=== PATIENT | female | born 1950 | race Caucasian/White ===

== ENCOUNTER 2020-11-12 10:33 | Outpatient (REF) | payer MEDICARE, OTHER, SELFPAY ==
[2020-11-12 10:48] LABS: MANUAL DIFF FLAG NO
[2020-11-12 10:55] LABS: Basophils Absolute Auto 0.1 X10*3/uL (0.0-0.2); Eosinophils Absolute Auto 0.3 X10*3/uL (0.0-0.4); Eosinophils Percent Auto 3.4 % (0-4); Hematocrit 45.8 % (37-47); Hemoglobin 14.7 g/dl (12.0-16.0); Imm Gran Abs Auto 0.03 X10*3/uL (0.00-0.03); Imm Gran Pct Auto 0.4 % (0.0-0.4); Lymphocytes Absolute Auto 2.3 X10*3/uL (1.2-4.9); Lymphocytes Percent Auto 27.4 % (20-40); Mean Corpuscular HGB Conc 32.1 g/dl (31.0-35.0); Mean Corpuscular Hemoglobin 30.6 pg (27.0-33.0); Mean Corpuscular Volume 95.2 fL (80-98); Mean Platelet Volume 9.9 fL (9.4-12.3); Monocytes Absolute Auto 0.7 X10*3/uL (0.1-1.2); Neutrophils Absolute Auto 4.9 X10*3/uL (2.0-8.3); Neutrophils Percent Auto 59.8 % (45-73); Platelet Count 336 X10*3/uL (160-400); Red Blood Count 4.81 X10*6/uL (4.20-5.50); Red Cell Distribution Width 11.9 % (11.0-16.0); White Blood Count 8.2 X10*3/uL (4.8-10.8)
[2020-11-12 11:04] LABS: Estimated Average Glucose 114 mg/dL; Hemoglobin A1c % 5.6 %
[2020-11-12 11:10] LABS: Glucose Urine UA NEG (NEG); Leukocyte Esterase Urine 1+ (NEG); Nitrite Urine NEG (NEG); Urine Blood 1+ (NEG); Urine Ketones NEG (NEG); Urine Protein NEG (NEG-TRACE)
[2020-11-12 11:15] LABS: Appearance Urine HAZY; Color Urine YELLOW
[2020-11-12 11:27] LABS: Alanine Aminotransferase 13 U/L (0-31); Alkaline Phosphatase 90 U/L (39-117); Anion Gap 12 (12-20); Aspartate Amino Transferase 18 U/L (5-31); Bilirubin Total 0.7 mg/dL (0.0-1.0); Blood Urea Nitrogen 14 mg/dL (9-16); Calcium 8.6 mg/dL (8.4-10.2); Carbon Dioxide 29 mmol/L (22-29); Chloride 104 mmol/L (96-108); Cholesterol 158 mg/dL; Estimated Glomerular Filt Rate > 60; Glucose Fasting 105 mg/dL (60-99); HDL Cholesterol 67 mg/dL; LDL Cholesterol Calculated 76 mg/dl; Potassium 4.4 mmol/L (3.3-5.1); Sodium 141 mmol/L (135-145); Total Protein 6.8 g/dL (6.5-8.0); Triglycerides 75 mg/dL
[2020-11-12 11:54] LABS: TSH reflex Free T4 6.31 uIU/mL (0.32-4.0); Vitamin D 25-OH Total 46.9 ng/mL (>30)
[2020-11-12 12:02] LABS: Squamous Epithelial Cell Urine 1+ /LPF
[2020-11-12 12:03] LABS: Bacteria Urine TRACE /LPF; Hyaline Casts Urine 0-2 /LPF; Mucus Urine 1+ /LPF; Renal Epithelial Cells Urine 1+ /LPF
[2020-11-12 12:36] LABS: Free T4 (Free Thyroxine) 1.35 ng/dL (0.71-1.85)
[2020-11-12 16:00] LABS: Reflex LDLD? No
== END 2020-11-12 10:34 | disposition home or self-care (01) ==
LOC: HO.LNP 10:33
PROVIDERS: PCP Internal Medicine; Visit Provider Internal Medicine
DX: E03.9 Hypothyroidism, unspecified (principal); R73.03 Prediabetes; E78.00 Pure hypercholesterolemia, unspecified; E55.9 Vitamin D deficiency, unspecified; I10 Essential (primary) hypertension; R31.29 Other microscopic hematuria
CPT/HCPCS: 80053; 80061; 81001; 81003; 82306; 83036; 84439; 84443; 85025

== ENCOUNTER 2020-12-17 09:40 | Outpatient (REF) | payer MEDICARE, OTHER, SELFPAY ==
--- NOTE | ~2020-12-17 | MM_ITS ---
EXAMINATION: BONE DENSITOMETRY CLINICAL INDICATION: Screening for osteoporosis. COMPARISON: Baseline BD dated 11/16/2017. TECHNIQUE: Using a [employer] DXA System (software version: 13.1) manufactured by [employer], dual-energy x-ray absorptiometry was performed of the lumbar spine and left hip. The images are of good technical quality. Summary results are attached. FINDINGS: AP SPINE L2-L4 (L3) (excluding L1 and L3): The data of L1-L4 has been changed to exclude the L1 and L3 vertebral bodies, because degenerative changes at these levels may cause overestimation of lumbar spine density. Current: BMD 0.943 g/cm2, Z-score -1.2, T-score -2.1, osteopenia, 1.6% decrease from baseline (<5% change is not significant). Baseline: BMD 0.958 g/cm2. LEFT FEMUR, NECK: Current: BMD 0.765 g/cm2, Z-score -0.8, T-score -2.0, osteopenia. Baseline: BMD 0.826 g/cm2. LEFT FEMUR, TOTAL: Current: BMD 0.850 g/cm2, Z-score -0.4, T-score -1.3, osteopenia, 4.4% decrease from baseline (<5% change is not significant). Baseline: BMD 0.889 g/cm2. IDENTIFIED RISK FACTORS: Height loss, history of fracture (adult). Early menopause, secondary osteoporosis. HISTORY OF FRACTURE: Ankle. MEDICATIONS: Vitamin D. MM/XR DEXA axial skeleton IMPRESSION: 1. DIAGNOSIS: Osteopenia based on the lowest T-score value of -2.1 in the lumbar spine applying World Health Organization criteria. 2. 10-YEAR FRACTURE RISK PREDICTION, FRAX: Major osteoporotic fracture (clinical spine, forearm, hip or shoulder) 10.4%. Hip fracture 1.8%. 3. Treatment Recommendations: NOF guidelines recommend consideration for treatment in postmenopausal women and men age 50 and older presenting with the following: -A hip or vertebral (clinical or morphometric) fracture. -T-score less than or equal to -2.5 at the femoral neck or spine after appropriate evaluation to exclude secondary causes. -Low bone mass at the hip or spine and a 10-year fracture probability by FRAX of greater than or equal to 3% for hip fracture or greater than or equal to 20% for major osteoporotic fracture based on the [place] adapted WHO algorithm. 4. Other Recommendations: All treatment decisions require clinical judgment and consideration of individual patient factors, including patient preferences, comorbidities, previous drug use, risk factors not captured in the FRAX model (e.g. frailty, falls, vitamin D deficiency, increased bone turnover, interval significant decline in bone density) and possible under or overestimation of fracture risk by FRAX. Additional medical evaluation for secondary cause of low bone mineral density may be appropriate. FUTURE SCAN RECOMMENDATION: People with diagnosed cases of osteoporosis or at high risk for fracture should have regular bone mineral density tests. For patients eligible for Medicare, routine testing is allowed once every 2 years. The testing frequency can be increased to one year for patients who have rapidly progressing disease, those who are receiving or discontinuing medical therapy to restore bone mass, or have additional risk factors.
== END 2020-12-17 09:41 | disposition home or self-care (01) ==
LOC: HO.MAMMO 09:40
PROVIDERS: Visit Provider Internal Medicine
DX: Z13.820 Encounter for screening for osteoporosis (principal); Z78.0 Asymptomatic menopausal state; R29.890 Loss of height; Z79.899 Other long term (current) drug therapy
CPT/HCPCS: 77080

== ENCOUNTER 2021-05-05 09:02 | Outpatient (REF) | payer MEDICARE, OTHER, SELFPAY ==
--- NOTE | ~2021-05-05 | MM_ITS ---
EXAMINATION: MM SCREENING DIGITAL BREAST TOMOSYNTHESIS, BILATERAL CLINICAL INFORMATION: Screening. Asymptomatic. The lifetime risk of breast cancer based on the Tyrer-Cuzick Model is 4%. COMPARISON: Mammography: 04/29/2020, 04/24/2019, 04/21/2018 TECHNIQUE: Digital breast tomosynthesis is performed in both the craniocaudal and mediolateral oblique views along with computer-aided detection (CAD). Synthesized 2D images are generated from the tomosynthesis. FINDINGS: The breasts are heterogeneously dense, which may obscure small masses (ACR BI-RADS breast composition Category c). Parenchymal pattern is similar to prior studies. There are chronic bilateral parenchymal asymmetries similar to prior exams. No developing density. No interval mass or architectural abnormality or abnormal calcifications. The axilla and skin contours are unremarkable. MM/MM tomosynthesis screening BI IMPRESSION: There are no significant changes from prior exams. ASSESSMENT: BI-RADS 2: Benign RECOMMENDATION: Routine annual mammography screening. This patient's information was entered into a reminder system with a target due date for their next mammogram.
== END 2021-05-05 09:03 | disposition home or self-care (01) ==
LOC: HO.MAMMO 09:02
PROVIDERS: PCP Internal Medicine; Visit Provider Internal Medicine
DX: Z12.31 Encounter for screening mammogram for malignant neoplasm of breast (principal)
CPT/HCPCS: 77063; 77067

== ENCOUNTER 2021-05-23 10:35 | Outpatient (REF) | payer MEDICARE, OTHER, SELFPAY ==
[2021-05-23 11:19] LABS: Alanine Aminotransferase 13 U/L (0-31); Albumin Level 3.8 g/dL (3.5-5.0); Alkaline Phosphatase 85 U/L (39-117); Aspartate Amino Transferase 18 U/L (5-31); Bilirubin Direct 0.2 mg/dL (0.0-0.5); Bilirubin Total 0.5 mg/dL (0.0-1.0); Cholesterol 151 mg/dL; HDL Cholesterol 63 mg/dL; LDL Cholesterol Calculated 74 mg/dl; Total Protein 6.2 g/dL (6.5-8.0); Triglycerides 74 mg/dL
[2021-05-23 11:41] LABS: TSH reflex Free T4 5.89 uIU/mL (0.32-4.0)
[2021-05-23 11:44] LABS: Reflex LDLD? No
[2021-05-23 12:16] LABS: Free T4 (Free Thyroxine) 1.31 ng/dL (0.71-1.85)
== END 2021-05-23 10:36 | disposition home or self-care (01) ==
LOC: HO.LNP 10:35
PROVIDERS: Visit Provider Internal Medicine
DX: E78.00 Pure hypercholesterolemia, unspecified (principal); E03.9 Hypothyroidism, unspecified
CPT/HCPCS: 80061; 80076; 84439; 84443

== ENCOUNTER 2021-07-03 20:03 | Emergency (ER) | payer MEDICARE, OTHER, SELFPAY ==
--- NOTE | ~2021-07-03 | XR_ITS ---
EXAMINATION: XR CHEST CLINICAL INFORMATION: Cough and palpitations. COMPARISON: Chest radiograph dated from 06/12/2017. TECHNIQUE: AP view of the chest was obtained. FINDINGS: No significant abnormality is noted involving the heart, lungs, mediastinum, bony thorax or soft tissues. XR/XR chest 1V IMPRESSION: No acute cardiopulmonary findings.
[2021-07-03 20:08] VITALS: BP 181/98; PULSE 114; RESP 19; TEMP 36.9; O2SAT 96; BMI 35.9
--- NOTE | 2021-07-03 20:13 | ECG_ITS ---
Test Reason : CHEST PAIN Blood Pressure : / mmHG Vent. Rate : 111 BPM Atrial Rate : 111 BPM P-R Int : 160 ms QRS Dur : 076 ms QT Int : 344 ms P-R-T Axes : 072 -17 050 degrees QTc Int : 467 ms Sinus tachycardia RSR' or QR pattern in V1 suggests right ventricular conduction delay Borderline ECG No Previous EKG's. Referred By: Generic ED Physician Electronically Signed By:PAUL KING MD
--- NOTE | 2021-07-03 20:25 | ED.ARRPALP ---
HPI - Arrhythmia/Palpitations General Chief Complaint: Arrhythmia/Palpitations Stated Complaint: palpitations Time Seen by Provider: 07/03/21 20:25 Source: patient Mode of arrival: ambulatory Limitations: no limitations History of Present Illness HPI narrative: Patient with no history of cardiac arrhythmias in the past had slight palpitation last night which lasted only for few minutes today while at rest noticed sudden onset of palpitation which lasted longer with dizziness got diaphoretic nauseated had some chest tightness lasted longer than last night when patient arrived heart rate was 114 supraventricular tachycardia. Patient was feeling much better at this time. Patient history of hypothyroidism recently increased the dose of levothyroxine from 88 mcg 200 mcg for TSH of 5.89 on 05/23 Related Data Allergies Allergy/AdvReac Type Severity Reaction Status Date / Time Penicillins [PENICILLINS] Allergy Intermediate RASH Verified 07/03/21 20:08 Review of Systems Review of Systems: Yes all other systems are reviewed and are negative PMFSH Past Medical History Medical History High cholesterol Hypothyroid Social History Social History Alcohol intake: never Patient Tobacco Use Status: Never used Tobacco Use of substances other than those prescribed or required for medical reasons: No Advance Directives: No Advance Directives Information Provided: No Physical Exam Vital Signs: Vital Signs: Last Vital Signs Temp 98.4 F 07/03/21 20:08 Pulse 101 H 07/03/21 20:44 Resp 19 07/03/21 20:08 BP 188/89 H 07/03/21 20:44 Pulse Ox 96 07/03/21 20:08 Body Mass Index 35.9 Appearance: Alert. Oriented X3. No acute distress. Eyes: No pallor/ icterus ENT: Pharynx normal. Oral Mucosa moist Neck: Normal inspection. Neck supple. CVS: Tachycardia no murmur or gallop Pulses normal. Respiratory: No respiratory distress. Equal air entry bilateral, no wheezing/rales/rhonchi Abdomen: Soft and nontender. Bowel sounds are present, no mass palpable, no CVA tenderness Skin: Skin warm and dry. Normal skin color. Normal skin turgor. Extremities: No lower extremity edema. No calf tenderness Neuro: Oriented X 3. No motor deficit. MDM - Arrhythmia/Palpitations MDM Narrative Medical decision making narrative: Patient with SVT responded to IV Lopressor heart rate in 70s now clinically euthyroid. Patient advised to follow-up with insulation nozzleman for further evaluation ask her to come back to the ER if recurrence of episodes of lasting longer Lab Data Attestation: I reviewed the patient's lab results. Result diagrams: 07/03/21 20:07/03/21 20: Labs: Lab Results 07/03/21 07/03/21 07/03/21 Range/Units 20: 20: 20: WBC 10.5 (4.8-10.8) X10*3/uL RBC 4.59 (4.20-5.50) X10*6/uL Hgb 14.5 (12.0-16.0) g/dl Hct 43.9 (37-47) % MCV 95.6 (80-98) fL MCH 31.6 (27.0-33.0) pg MCHC 33.0 (31.0-35.0) g/dl RDW 12.4 (11.0-16.0) % Plt Count 325 (160-400) X10*3/uL MPV 9.4 (9.4-12.3) fL Immature Gran % (Auto) 0.3 (0.0-0.4) % Neut % (Auto) 58.8 (45-73) % Lymph % (Auto) 28.5 (20-40) % Mclean % (Auto) 8.6 (2-11) % Eos % (Auto) 3.0 (0-4) % Baso % (Auto) 0.8 (0-2) % Lymph # (Auto) 3.0 (1.2-4.9) X10*3/uL Mclean # (Auto) 0.9 (0.1-1.2) X10*3/uL Eos # (Auto) 0.3 (0.0-0.4) X10*3/uL Baso # (Auto) 0.1 (0.0-0.2) X10*3/uL Abs Immat Gran (auto) 0.03 (0.00-0.03) X10*3/uL Absolute Neuts (auto) 6.2 (2.0-8.3) X10*3/uL Absolute Nucleated RBC 0.000 (0.0-0.012) X10*3/uL Nucleated RBC % (auto) 0.0 (0.0-0.2) /100WBC Sodium 138 (135-145) mmol/L Potassium 3.9 (3.3-5.1) mmol/L Chloride 102 (96-108) mmol/L Carbon Dioxide 25 (22-29) mmol/L Anion Gap 15 (12-20) BUN 12 (9-16) mg/dL Creatinine 0.92 (0.5-1.4) mg/dL Estim Creat Clear Calc 56.7 Estimated GFR > 60 Random Glucose 111 (60-115) mg/dL Calcium 8.8 (8.4-10.2) mg/dL Magnesium 2.0 (1.6-2.6) mg/dL Troponin I High Sens 6.2 (<3.5-17.0) ng/L ECG Data Attestation: I personally reviewed and interpreted this ECG as follows: Interpretation: Sinus tachycardia heart rate 111 beats per minute no acute ST T wave changes no acute ischemia Discharge Plan Discharge Clinical Impression: Supraventricular tachycardia Patient Disposition: Home, Self-Care Instructions: Supraventricular Tachycardia (ED) Additional Instructions: Rest at home Decrease caffeine intake Report to the ER/PCP if frequent/longer episode of palpitation Follow-up with insulation nozzleman for further management Referrals: Mark Mejia MD [Physician] - 2 weeks Interventions: ED Discharge Assessment Last Done: 07/03/21 22:02 Discharge Date/Time: 07/03/21 22:03
[2021-07-03 20:33] LABS: MANUAL DIFF FLAG NO
[2021-07-03 20:36] LABS: Basophils Absolute Auto 0.1 X10*3/uL (0.0-0.2); Basophils Percent Auto 0.8 % (0-2); Eosinophils Absolute Auto 0.3 X10*3/uL (0.0-0.4); Hematocrit 43.9 % (37-47); Hemoglobin 14.5 g/dl (12.0-16.0); Imm Gran Abs Auto 0.03 X10*3/uL (0.00-0.03); Imm Gran Pct Auto 0.3 % (0.0-0.4); Lymphocytes Percent Auto 28.5 % (20-40); Mean Corpuscular Hemoglobin 31.6 pg (27.0-33.0); Mean Corpuscular Volume 95.6 fL (80-98); Mean Platelet Volume 9.4 fL (9.4-12.3); Monocytes Absolute Auto 0.9 X10*3/uL (0.1-1.2); Monocytes Percent Auto 8.6 % (2-11); Neutrophils Absolute Auto 6.2 X10*3/uL (2.0-8.3); Neutrophils Percent Auto 58.8 % (45-73); Platelet Count 325 X10*3/uL (160-400); Red Blood Count 4.59 X10*6/uL (4.20-5.50); Red Cell Distribution Width 12.4 % (11.0-16.0); White Blood Count 10.5 X10*3/uL (4.8-10.8)
[2021-07-03 20:44] VITALS: BP 188/89; PULSE 101
[2021-07-03] MEDS: Metoprolol Tartrate 5 MG/5 ML VIAL IVPUSH (20:44)
[2021-07-03 20:49] LABS: Anion Gap 15 (12-20); Blood Urea Nitrogen 12 mg/dL (9-16); Calcium 8.8 mg/dL (8.4-10.2); Carbon Dioxide 25 mmol/L (22-29); Chloride 102 mmol/L (96-108); Creatinine Clr Calc Pharmacy 56.7; Estimated Glomerular Filt Rate > 60; Glucose Random 111 mg/dL (60-115); Potassium 3.9 mmol/L (3.3-5.1); Sodium 138 mmol/L (135-145)
[2021-07-03 20:55] LABS: Troponin-I High Sensitivity 6.2 ng/L (<3.5-17.0)
== END 2021-07-03 22:03 | disposition home or self-care (01) ==
PROVIDERS: Emergency Provider Internal Medicine; PCP Internal Medicine
DX: I47.1 Supraventricular tachycardia (principal); E78.5 Hyperlipidemia, unspecified; Z87.891 Personal history of nicotine dependence
CPT/HCPCS: 36415; 71045; 80048; 83735; 84484; 85025; 93005; 96374; 99285

== ENCOUNTER 2021-07-06 12:10 | Emergency (ER) | payer MEDICARE, OTHER, SELFPAY ==
--- NOTE | 2021-07-06 | ECG_ITS ---
Test Reason : DIZZINESS Blood Pressure : / mmHG Vent. Rate : 068 BPM Atrial Rate : 068 BPM P-R Int : 176 ms QRS Dur : 070 ms QT Int : 412 ms P-R-T Axes : 061 063 060 degrees QTc Int : 438 ms Normal sinus rhythm Nonspecific ST abnormality Inferior leads Abnormal ECG When compared with ECG of 03-JUL-2021 20:27, Vent. rate has decreased BY 43 BPM Referred By: Familia Billingsley Electronically Signed By:PAUL KIGN MD
[2021-07-06 12:25] VITALS: BP 150/90; PULSE 70; O2SAT 96
[2021-07-06 12:30] VITALS: BP 169/82; PULSE 69; PULSE 75; RESP 14; RESP 17; TEMP 36.9; O2SAT 94; O2SAT 95; BMI 23.3
[2021-07-06 12:31] VITALS: BP 143/76
--- NOTE | 2021-07-06 12:43 | ED_ITS ---
HPI - Dizziness General Chief Complaint: Dizziness Stated Complaint: n/v Time Seen by Provider: 07/06/21 12:20 Source: patient Mode of arrival: ambulatory Limitations: no limitations History of Present Illness HPI Narrative: patient with recent dental infection followed by SVT. Was seen for SVT in this ED and started and metoprolol and discharged home. patient has had recent increase of her thyroxine. Today had an episode of dizziness and nausea. Maday felt off balance with nausea. Currently has some nausea MD elicited complaint: dizziness Onset (ago): hour(s) Timing: sudden onset Severity: mild Description: off-balance Exacerbating factors: change in body position Associated symptoms: nausea and vomiting Related Data Allergies Allergy/AdvReac Type Severity Reaction Status Date / Time Penicillins [PENICILLINS] Allergy Intermediate RASH Verified 07/03/21 20:08 Review of Systems Constitutional: Constitutional: Reports no additional constitutional complaints Eyes: Eyes: Reports no additional eye complaints ENT: Denies dizziness Cardiovascular: Cardiovascular: Reports no additional cardiovascular complaints Respiratory: Respiratory: Reports as per HPI Gastrointestinal: Gastrointestinal: Reports no additional gastrointestinal complaints Genitourinary: Genitourinary: Reports no additional female genitourinary complaints Musculoskeletal: Musculoskeletal: Reports no additional musculoskeletal complaints Integumentary/Breasts: Skin/Breast: Denies rash Neurologic: Reports system reviewed and no additional complaints, except as documented, Denies dizziness and Denies Sensory deficit (Neuro) Psychiatric: Psychiatric: Denies anxiety PMFSH Past Medical History Medical History High cholesterol Hypothyroid Social History Social History Alcohol intake: never Patient Tobacco Use Status: Former Tobacco user Use of substances other than those prescribed or required for medical reasons: No Advance Directives: No Advance Directives Information Provided: Yes Physical Exam Vital Signs: Vital Signs: Last Vital Signs Temp 98.6 F 07/06/21 14:19 Pulse 71 07/06/21 14:19 Resp 17 07/06/21 14:19 BP 142/85 H 07/06/21 14:19 Pulse Ox 94 07/06/21 14:19 Body Mass Index 23.3 Const: General: healthy appearing Nutritional Appearance: obese Orientation/consciousness: oriented to person and patient oriented x3 Limitations: no limitations HENMT: Head: Yes normal to inspection Ears: external ears normal General nose exam: Normal external nose present Mouth: Normal oral and palatal mucosa present and oropharynx normal Throat: Yes posterior oropharynx normal Eyes: General: appearance normal, both eyes and all related structures Neck: Other: supple Neck: Yes normal visual inspection Chest: Chest palpation & inspection: normal inspection of the chest Resp: Auscultation: clear to auscultation bilaterally Cardio: Jugular venous distension: no JVD Rate: regular rate Rhythm: regular rhythm Heart sounds: S1 normal heart sound present and S2 normal heart sound present GI: Inspection: Yes normal to inspection Palpation (GI): Soft to palpation, nontender and No hepatosplenomegaly present Auscultation: normal bowel sounds : General: Yes no CVA tenderness Back/Spine/Pelvis: Back: no CVA tenderness Skin: General skin exam: no rashes or lesions noted Neuro: General: oriented to person and patient oriented x3 Cranial nerves: Yes CN's II-XII intact bilaterally Motor exam (neuro): 5/5 motor strength present throughout Sensory Exam: No Sensory deficit (Neuro) Extrem: General: Yes normal to inspection Psych: Appearance: grossly normal Course Reevaluation(s) Reevaluation #1: patient looks well, EKG and labs are normal, patient likely feeling changes in BP with standing since being on the betablocker. Discussed this with the patient Time: 14:30 [facility] - Dizziness Lab Data Result diagrams: 07/06/21 13:27 07/06/21 13:27 Labs: Lab Results 07/06/21 07/06/21 07/06/21 Range/Units 13:26 13:27 13:27 WBC 9.2 (4.8-10.8) X10*3/uL RBC 4.51 (4.20-5.50) X10*6/uL Hgb 14.1 (12.0-16.0) g/dl Hct 43.0 (37.0-47.0) % MCV 95.3 (80.0-98.0) fL MCH 31.3 (27.0-33.0) pg MCHC 32.8 (31.0-35.0) g/dl RDW 12.5 (11.0-16.0) % Plt Count 297 (160-400) X10*3/uL MPV 9.6 (9.4-12.3) fL Immature Gran % (Auto) 0.3 (0.0-0.4) % Neut % (Auto) 73.8 H (45-73) % Lymph % (Auto) 15.5 L (20-40) % Davidson % (Auto) 7.6 (2-11) % Eos % (Auto) 1.9 (0-4) % Baso % (Auto) 0.9 (0-2) % Lymph # (Auto) 1.4 (1.2-4.9) X10*3/uL Davidson # (Auto) 0.7 (0.1-1.2) X10*3/uL Eos # (Auto) 0.2 (0.0-0.4) X10*3/uL Baso # (Auto) 0.1 (0.0-0.2) X10*3/uL Abs Immat Gran (auto) 0.03 (0.00-0.03) X10*3/uL Absolute Neuts (auto) 6.82 (2.0-8.3) x10*3/uL Absolute Nucleated RBC 0.000 (0.0-0.012) X10*3/uL Nucleated RBC % (auto) 0.0 (0.0-0.2) /100WBC Sodium 139 (135-145) mmol/L Potassium 4.4 (3.3-5.1) mmol/L Chloride 104 (96-108) mmol/L Carbon Dioxide 27 (22-29) mmol/L Anion Gap 12 (12-20) BUN 12 (9-16) mg/dL Creatinine 0.92 (0.5-1.4) mg/dL Estim Creat Clear Calc 51.2 Estimated GFR > 60 Random Glucose 120 H (60-115) mg/dL Calcium 8.7 (8.4-10.2) mg/dL Troponin I High Sens (<3.5-17.0) ng/L COVID-19 ([facility]) Negative (Negative) COVID-19 Clin Com See Note 07/06/21 Range/Units 13:27 WBC (4.8-10.8) X10*3/uL RBC (4.20-5.50) X10*6/uL Hgb (12.0-16.0) g/dl Hct (37.0-47.0) % MCV (80.0-98.0) fL MCH (27.0-33.0) pg MCHC (31.0-35.0) g/dl RDW (11.0-16.0) % Plt Count (160-400) X10*3/uL MPV (9.4-12.3) fL Immature Gran % (Auto) (0.0-0.4) % Neut % (Auto) (45-73) % Lymph % (Auto) (20-40) % Davidson % (Auto) (2-11) % Eos % (Auto) (0-4) % Baso % (Auto) (0-2) % Lymph # (Auto) (1.2-4.9) X10*3/uL Davidson # (Auto) (0.1-1.2) X10*3/uL Eos # (Auto) (0.0-0.4) X10*3/uL Baso # (Auto) (0.0-0.2) X10*3/uL Abs Immat Gran (auto) (0.00-0.03) X10*3/uL Absolute Neuts (auto) (2.0-8.3) x10*3/uL Absolute Nucleated RBC (0.0-0.012) X10*3/uL Nucleated RBC % (auto) (0.0-0.2) /100WBC Sodium (135-145) mmol/L Potassium (3.3-5.1) mmol/L Chloride (96-108) mmol/L Carbon Dioxide (22-29) mmol/L Anion Gap (12-20) BUN (9-16) mg/dL Creatinine (0.5-1.4) mg/dL Estim Creat Clear Calc Estimated GFR Random Glucose (60-115) mg/dL Calcium (8.4-10.2) mg/dL Troponin I High Sens 3.6 (<3.5-17.0) ng/L COVID-19 ([facility]) (Negative) COVID-19 Clin Com Discharge Plan Discharge Clinical Impression: Dizziness Adverse reaction to drug Qualifiers: Encounter type: initial encounter Qualified Code(s): T50.905A - Adverse effect of unspecified drugs, medicaments and biological substances, initial encounter Patient Disposition: Home, Self-Care Instructions: Lightheadedness (ED) Referrals: Andrew Waldrop MD [Primary Care Provider] - 1 week
[2021-07-06 13:32] LABS: Basophils Absolute Auto 0.1 X10*3/uL (0.0-0.2); Basophils Percent Auto 0.9 % (0-2); Eosinophils Absolute Auto 0.2 X10*3/uL (0.0-0.4); Eosinophils Percent Auto 1.9 % (0-4); Hemoglobin 14.1 g/dl (12.0-16.0); Imm Gran Abs Auto 0.03 X10*3/uL (0.00-0.03); Imm Gran Pct Auto 0.3 % (0.0-0.4); Lymphocytes Absolute Auto 1.4 X10*3/uL (1.2-4.9); Lymphocytes Percent Auto 15.5 % (20-40); MANUAL DIFF FLAG NO; Mean Corpuscular HGB Conc 32.8 g/dl (31.0-35.0); Mean Corpuscular Hemoglobin 31.3 pg (27.0-33.0); Mean Corpuscular Volume 95.3 fL (80.0-98.0); Mean Platelet Volume 9.6 fL (9.4-12.3); Monocytes Absolute Auto 0.7 X10*3/uL (0.1-1.2); Monocytes Percent Auto 7.6 % (2-11); Neutrophils Absolute Auto 6.82 x10*3/uL (2.0-8.3); Neutrophils Percent Auto 73.8 % (45-73); Platelet Count 297 X10*3/uL (160-400); Red Blood Count 4.51 X10*6/uL (4.20-5.50); Red Cell Distribution Width 12.5 % (11.0-16.0); White Blood Count 9.2 X10*3/uL (4.8-10.8)
[2021-07-06 13:49] LABS: COVID-19 Test Negative (Negative)
[2021-07-06 13:54] LABS: Anion Gap 12 (12-20); Blood Urea Nitrogen 12 mg/dL (9-16); Calcium 8.7 mg/dL (8.4-10.2); Carbon Dioxide 27 mmol/L (22-29); Chloride 104 mmol/L (96-108); Creatinine Clr Calc Pharmacy 51.2; Estimated Glomerular Filt Rate > 60; Glucose Random 120 mg/dL (60-115); Potassium 4.4 mmol/L (3.3-5.1); Sodium 139 mmol/L (135-145)
[2021-07-06 14:01] LABS: Troponin-I High Sensitivity 3.6 ng/L (<3.5-17.0)
[2021-07-06 14:19] VITALS: BP 142/85; PULSE 71; RESP 17; TEMP 37; O2SAT 94
[2021-07-06 14:56] VITALS: BP 140/89; PULSE 77; RESP 15; TEMP 37; O2SAT 93
== END 2021-07-06 15:15 | disposition home or self-care (01) ==
PROVIDERS: Emergency Provider Emergency Medicine; PCP Internal Medicine
DX: R42 Dizziness and giddiness (principal); R11.0 Nausea; T44.7X5A Adverse effect of beta-adrenoreceptor antagonists, initial encounter; Y92.019 Unspecified place in single-family (private) house as the place of occurrence of the external cause; E78.00 Pure hypercholesterolemia, unspecified; Z20.822 Contact with and (suspected) exposure to COVID-19
CPT/HCPCS: 36415; 80048; 84484; 85025; 87635; 93005; 99283; 99285

== ENCOUNTER → 2021-07-14 11:25 | Outpatient (BNVA) | payer MEDICARE, OTHER, SELFPAY | PROVIDERS: PCP Internal Medicine; Referring Provider Internal Medicine; Visit Provider Internal Medicine Cardiovascular Disease | DX: R00.2 Palpitations (principal) | CPT/HCPCS: 93005; 99202 ==

== ENCOUNTER → 2021-07-22 13:42 | Outpatient (REF) | payer MEDICARE, OTHER, SELFPAY ==
--- NOTE | 2021-07-22 13:44 | HM_ITS ---
Patient is a 71-year-old female. REQUESTING PROVIDER: Mark Mejia M.D. INDICATION FOR TEST: Palpitations. INTERPRETATION: The patient is hooked up to cardiac event monitor from 07/22/2021, to 08/21/2021. I was asked to interpret this report today. FINDINGS: Baseline rhythm was normal sinus rhythm with average heart rate varying from 62 beats per minute to 97 beats per minute. There were rare isolated PVCs noted. The patient reported 9 events; however, only had symptoms reported on 1 of the events, which correlated to sinus rhythm. Remainder of the 7 events, no symptoms were selected and 2 of those correlated with isolated PVCs. CONCLUSION: 1. Event monitor is remarkable. Baseline normal sinus rhythm with very rare PVCs. 2. 2 of the 8 events reported by the patient with no symptoms selected to correlate rare isolated PVCs. MD FABIOLA Khan/MODL / [id number]
== END ==
LOC: HO.CARD 13:42
PROVIDERS: Visit Provider Internal Medicine Cardiovascular Disease
DX: R00.2 Palpitations (principal)
CPT/HCPCS: 93270

== ENCOUNTER → 2021-09-01 13:46 | Outpatient (REF) | payer MEDICARE, OTHER, SELFPAY ==
--- NOTE | 2021-09-01 13:50 | CA_ITS ---
Transthoracic Echocardiogram Patient (Last, First, Middle): Lily Feliz, Gender: Female Date of : 1950 Age: 71 Procedure Date: 09/01/2021 Procedure Type: Transthoracic Echocardiogram Location: OP Height: 157.48 cm Weight: 88.45 kg BSA: 1.89 m2 Heart Rate: bpm BP: 124 / 70 mmHg Cable Maintainer: Referring MD: Mark Mejia MD Senior Technical Project Manager: Mark Mejia MD Symptoms: R00.2 - Palpitations Study Quality: Fair ECG Rhythm: Sinus Conclusions: - Normal left ventricular size and systolic function. - Diastolic function is normal for age. - Normal right ventricular cavity size and systolic function. - No significant valvular or pericardial pathology. Findings Left Ventricle Normal left ventricular size and systolic function. There is mildly increased left ventricular wall thickness. The visually estimated ejection fraction is between 55-60%. There is no evidence of regional wall motion abnormalities. Diastolic function is normal for age. Right Ventricle Normal right ventricular cavity size and systolic function. Atria Both atria are normal in size. Aortic Valve The aortic valve structure and function is likely normal. There is no aortic valve stenosis. There is no aortic valve regurgitation. Mitral Valve Normal mitral valve structure and function. There is trace mitral valve regurgitation. There is no mitral valve stenosis. Pulmonic Valve The pulmonic valve is likely normal. Tricuspid Valve Normal tricuspid valve structure and function. There is no tricuspid valve regurgitation. Normal right atrial pressure. There is no evidence of pulmonary hypertension. Great Vessels All visible segments of the aorta are normal in size. The pulmonary artery was not well visualized. Venous The inferior vena cava is normal in size and collapses greater than 50% with inspiration. Pericardium/Pleural There is no evidence of pericardial effusion. Prior Study Comparison No prior study available for comparison. Measurements 2D Linear Measurements IVSd: 1.14 0.6-0.9/0.6-1.0 cm LVIDd: 3.37 3.9-5.3/4.2-5.9 cm LVIDd Index: 1.78 2.4-3.2/2.2-3.1 cm/m2 LVIDs: 2.30 2.0-3.6 cm LVPWd: 1.13 0.7-1.1 cm Ao Root: 2.90 2.1-3.5 cm LA Diam: 2.30 2.7-3.8/3.0-4.0 cm LAIDs Index: 1.22 1.5-2.3 cm/m2 LV Mass: 146.78 67-162/88-224 g LV Mass Index: 77.66 43-95/49-115 g/m2 LVOT Diam: 1.80 3.0+(-)1.3 cm 2D Systolic Function EF 4C: 54.90 >55% EF 2C: 57.80 >55% EF BiP: 57.40 >55% Mitral Valve MV Pk E: 0.55 MV PK A: 0.85 MV Decel Time: 266.00 E/A: 0.60 E'Lateral: 9.14 E'Medial: 6.74 E/E' Med: 8.10 E/E' Lat: 6.00 PHT: 78.00 MVA PHT: 2.82 Decel [place]: 2.07 Aortic Valve AoV Pk Tadeo: 1.15 AoV Mn Tadeo: 0.75 AoV VTI: 0.28 AoV Pk Grad: 5.00 Aov Mn Grad: 3.00 KOFI Cont.VTI: 2.28 LVOT LVOT Pk Tadeo: 1.06 LVOT Mn Tadeo: 0.63 LVOT VTI: 0.25 LVOT Pk Grad: 4.00 LVOT Mn Grad: 2.00 LVOT Diam: 1.80 LVOT Area: 2.54 Diastolic Function MV Pk E: 0.55 MV Pk A: 0.85 E/A: 0.60 E'Medial: 6.74 E/E' Med: 8.10 E' Laterial: 9.14 E/E' Lat: 6.00 Right Ventricle TAPSE (mm): 17.00 TVS' Tadeo: 11.00 Tricuspid Valve TR Pk Tadeo: 2.31 TR Pk Grad: 21.00 RA Press: 3.00 RVSP: 24.00 Great Vessels Aorta Ao Root-2D: 2.90 2.0-3.7 cm Ao Asc: 3.30 2.1-3.4 cm Pulmonary Valve PV Pk Tadeo: 0.87 Peak PV Grad: 3.00 Updated in Other Vendor System with Status of Final Mark Mejia MD electronically signed on 09/02/2021 12:34:57 PM with status of Final
== END ==
LOC: HO.CARD 13:46
PROVIDERS: Visit Provider Internal Medicine Cardiovascular Disease
DX: R00.2 Palpitations (principal)
CPT/HCPCS: 93306

== ENCOUNTER → 2021-09-22 14:58 | Outpatient (BNVA) | payer MEDICARE, OTHER, SELFPAY | PROVIDERS: PCP Internal Medicine; Referring Provider Internal Medicine; Visit Provider Internal Medicine Cardiovascular Disease | DX: R00.2 Palpitations (principal) | CPT/HCPCS: 99212 ==

== ENCOUNTER 2021-09-25 10:33 | Outpatient (REF) | payer MEDICARE, OTHER, SELFPAY ==
[2021-09-25 12:33] LABS: Free T4 (Free Thyroxine) 1.23 ng/dL (0.71-1.85)
== END 2021-09-25 10:34 | disposition home or self-care (01) ==
LOC: HO.LNP 10:33
PROVIDERS: Visit Provider Internal Medicine
DX: E03.9 Hypothyroidism, unspecified (principal)
CPT/HCPCS: 84439; 84443

== ENCOUNTER 2021-11-24 10:26 | Outpatient (REF) | payer MEDICARE, OTHER, SELFPAY ==
[2021-11-24 10:39] LABS: MANUAL DIFF FLAG NO
[2021-11-24 11:53] LABS: Basophils Absolute Auto 0.1 X10*3/uL (0.0-0.2); Basophils Percent Auto 1.2 % (0-2); Eosinophils Absolute Auto 0.3 X10*3/uL (0.0-0.4); Hematocrit 45.1 % (37.0-47.0); Hemoglobin 14.3 g/dl (12.0-16.0); Imm Gran Abs Auto 0.03 X10*3/uL (0.00-0.03); Imm Gran Pct Auto 0.3 % (0.0-0.4); Lymphocytes Percent Auto 30.9 % (20-40); Mean Corpuscular HGB Conc 31.7 g/dl (31.0-35.0); Mean Corpuscular Hemoglobin 30.8 pg (27.0-33.0); Mean Corpuscular Volume 97.2 fL (80.0-98.0); Mean Platelet Volume 10.6 fL (9.4-12.3); Monocytes Absolute Auto 0.9 X10*3/uL (0.1-1.2); Monocytes Percent Auto 9.4 % (2-11); Neutrophils Absolute Auto 5.4 x10*3/uL (2.0-8.3); Neutrophils Percent Auto 55.2 % (45-73); Platelet Count 310 X10*3/uL (160-400); Red Blood Count 4.64 X10*6/uL (4.20-5.50); Red Cell Distribution Width 12.4 % (11.0-16.0); White Blood Count 9.8 X10*3/uL (4.8-10.8)
[2021-11-24 12:13] LABS: Alanine Aminotransferase 14 U/L (0-31); Albumin Level 3.8 g/dL (3.5-5.0); Alkaline Phosphatase 86 U/L (39-117); Anion Gap 11 (12-20); Aspartate Amino Transferase 18 U/L (5-31); Bilirubin Total 0.6 mg/dL (0.0-1.0); Blood Urea Nitrogen 15 mg/dL (9-16); Calcium 8.9 mg/dL (8.4-10.2); Carbon Dioxide 29 mmol/L (22-29); Chloride 103 mmol/L (96-108); Cholesterol 155 mg/dL; Estimated Glomerular Filt Rate > 60; Glucose Fasting 105 mg/dL (60-99); HDL Cholesterol 60 mg/dL; LDL Cholesterol Calculated 82 mg/dl; Potassium 4.1 mmol/L (3.3-5.1); Sodium 139 mmol/L (135-145); Total Protein 6.4 g/dL (6.5-8.0); Triglycerides 69 mg/dL
[2021-11-24 12:21] LABS: Vitamin D 25-OH Total 48.5 ng/mL (>30)
[2021-11-24 13:11] LABS: Free T4 (Free Thyroxine) 1.34 ng/dL (0.71-1.85)
== END 2021-11-24 10:27 | disposition home or self-care (01) ==
LOC: HO.LNP 10:26
PROVIDERS: PCP Internal Medicine; Visit Provider Internal Medicine
DX: I10 Essential (primary) hypertension (principal); E78.00 Pure hypercholesterolemia, unspecified; E55.9 Vitamin D deficiency, unspecified; E03.9 Hypothyroidism, unspecified
CPT/HCPCS: 80053; 80061; 82306; 84439; 84443; 85025

== ENCOUNTER 2021-12-01 12:12 | Outpatient (REF) | payer MEDICARE, OTHER, SELFPAY ==
[2021-12-01 12:44] LABS: Appearance Urine CLEAR; Color Urine STRAW; Glucose Urine UA NEG (NEG); Leukocyte Esterase Urine NEG (NEG); Nitrite Urine NEG (NEG); Urine Blood NEG (NEG); Urine Ketones NEG (NEG); Urine Protein NEG (NEG-TRACE)
[2021-12-01 13:07] LABS: RBC Urine 0-2 /HPF (0); Squamous Epithelial Cell Urine TRACE /LPF; WBC Urine 0-2 /HPF (0-4)
== END 2021-12-01 12:13 | disposition home or self-care (01) ==
LOC: HO.LNP 12:12
PROVIDERS: PCP Internal Medicine; Visit Provider Internal Medicine
DX: E78.00 Pure hypercholesterolemia, unspecified (principal); I10 Essential (primary) hypertension
CPT/HCPCS: 81001

== ENCOUNTER → 2021-12-29 11:02 | Outpatient (BNVA) | payer MEDICARE, OTHER, SELFPAY | PROVIDERS: PCP Internal Medicine; Referring Provider Internal Medicine; Visit Provider Internal Medicine Cardiovascular Disease | DX: R00.2 Palpitations (principal); Z79.899 Other long term (current) drug therapy | CPT/HCPCS: 99212 ==

== ENCOUNTER 2022-03-11 08:58 | Emergency (ER) | payer MEDICARE, OTHER, SELFPAY ==
--- NOTE | ~2022-03-11 | XR_ITS ---
EXAMINATION: XR CHEST CLINICAL INFORMATION: COVID positive. COMPARISON: 06/25/2021 chest radiograph. TECHNIQUE: Frontal view of the chest was obtained. FINDINGS: No significant abnormality is noted involving the heart, lungs, mediastinum, bony thorax or soft tissues. XR/XR chest 1V IMPRESSION: No acute cardiopulmonary process.
[2022-03-11 09:20] VITALS: BP 182/81; PULSE 96; RESP 17; TEMP 36.8; O2SAT 95; BMI 37.0
--- NOTE | 2022-03-11 09:24 | ED_ITS ---
HPI - SOB/Dyspnea General Chief Complaint: Upper Respiratory Symptoms Stated Complaint: covid + diff breathing cough Time Seen by Provider: 03/11/22 09:24 Source: patient Mode of arrival: ambulatory Limitations: no limitations History of Present Illness HPI Narrative: Patient history of COPD hypothyroidism, hypertension came here for increased cough since yesterday patient already been vaccinated against COVID including booster. Patient went to gathering her is positive with COVID multiple other family members positive for COVID comes here as increased cough and wheezing since yesterday fever Related Data Home Medications Medication Instructions Recorded Confirmed aspirin 81 mg tablet,delayed 81 mg PO DAILY 07/14/21 12/29/21 release (Adult Low Dose Aspirin) atorvastatin 40 mg tablet 40 mg PO DAILY 07/14/21 12/29/21 cholecalciferol (vitamin D3) 25 25 mcg PO DAILY 07/14/21 12/29/21 mcg (1,000 unit) capsule levothyroxine 88 mcg capsule 88 mcg PO DAILY 07/14/21 12/29/21 metoprolol succinate 50 mg 50 mg PO DAILY 07/14/21 12/29/21 tablet,extended release 24 hr Previous Rx's Medication Instructions Recorded codeine 10 mg-guaifenesin 100 mg/5 10 ml PO Q6H PRN cough #237 mL 03/11/22 mL oral liquid dexamethasone 6 mg tablet 6 mg PO DAILY #6 tabs 03/11/22 (Decadron) nirmatrelvir 300 mg (150 mg x See Rx Instructions PO .COMPLEX 03/11/22 2)-ritonavir 100 mg tablet (EUA) #30 tabs (Paxlovid 300 mg () Allergies Allergy/AdvReac Type Severity Reaction Status Date / Time Penicillins [PENICILLINS] Allergy Intermediate RASH Verified 12/29/21 11:25 [facility] Past Medical History Medical History (Updated 03/11/22 @ 11:20 by Terrence Salas MD) High cholesterol Hypothyroid Surgical History History of colonoscopy History of throat surgery History of tonsillectomy Family History Family History Mother Pacemaker Lung cancer Father Hypercholesteremia Paternal Aunt Liver cancer Brother Parkinsons disease Social History Social History Alcohol intake: current Alcohol intake frequency: holidays/special occasions only Patient Tobacco Use Status: Former Tobacco user Quit Date: 2015 Years Smoked: 40 +/- Advance Directives: No Advance Directives Information Provided: Yes Physical Exam Vital Signs: Vital Signs: Last Vital Signs Temp 98.3 F 03/11/22 11:32 Pulse 113 H 03/11/22 11:32 Resp 16 03/11/22 11:32 BP 131/92 H 03/11/22 11:32 Pulse Ox 95 03/11/22 11:32 O2 Del Method 03/11/22 11:32 BMI result Body Mass Index 37.0 MDM - SOB/Dyspnea MDM Narrative Medical decision making narrative: 11:15 Patient with COVID 19 chest x-ray negative for infiltrate saturating 94% at room air already been vaccinated including a booster dose will discharge her home on Decadron and Paxlovid Lab Data Attestation: I reviewed the patient's lab results. Result diagrams: 03/11/22 10:11 03/11/22 10:11 Labs: Lab Results 03/11/22 03/11/22 03/11/22 Range/Units 10:11 10:11 10:11 WBC 10.2 (4.8-10.8) X10*3/uL RBC 4.66 (4.20-5.50) X10*6/uL Hgb 14.5 (12.0-16.0) g/dl Hct 43.3 (37.0-47.0) % MCV 92.9 (80.0-98.0) fL MCH 31.1 (27.0-33.0) pg MCHC 33.5 (31.0-35.0) g/dl RDW 12.0 (11.0-16.0) % Plt Count 301 (160-400) X10*3/uL MPV 9.7 (9.4-12.3) fL Immature Gran % (Auto) 0.4 (0.0-0.4) % Neut % (Auto) 83.3 H (45-73) % Lymph % (Auto) 7.5 L (20-40) % Sterling % (Auto) 7.5 (2-11) % Eos % (Auto) 0.7 (0-4) % Baso % (Auto) 0.6 (0-2) % Lymph # (Auto) 0.8 L (1.2-4.9) X10*3/uL Sterling # (Auto) 0.8 (0.1-1.2) X10*3/uL Eos # (Auto) 0.1 (0.0-0.4) X10*3/uL Baso # (Auto) 0.1 (0.0-0.2) X10*3/uL Abs Immat Gran (auto) 0.04 H (0.00-0.03) X10*3/uL Absolute Neuts (auto) 8.5 H (2.0-8.3) x10*3/uL Absolute Nucleated RBC 0.000 (0.0-0.012) X10*3/uL Nucleated RBC % (auto) 0.0 (0.0-0.2) /100WBC D-Dimer High Sensitivty NG/ML Sodium 136 (135-145) mmol/L Potassium 4.6 (3.3-5.1) mmol/L Chloride 101 (96-108) mmol/L Carbon Dioxide 28 (22-29) mmol/L Anion Gap 12 (12-20) BUN 13 (9-16) mg/dL Creatinine 0.97 (0.5-1.4) mg/dL Estim Creat Clear Calc 54.7 Estimated GFR 57 Random Glucose 126 H (60-115) mg/dL Calcium 9.0 (8.4-10.2) mg/dL Total Bilirubin 0.8 (0.0-1.0) mg/dL AST 22 (5-31) U/L ALT 15 (0-31) U/L Alkaline Phosphatase 95 (39-117) U/L Total Protein 6.9 (6.5-8.0) g/dL Albumin 4.1 (3.5-5.0) g/dL COVID-19 ([facility]) Positive A (Negative) COVID-19 Clin Com See Note 03/11/22 Range/Units 10:11 WBC (4.8-10.8) X10*3/uL RBC (4.20-5.50) X10*6/uL Hgb (12.0-16.0) g/dl Hct (37.0-47.0) % MCV (80.0-98.0) fL MCH (27.0-33.0) pg MCHC (31.0-35.0) g/dl RDW (11.0-16.0) % Plt Count (160-400) X10*3/uL MPV (9.4-12.3) fL Immature Gran % (Auto) (0.0-0.4) % Neut % (Auto) (45-73) % Lymph % (Auto) (20-40) % Sterling % (Auto) (2-11) % Eos % (Auto) (0-4) % Baso % (Auto) (0-2) % Lymph # (Auto) (1.2-4.9) X10*3/uL Sterling # (Auto) (0.1-1.2) X10*3/uL Eos # (Auto) (0.0-0.4) X10*3/uL Baso # (Auto) (0.0-0.2) X10*3/uL Abs Immat Gran (auto) (0.00-0.03) X10*3/uL Absolute Neuts (auto) (2.0-8.3) x10*3/uL Absolute Nucleated RBC (0.0-0.012) X10*3/uL Nucleated RBC % (auto) (0.0-0.2) /100WBC D-Dimer High Sensitivty < 150 NG/ML Sodium (135-145) mmol/L Potassium (3.3-5.1) mmol/L Chloride (96-108) mmol/L Carbon Dioxide (22-29) mmol/L Anion Gap (12-20) BUN (9-16) mg/dL Creatinine (0.5-1.4) mg/dL Estim Creat Clear Calc Estimated GFR Random Glucose (60-115) mg/dL Calcium (8.4-10.2) mg/dL Total Bilirubin (0.0-1.0) mg/dL AST (5-31) U/L ALT (0-31) U/L Alkaline Phosphatase (39-117) U/L Total Protein (6.5-8.0) g/dL Albumin (3.5-5.0) g/dL COVID-19 ([facility]) (Negative) COVID-19 Clin Com Discharge Plan Discharge Clinical Impression: COVID-19 Patient Disposition: Home, Self-Care Instructions: COVID-19 (Coronavirus Disease 2019) (ED) Additional Instructions: Keep social distancing Take medication as prescribed Continue nebulizing treatment at home Report to the ER if increased shortness of breath Prescriptions: New dexamethasone [Decadron] 6 mg tablet 6 mg PO DAILY Qty: 6 0RF codeine-guaifenesin 10-100 mg/5 mL liquid 10 ml PO Q6H PRN (Reason: cough) Qty: 237 0RF Paxlovid (EUA) 150 mg x 2- 100 mg tablet See Rx Instructions .ROUTE .COMPLEX Qty: 30 0RF Rx Instructions: take TWO 150 mg tablets of nirmatrelvir with ONE 100 mg tablet of ritonavir twice daily for 5 days No Action atorvastatin 40 mg tablet 40 mg PO DAILY metoprolol succinate 50 mg tablet extended release 24 hr 50 mg PO DAILY levothyroxine 88 mcg capsule 88 mcg PO DAILY aspirin [Adult Low Dose Aspirin] 81 mg tablet,delayed release (DR/EC) 81 mg PO DAILY cholecalciferol (vitamin D3) 25 mcg (1,000 unit) capsule 25 mcg PO DAILY Interventions: ED Discharge Assessment Last Done: 03/11/22 11:36 Discharge Date/Time: 03/11/22 11:37
[2022-03-11] MEDS: Albuterol Sulfate 90 MCG 8 GM INHALER 4 PUFF INHALE (10:04)
[2022-03-11 10:05] VITALS: PULSE 94; RESP 18; O2SAT 95
[2022-03-11 10:18] LABS: MANUAL DIFF FLAG NO
[2022-03-11 10:20] LABS: Basophils Absolute Auto 0.1 X10*3/uL (0.0-0.2); Basophils Percent Auto 0.6 % (0-2); Eosinophils Absolute Auto 0.1 X10*3/uL (0.0-0.4); Eosinophils Percent Auto 0.7 % (0-4); Hematocrit 43.3 % (37.0-47.0); Hemoglobin 14.5 g/dl (12.0-16.0); Imm Gran Abs Auto 0.04 X10*3/uL (0.00-0.03); Imm Gran Pct Auto 0.4 % (0.0-0.4); Lymphocytes Absolute Auto 0.8 X10*3/uL (1.2-4.9); Lymphocytes Percent Auto 7.5 % (20-40); Mean Corpuscular HGB Conc 33.5 g/dl (31.0-35.0); Mean Corpuscular Hemoglobin 31.1 pg (27.0-33.0); Mean Corpuscular Volume 92.9 fL (80.0-98.0); Mean Platelet Volume 9.7 fL (9.4-12.3); Monocytes Absolute Auto 0.8 X10*3/uL (0.1-1.2); Monocytes Percent Auto 7.5 % (2-11); Neutrophils Absolute Auto 8.5 x10*3/uL (2.0-8.3); Neutrophils Percent Auto 83.3 % (45-73); Platelet Count 301 X10*3/uL (160-400); Red Blood Count 4.66 X10*6/uL (4.20-5.50); White Blood Count 10.2 X10*3/uL (4.8-10.8)
[2022-03-11 10:34] LABS: COVID-19 Test Positive (Negative); IDNOW Serial# 9DB6401D
[2022-03-11 10:41] LABS: D Dimer High Sensitivity < 150 NG/ML
[2022-03-11 10:44] LABS: Alanine Aminotransferase 15 U/L (0-31); Albumin Level 4.1 g/dL (3.5-5.0); Alkaline Phosphatase 95 U/L (39-117); Anion Gap 12 (12-20); Aspartate Amino Transferase 22 U/L (5-31); Bilirubin Total 0.8 mg/dL (0.0-1.0); Blood Urea Nitrogen 13 mg/dL (9-16); Carbon Dioxide 28 mmol/L (22-29); Chloride 101 mmol/L (96-108); Creatinine Clr Calc Pharmacy 54.7; Estimated Glomerular Filt Rate 57; Glucose Random 126 mg/dL (60-115); Potassium 4.6 mmol/L (3.3-5.1); Sodium 136 mmol/L (135-145); Total Protein 6.9 g/dL (6.5-8.0)
[2022-03-11] MEDS: guaiFEN/Codeine SF 200/20/10ML 10 ML LIQUID PO (10:49)
[2022-03-11] MEDS: dexAMETHasone 6 MG TABLET PO (10:49)
--- NOTE | 2022-03-11 10:52 | PC.NURSE ---
PATIENT A/OX4. IGOR . HEART BEAT REGULAR AT 99 BEATS LUNGS MILD DIMINISHED , EXPIRATORY WHEEZES NOTED . DRY NON PRODUCTIVE COUGH . ALBUTERAL TREATMENT PROVIDED BY RT. SKIN PINK WARM AND DRY . ABDOMEN SOFT AND NON DISTENDED . POSITIVE BOWEL SOUNDS IN ALL FOUR QUADRANTS . PATIENT AWARE OF PLAN OF CARE .
[2022-03-11 11:32] VITALS: BP 131/92; PULSE 113; RESP 16; TEMP 36.8; O2SAT 95
== END 2022-03-11 11:37 | disposition home or self-care (01) ==
PROVIDERS: Emergency Provider Internal Medicine; PCP Internal Medicine
DX: U07.1 COVID-19 (principal); R06.2 Wheezing; Z87.891 Personal history of nicotine dependence
CPT/HCPCS: 36415; 71045; 80053; 85025; 85379; 87635; 94640; 99284; J8540

== ENCOUNTER 2022-05-07 08:48 | Outpatient (REF) | payer MEDICARE, OTHER, SELFPAY ==
--- NOTE | ~2022-05-07 | MM_ITS ---
EXAMINATION: MM SCREENING DIGITAL BREAST TOMOSYNTHESIS, BILATERAL CLINICAL INFORMATION: Screening. Asymptomatic. The lifetime risk of breast cancer based on the Tyrer-Cuzick Model is 3%. COMPARISON: Mammography: 05/05/2021, 04/29/2020, 04/24/2019 TECHNIQUE: Digital breast tomosynthesis is performed in both the craniocaudal and mediolateral oblique views along with computer-aided detection (CAD). Synthesized 2D images are generated from the tomosynthesis. FINDINGS: The breasts are heterogeneously dense, which may obscure small masses (ACR BI-RADS breast composition Category c). There are no significant masses, abnormal calcifications, or other abnormalities. Parenchymal pattern is similar to prior studies. The axilla and skin contours are unremarkable. MM/MM tomosynthesis screening BI IMPRESSION: No mammographic evidence of malignancy. ASSESSMENT: BI-RADS 1: Negative RECOMMENDATION: Routine annual mammography screening. This patient's information was entered into a reminder system with a target due date for their next mammogram.
== END 2022-05-07 08:49 | disposition home or self-care (01) ==
LOC: HO.MAMMO 08:48
PROVIDERS: PCP Internal Medicine; Visit Provider Internal Medicine
DX: Z12.31 Encounter for screening mammogram for malignant neoplasm of breast (principal)
CPT/HCPCS: 77063; 77067

== ENCOUNTER 2022-05-26 07:52 | Outpatient (REF) | payer MEDICARE, OTHER, SELFPAY ==
[2022-05-26 09:06] LABS: Alanine Aminotransferase 13 U/L (0-31); Albumin Level 3.8 g/dL (3.5-5.0); Alkaline Phosphatase 83 U/L (39-117); Aspartate Amino Transferase 18 U/L (5-31); Bilirubin Direct 0.2 mg/dL (0.0-0.5); Bilirubin Total 0.6 mg/dL (0.0-1.0); Cholesterol 156 mg/dL; HDL Cholesterol 59 mg/dL; LDL Cholesterol Calculated 81 mg/dl; Total Protein 6.4 g/dL (6.5-8.0); Triglycerides 82 mg/dL
[2022-05-26 09:29] LABS: TSH reflex Free T4 2.68 uIU/mL (0.32-4.0)
[2022-05-26 11:44] LABS: Reflex LDLD? No
== END 2022-05-26 07:53 | disposition home or self-care (01) ==
LOC: HO.LAB 07:52
PROVIDERS: PCP Internal Medicine; Visit Provider Internal Medicine
DX: E78.00 Pure hypercholesterolemia, unspecified (principal); E03.9 Hypothyroidism, unspecified
CPT/HCPCS: 36415; 80061; 80076; 84443

== ENCOUNTER 2023-01-04 10:54 | Outpatient (REF) | payer MEDICARE, OTHER, SELFPAY ==
[2023-01-04 11:29] LABS: MANUAL DIFF FLAG NO
[2023-01-04 12:43] LABS: Basophils Absolute Auto 0.1 X10*3/uL (0.0-0.2); Eosinophils Absolute Auto 0.3 X10*3/uL (0.0-0.4); Eosinophils Percent Auto 3.6 % (0-4); Hematocrit 45.7 % (37.0-47.0); Imm Gran Abs Auto 0.03 X10*3/uL (0.00-0.03); Imm Gran Pct Auto 0.3 % (0.0-0.4); Lymphocytes Percent Auto 33.7 % (20-40); Mean Corpuscular HGB Conc 32.8 g/dl (31.0-35.0); Mean Corpuscular Hemoglobin 31.1 pg (27.0-33.0); Mean Corpuscular Volume 94.6 fL (80.0-98.0); Mean Platelet Volume 10.1 fL (9.4-12.3); Monocytes Absolute Auto 0.8 X10*3/uL (0.1-1.2); Monocytes Percent Auto 8.8 % (2-11); Neutrophils Absolute Auto 4.7 x10*3/uL (2.0-8.3); Neutrophils Percent Auto 52.6 % (45-73); Platelet Count 296 X10*3/uL (160-400); Red Blood Count 4.83 X10*6/uL (4.20-5.50); Red Cell Distribution Width 12.3 % (11.0-16.0); White Blood Count 8.9 X10*3/uL (4.8-10.8)
[2023-01-04 12:49] LABS: Appearance Urine Clear; Color Urine Yellow; Glucose Urine UA Negative (Negative); Leukocyte Esterase Urine Negative (Negative); Nitrite Urine Negative (Negative); PH 6.5 (5.0-9.0); Urine Blood Negative (Negative); Urine Ketones Negative (Negative); Urine Protein Negative (Neg-Trace)
[2023-01-04 12:57] LABS: Bacteria Urine None Seen (None Seen); Hyaline Casts Urine 0-2 /LPF (0-2); RBC Urine 0-2 /HPF (0-2); Squamous Epithelial Cell Urine 0-2 /HPF (0-2); WBC Urine 0-5 /HPF (0-5)
[2023-01-04 13:36] LABS: Alanine Aminotransferase 12 U/L (0-31); Albumin Level 3.7 g/dL (3.5-5.0); Alkaline Phosphatase 86 U/L (39-117); Anion Gap 13 (12-20); Aspartate Amino Transferase 17 U/L (5-31); Bilirubin Total 0.7 mg/dL (0.0-1.0); Blood Urea Nitrogen 15 mg/dL (9-16); Calcium 8.9 mg/dL (8.4-10.2); Carbon Dioxide 29 mmol/L (22-29); Chloride 104 mmol/L (96-108); Cholesterol 153 mg/dL; Estimated Glomerular Filt Rate > 60; Glucose Fasting 99 mg/dL (60-99); HDL Cholesterol 58 mg/dL; LDL Cholesterol Calculated 77 mg/dl; Potassium 4.4 mmol/L (3.3-5.1); Sodium 142 mmol/L (135-145); Total Protein 6.2 g/dL (6.5-8.0); Triglycerides 91 mg/dL
[2023-01-04 13:40] LABS: TSH reflex Free T4 3.44 uIU/mL (0.32-4.0); Vitamin D 25-OH Total 58.4 ng/mL (>30)
== END 2023-01-04 10:55 | disposition home or self-care (01) ==
LOC: HO.LNP 10:54
PROVIDERS: Visit Provider Internal Medicine
DX: Z13.89 Encounter for screening for other disorder (principal)
CPT/HCPCS: 80053; 80061; 81001; 82306; 84443; 85025

== ENCOUNTER 2023-04-19 12:41 | Outpatient (AMB) | payer MEDICARE, OTHER, SELFPAY ==
--- NOTE | 2023-04-19 12:46 | A.OFFVIS_ITS ---
Intake Vital Signs 04/19/23 12:47 Height 5 ft 1 in Weight 200 lb 9.93 oz BMI 37.9 BP 120/64 Blood Pressure Location Lt brachial Position Sitting Pulse 72 Intake Visit Reasons: 1 year fu (switch from ) Intake Note: 1 year follow-up with ekg feeling good Nurse Anesthesia Program Director Required: No Travel Information Center Supervisor: Travel Information Center Supervisor Present Accompanied by: Spouse Allergies Penicillins [PENICILLINS] Allergy (Intermediate, Verified 12/29/21 11:25) RASH Medication List - Last Reconciled 04/19/23 by Nathan Ingram MD aspirin (Adult Low Dose Aspirin) 81 mg PO DAILY atorvastatin 40 mg PO DAILY cholecalciferol (vitamin D3) 25 mcg PO DAILY levothyroxine 88 mcg PO DAILY metoprolol succinate ER 50 mg PO DAILY HPI HPI Comments History of Present Illness Details Lily comes for follow-up of her palpitations. She still intermittently gets symptoms of palpitation does have sporadic and random. There is no clear triggering events. Denies any lightheadedness, syncope. No exertional chest pain or shortness of breath. Currently not exercising on a re gular basis as she is taking care of her . [facility] Medical History High cholesterol Hypothyroid Surgical History History of colonoscopy History of throat surgery History of tonsillectomy Family History Mother Pacemaker Lung cancer Father Hypercholesteremia Paternal Aunt Liver cancer Brother Parkinsons disease Social History Alcohol intake: current Alcohol intake frequency: holidays/special occasions only Patient Tobacco Use Status: Former Tobacco user Quit Date: 2015 Years Smoked: 40 +/- Review of Systems Const Denies chills, Denies fatigue, Denies fever(s), Denies frequent falls, Denies weakness, Denies weight gain and Denies weight loss ENT Denies dizziness Card Denies chest pain, Denies leg edema, Denies lightheadedness, Denies palpitations, Denies dyspnea, Denies dyspnea on exertion, Denies orthopnea and Denies other (loss of consciousness) Resp Denies cough, Denies dyspnea and Denies dyspnea on exertion GI Denies hematochezia and Denies change in stool character Musc Denies abnormal gait, Denies muscle weakness, Denies numbness, Denies radiating pain into limb and Denies tingling Neuro Denies abnormal gait, Denies dizziness, Denies frequent falls, Denies numbness, Denies tingling and Denies weakness Endo Denies fatigue and Denies palpitations Physical Exam Vital Signs: Last Vital Signs Pulse 72 04/19/23 12:47 BP 120/64 04/19/23 12:47 BMI result Body Mass Index 37.9 GENERAL APPEARANCE: in no acute distress, pleasant. NECK: no carotid bruit, no jugular venous distention. SKIN: no suspicious lesions, warm and dry. HEART: no murmurs, regular rate and rhythm. LUNGS: clear to auscultation bilaterally. ABDOMEN: soft, nontender. EXTREMITIES: no edema. PERIPHERAL PULSES: equal. NEUROLOGIC: No gross deficits, AAO X 3 Office Procedures EKG Details: EKG shows normal sinus rhythm with right bundle-branch block 37099-[id number], Complete Assessment & Plan Assessment & Plan (1) PVCs (premature ventricular contractions): Code(s): I49.3 - Ventricular premature depolarization Plan: Patient with strong symptoms of palpitation the past much improved with metoprolol therapy. These are most likely related to isolated PVCs which she continues to get milder symptoms which are sporadic and random. This does not affect the quality of life. Continue metoprolol therapy as this has improved her quality of life significantly. Continue heart healthy lifestyle. Blood pressure is well optimized. Advise increase activity level. Target goal LDL less than 70 mg/dL. Will follow up in the clinic in couple years. Thank you for allowing me to partake in the care Coding Level of Care Code Est Pt Level 3 (90326) Diagnoses PVCs (premature ventricular contractions) I49.3 CPT Codes EKG - CPT: 67168-[id number], Complete ([id number])
[2023-04-19 12:47] VITALS: BP 120/64; PULSE 72; BMI 37.9
== END 2023-04-19 14:23 | disposition home or self-care (01) ==
PROVIDERS: PCP Internal Medicine; Referring Provider Internal Medicine; Visit Provider Internal Medicine Cardiovascular Disease
DX: I49.3 Ventricular premature depolarization (principal)
CPT/HCPCS: 93010; 99213

== ENCOUNTER → 2023-04-19 12:41 | Outpatient (BNVA) | payer MEDICARE, OTHER, SELFPAY | PROVIDERS: PCP Internal Medicine; Referring Provider Internal Medicine; Visit Provider Internal Medicine Cardiovascular Disease | DX: I45.10 Unspecified right bundle-branch block (principal); I49.3 Ventricular premature depolarization | CPT/HCPCS: 93005; 99212 ==

== ENCOUNTER 2023-05-19 09:45 | Outpatient (REF) | payer MEDICARE, OTHER, SELFPAY | END 2023-05-19 09:46 | disposition home or self-care (01) | LOC: HO.MAMMO 09:45 | PROVIDERS: PCP Internal Medicine; Visit Provider Internal Medicine | DX: Z12.31 Encounter for screening mammogram for malignant neoplasm of breast (principal) | CPT/HCPCS: 77063; 77067 ==

== ENCOUNTER → 2023-05-19 10:00 | Outpatient (BNV) | payer MEDICARE, OTHER, SELFPAY | PROVIDERS: PCP Internal Medicine; Visit Provider Radiology Diagnostic Radiology | DX: Z12.31 Encounter for screening mammogram for malignant neoplasm of breast (principal) | CPT/HCPCS: 77063; 77067 ==

== ENCOUNTER 2023-07-23 10:39 | Outpatient (REF) | payer MEDICARE, OTHER, SELFPAY ==
[2023-07-23 11:47] LABS: Cholesterol 168 mg/dL (<200); HDL Cholesterol 64 mg/dL (>40); LDL Cholesterol Calculated 91 mg/dL (<100); Triglycerides 67 mg/dL (<150)
[2023-07-23 11:57] LABS: Alanine Aminotransferase 14 U/L (0-31); Albumin Level 3.5 g/dL (3.5-5.0); Alkaline Phosphatase 77 U/L (39-117); Aspartate Amino Transferase 18 U/L (5-31); Bilirubin Direct 0.3 mg/dL (0.0-0.5); Bilirubin Total 0.7 mg/dL (0.0-1.0); Total Protein 6.5 g/dL (6.5-8.0)
[2023-07-23 13:53] LABS: Reflex LDLD? No
== END 2023-07-23 10:40 | disposition home or self-care (01) ==
LOC: HO.LNP 10:39
PROVIDERS: Visit Provider Internal Medicine
DX: E78.00 Pure hypercholesterolemia, unspecified (principal)
CPT/HCPCS: 80061; 80076

== ENCOUNTER 2024-01-10 10:33 | Outpatient (REF) | payer MEDICARE, OTHER, SELFPAY ==
[2024-01-10 10:42] LABS: MANUAL DIFF FLAG NO
[2024-01-10 11:23] LABS: Basophils Absolute Auto 0.1 X10*3/uL (0.0-0.2); Eosinophils Absolute Auto 0.4 X10*3/uL (0.0-0.4); Eosinophils Percent Auto 5.1 % (0-4); Hematocrit 46.2 % (37.0-47.0); Hemoglobin 14.8 g/dl (12.0-16.0); Imm Gran Abs Auto 0.03 X10*3/uL (0.00-0.03); Imm Gran Pct Auto 0.4 % (0.0-0.4); Lymphocytes Absolute Auto 2.7 X10*3/uL (1.2-4.9); Lymphocytes Percent Auto 33.1 % (20-40); Mean Corpuscular Hemoglobin 30.8 pg (27.0-33.0); Mean Corpuscular Volume 96.3 fL (80.0-98.0); Mean Platelet Volume 10.5 fL (9.4-12.3); Monocytes Absolute Auto 0.8 X10*3/uL (0.1-1.2); Monocytes Percent Auto 9.6 % (2-11); Neutrophils Absolute Auto 4.2 x10*3/uL (2.0-8.3); Neutrophils Percent Auto 50.8 % (45-73); Platelet Count 310 X10*3/uL (160-400); Red Cell Distribution Width 12.1 % (11.0-16.0); White Blood Count 8.2 X10*3/uL (4.8-10.8)
[2024-01-10 11:28] LABS: Appearance Urine Clear; Color Urine Yellow; Glucose Urine UA Negative (Negative); Leukocyte Esterase Urine Trace (Negative); Nitrite Urine Negative (Negative); PH 6.5 (5.0-9.0); Specific Gravity - Urine 1.015 (1.005-1.025); UMIC TRIGGER UACC YES; Urine Blood Negative (Negative); Urine Ketones Negative (Negative); Urine Protein Negative (Neg-Trace)
[2024-01-10 11:35] LABS: Alanine Aminotransferase 15 U/L (0-31); Albumin Level 3.8 g/dL (3.5-5.0); Alkaline Phosphatase 89 U/L (39-117); Anion Gap 13 (12-20); Aspartate Amino Transferase 18 U/L (5-31); Bilirubin Total 0.4 mg/dL (0.0-1.0); Blood Urea Nitrogen 21 mg/dL (9-16); Calcium 9.4 mg/dL (8.4-10.2); Carbon Dioxide 29 mmol/L (22-29); Chloride 104 mmol/L (96-108); Cholesterol 153 mg/dL (<200); Estimated Glomerular Filt Rate > 60; Glucose Random 105 mg/dL (60-115); HDL Cholesterol 63 mg/dL (>40); LDL Cholesterol Calculated 77 mg/dL (<100); Potassium 4.6 mmol/L (3.3-5.1); Sodium 141 mmol/L (135-145); Total Protein 6.8 g/dL (6.5-8.0); Triglycerides 69 mg/dL (<150)
[2024-01-10 11:54] LABS: TSH reflex Free T4 2.75 uIU/mL (0.32-4.0); Vitamin D 25-OH Total 40.8 ng/mL (>30)
[2024-01-10 12:03] LABS: Bacteria Urine None Seen (None Seen); Hyaline Casts Urine 0-2 /LPF (0-2); RBC Urine 0-2 /HPF (0-2); Squamous Epithelial Cell Urine 0-2 /HPF (0-2); WBC Urine 0-5 /HPF (0-5)
== END 2024-01-10 10:34 | disposition home or self-care (01) ==
LOC: HO.LNP 10:33
PROVIDERS: Visit Provider Internal Medicine
DX: I10 Essential (primary) hypertension (principal); E78.00 Pure hypercholesterolemia, unspecified; E55.9 Vitamin D deficiency, unspecified; E03.9 Hypothyroidism, unspecified
CPT/HCPCS: 80053; 80061; 81001; 82306; 84443; 85025

== ENCOUNTER 2024-02-24 08:30 | Outpatient (REF) | payer MEDICARE, OTHER, SELFPAY ==
--- NOTE | ~2024-02-24 | MM_ITS ---
EXAMINATION: BONE DENSITOMETRY CLINICAL INDICATION: Other specified disorders of bone density and structure, right thigh. COMPARISON: Previous BD dated 12/17/2020 and baseline BD dated 11/16/2017. TECHNIQUE: Using a [employer] DXA System (software version: 13.1) manufactured by [employer], dual-energy x-ray absorptiometry was performed of the lumbar spine and left hip. The images are of good technical quality. Summary results are attached. FINDINGS: AP SPINE L2-L4 (L3) (excluding L1 and L3): The data of L1-L4 has been changed to exclude the L1 and L3 vertebral bodies, because degenerative sclerosis at these levels may cause overestimation of lumbar spine density. Current: BMD 0.998 g/cm2, Z-score -0.7, T-score -1.7, osteopenia, 5.8% increase from previous, 4.2% increase from baseline (<5% change is not significant). Prior: BMD 0.943 g/cm2. Baseline: BMD 0.958 g/cm2. LEFT FEMUR, NECK: Current: BMD 0.764 g/cm2, Z-score -0.7, T-score -2.0, osteopenia. Prior: BMD 0.765 g/cm2. Baseline: BMD 0.826 g/cm2. LEFT FEMUR, TOTAL: Current: BMD 0.826 g/cm2, Z-score -0.4, T-score -1.4, osteopenia, 2.8% decrease from previous, 7.1% decrease from baseline (<5% change is not significant). Prior: BMD 0.850 g/cm2. Baseline: BMD 0.889 g/cm2. IDENTIFIED RISK FACTORS: Height loss. Secondary osteoporosis (early menopause). HISTORY OF FRACTURE: None listed. MEDICATIONS: Vitamin D. MM/XR DEXA axial skeleton IMPRESSION: 1. DIAGNOSIS: Osteopenia based on the lowest T-score value of -2.0 in the femoral neck applying World Health Organization criteria. 2. 10-YEAR FRACTURE RISK PREDICTION, FRAX: Major osteoporotic fracture (clinical spine, forearm, hip or shoulder) 11.6%. Hip fracture 2.5%. 3. Treatment Recommendations: NOF guidelines recommend consideration for treatment in postmenopausal women and men age 50 and older presenting with the following: -A hip or vertebral (clinical or morphometric) fracture. -T-score less than or equal to -2.5 at the femoral neck or spine after appropriate evaluation to exclude secondary causes. -Low bone mass at the hip or spine and a 10-year fracture probability by FRAX of greater than or equal to 3% for hip fracture or greater than or equal to 20% for major osteoporotic fracture based on the [place] adapted WHO algorithm. 4. Other Recommendations: All treatment decisions require clinical judgment and consideration of individual patient factors, including patient preferences, comorbidities, previous drug use, risk factors not captured in the FRAX model (e.g. frailty, falls, vitamin D deficiency, increased bone turnover, interval significant decline in bone density) and possible under or overestimation of fracture risk by FRAX. Additional medical evaluation for secondary cause of low bone mineral density may be appropriate. FUTURE SCAN RECOMMENDATION: People with diagnosed cases of osteoporosis or at high risk for fracture should have regular bone mineral density tests. For patients eligible for Medicare, routine testing is allowed once every 2 years. The testing frequency can be increased to one year for patients who have rapidly progressing disease, those who are receiving or discontinuing medical therapy to restore bone mass, or have additional risk factors.
== END 2024-02-24 08:31 | disposition home or self-care (01) ==
LOC: HO.MAMMO 08:30
PROVIDERS: PCP Internal Medicine; Visit Provider Internal Medicine
DX: Z13.820 Encounter for screening for osteoporosis (principal); Z78.0 Asymptomatic menopausal state; M85.851 Other specified disorders of bone density and structure, right thigh
CPT/HCPCS: 77080

== ENCOUNTER 2024-05-22 09:49 | Outpatient (REF) | payer MEDICARE, OTHER, SELFPAY ==
--- NOTE | ~2024-05-22 | MM_ITS ---
EXAMINATION: MM SCREENING DIGITAL BREAST TOMOSYNTHESIS, BILATERAL CLINICAL INFORMATION: Screening. Asymptomatic. COMPARISON: Mammography: Comparison is made with available priors TECHNIQUE: Digital breast mammography with tomosynthesis is performed in both the craniocaudal and mediolateral oblique views along with computer-aided detection (CAD). FINDINGS: The breasts are heterogeneously dense, which may obscure small masses (ACR BI-RADS breast composition Category c). There are no significant masses, abnormal calcifications, or other abnormalities. MM/MM tomosynthesis screening BI IMPRESSION: No mammographic evidence of malignancy. ASSESSMENT: BI-RADS BI-RADS 1 - Negative RECOMMENDATION: Routine annual mammography screening. 1 year F/U This examination should not preclude the clinical evaluation of a suspicious palpable abnormality. This patient's information was entered into a reminder system with a target due date for their next mammogram. Electronically signed by: Danielle Tanner DO 06/02/2024 10:02 AM [facility]
== END 2024-05-22 09:50 | disposition home or self-care (01) ==
LOC: HO.MAMMO 09:49
PROVIDERS: PCP Internal Medicine; Visit Provider Internal Medicine
DX: Z12.31 Encounter for screening mammogram for malignant neoplasm of breast (principal)
CPT/HCPCS: 77063; 77067

== ENCOUNTER → 2024-05-22 10:00 | Outpatient (BNV) | payer MEDICARE, OTHER, SELFPAY | PROVIDERS: PCP Internal Medicine; Visit Provider Internal Medicine | DX: Z12.31 Encounter for screening mammogram for malignant neoplasm of breast (principal) | CPT/HCPCS: 77063; 77067 ==

== ENCOUNTER 2024-07-20 13:25 | Outpatient (REF) | payer MEDICARE, OTHER, SELFPAY ==
[2024-07-20 15:55] LABS: Alanine Aminotransferase 16 U/L (0-31); Albumin Level 3.9 g/dL (3.5-5.0); Alkaline Phosphatase 82 U/L (39-117); Aspartate Amino Transferase 26 U/L (5-31); Bilirubin Direct 0.2 mg/dL (0.0-0.5); Bilirubin Total 0.6 mg/dL (0.0-1.0); Cholesterol 159 mg/dL (<200); HDL Cholesterol 67 mg/dL (>40); LDL Cholesterol Calculated 80 mg/dL (<100); Total Protein 6.8 g/dL (6.5-8.0); Triglycerides 61 mg/dL (<150)
[2024-07-20 16:16] LABS: TSH reflex Free T4 0.73 uIU/mL (0.32-4.0)
== END 2024-07-20 13:26 | disposition home or self-care (01) ==
LOC: HO.LNP 13:25
PROVIDERS: Visit Provider Internal Medicine
DX: J43.1 Panlobular emphysema (principal); E03.9 Hypothyroidism, unspecified; E78.00 Pure hypercholesterolemia, unspecified
CPT/HCPCS: 80061; 80076; 84443

== ENCOUNTER 2024-12-14 10:59 | Outpatient (AMB) | payer MEDICARE, OTHER, SELFPAY ==
[2024-12-14 11:03] VITALS: BP 120/80; PULSE 84; BMI 38.7
--- NOTE | 2024-12-14 11:03 | MHC.OFFVIS ---
Vital Signs 12/14/24 11:03 Height 5 ft 1 in Weight 205 lb 0.478 oz BMI 38.7 BP 120/80 Blood Pressure Location Lt brachial Position Sitting Pulse 84 Intake Visit Reasons: 1 Year Follow up - Over due Intake Note: 1 year follow-up with ekg feeling good Insect Control Inspector Required: No Allergies Penicillins [PENICILLINS] Allergy (Intermediate, Verified 12/29/21 11:25) RASH Medication List - Last Reconciled 12/14/24 by Nathan Ingram MD aspirin (Adult Low Dose Aspirin) 81 mg PO DAILY atorvastatin 40 mg PO DAILY cholecalciferol (vitamin D3) 25 mcg PO DAILY levothyroxine 88 mcg PO DAILY metoprolol succinate ER 50 mg PO DAILY HPI Comments Details: Lily comes for follow-up. Overall she has been doing very well from cardiac perspective. She has started exercising recently and been doing bike for 45 minutes and also some core exercises. With that she has been feeling better. She was no exertional chest pain or shortness of breath. Denies any prolonged palpitation irregular heartbeat. Her PVC symptoms also have significantly improved. No lightheadedness, syncope. Takes all her medications. Her LDL is optimized for her risk. [facility] Medical History (Updated 12/14/24 @ 11:24 by Nathan Ingram MD) Hypothyroid High cholesterol Surgical History History of colonoscopy History of tonsillectomy History of throat surgery Family History Mother Pacemaker Lung cancer Father Hypercholesteremia Paternal Aunt Liver cancer Brother Parkinsons disease Social History Alcohol intake: current Alcohol intake frequency: holidays/special occasions only Patient Tobacco Use Status: Former Tobacco user Years Smoked: 40 +/- Review of Systems Const Denies chills, Denies fatigue, Denies fever(s), Denies frequent falls, Denies weakness, Denies weight gain and Denies weight loss ENT Denies dizziness Card Denies chest pain, Denies leg edema, Denies lightheadedness, Denies palpitations, Denies dyspnea, Denies dyspnea on exertion, Denies orthopnea and Denies other (loss of consciousness) Resp Denies cough, Denies dyspnea and Denies dyspnea on exertion GI Denies hematochezia and Denies change in stool character Musc Denies abnormal gait, Denies muscle weakness, Denies numbness, Denies radiating pain into limb and Denies tingling Neuro Denies abnormal gait, Denies dizziness, Denies frequent falls, Denies numbness, Denies tingling and Denies weakness Endo Denies fatigue and Denies palpitations Physical Exam Vital Signs: Last Vital Signs Pulse 84 12/14/24 11:03 BP 120/80 12/14/24 11:03 BMI result Body Mass Index 38.7 Const General: cooperative, comfortable, no acute distress, alert, awake and well groomed Nutritional Appearance: obese Orientation/consciousness: patient oriented x3 Neck Neck: Yes trachea midline, Yes supple and Yes no JVD Cardio Jugular venous distension: no JVD Rate: regular rate Rhythm: regular rhythm Heart sounds: S1 normal heart sound present, S2 normal heart sound present, no click, no gallops and no murmurs GI Auscultation: normal bowel sounds Neuro General: patient oriented x3 and no focal motor deficits Extrem General: Yes no clubbing, cyanosis or edema Office Procedures EKG Details: EKG shows normal sinus rhythm with right bundle-branch block at 84 beats per minute [id number], Complete Assessment & Plan Assessment & Plan (1) PVCs (premature ventricular contractions): Code(s): I49.3 - Ventricular premature depolarization Category: Medical Plan: In the past frequent PVCs but symptoms have significantly improved on metoprolol therapy. She has had no recurrent significant symptoms at this point time metoprolol therapy. Continue the same. Goals of therapy were discussed. Avoidance of stimulants was discussed. Stress mitigation strategies were discussed. Encouraged to continue to participate in physical activity as tolerated. (2) High cholesterol: Code(s): E78.00 - Pure hypercholesterolemia, unspecified Category: Medical Plan: Hyperlipidemia currently on high-intensity statin therapy. LDL is well optimized for her risk factors. Continue the same. Advised to call me with any exertional symptoms. Encouraged to continue to participate in aggressive lifestyle modification with aggressive weight loss program. Will follow up in the clinic in 2 years time, sooner p.r.n.. Thank you for allowing me to partake in her care Coding Level of Care Code Est Pt Level 4 (94847) Complex EM visit Add On G2211 Diagnoses PVCs (premature ventricular contractions) I49.3 High cholesterol E78.00 CPT Codes EKG - CPT: 25514-Yxjhqikbfdgtsoksr, Complete ([id number])
--- OUTSIDE RECORDS SUMMARY | 2024-12-14 13:13 | XMS_ITS ---
Author Organization Andrew Waldrop MD Address [address] [facility] [address] [place] [phone] Care Team Providers Care Inspector Automatic Typewriter Name Role Phone Anderw Waldrop Primary Care Provider [phone] REASON FOR VISIT Lab results Encounters Encounter Location Date Provider Diagnosis Andrew Waldrop MD [address] [facility] [address] [place] [phone] 07/21/2024 Andrew Waldrop Plan Of Treatment Next Appt Details Provider Name:Andrew dia, 01/12/2025 08:00:00 AM, [address] [place] [address], [address], [phone], Provider Name:Andrew dia, 01/19/2025 10:00:00 AM, [address] [place] [address], [address], [phone], Progress Notes * Mora TOWNSENDOB:1950 ([age] yo F)Acc No.[id number]:07/21/2024 Patient:?Lily Townsend :1950???Age:74 Y???Sex:Female Address:[place] [address] * true * Date:? Generated for Printi basil/Fagatitog/eTransmitting on:?12/14/2024 01:13 PM EDT
--- OUTSIDE RECORDS SUMMARY | 2024-12-14 13:14 | XMS_ITS ---
Author Organization Andrew Waldrop MD Address [address] [place], [place] [phone] Care Team Providers Care Java Integration Developer Name Role Phone Andrew Waldrop Primary Care Provider [phone] Allergies Allergen (clinical drug ingredient) Drug/Non Drug Allergy documented on EMR Reaction Allergy Type Onset Date Status penicillin G Penicillin G Potassium rash Drug Allergy Active Results Component Value Reference Range Notes Liver Panel Reviewed date:07/20/2024 05:36:54 PM Interpretation: Performing Lab:[facility], [address] [place] [phone] Notes/Report: Bilirubin Total 0.6 0.0-1.0 mg/dL Bilirubin Direct 0.2 0.0-0.5 mg/dL Aspartate Amino Transferase 26 5-31 U/L Alanine Aminotransferase 16 0-31 U/L Total Protein 6.8 6.5-8.0 g/dL Albumin Level 3.9 3.5-5.0 g/dL Alkaline Phosphatase 82 39-117 U/L Lipid Panel Reviewed date:07/20/2024 05:36:26 PM Interpretation: Performing Lab:[facility], [address] [place] [phone] Notes/Report: Triglycerides 61 <150 mg/dL Desirable Triglyceride: [...] T4 Reviewed date:07/20/2024 05:36:18 PM Interpretation: Performing Lab:[facility], [address] [place] [phone] Notes/Report: TSH reflex Free T4 0.73 0.32-4.0 [...] Date Provider Diagnosis Andrew Waldrop MD [address] [place], [place] [phone] 07/20/2024 Andrew Waldrop Panlobular emphysema J43.1 ; [...] 6 Months, Reason: comp Provider Name:Andrew dia, 01/12/2025 08:00:00 AM, [address] [place] [address], [address], [phone], Provider Name:Andrew dia, 01/19/2025 10:00:00 AM, [address] [place] [address], [place] [address], [place], [place], [phone], Progress Notes * Mroa TOWNSENDOB:1950 ([age] yo F)Acc No.[id number]:07/20/2024 Progress Notes Patient:?Lily Townsend Provider:?Andrew Waldrop MD :1950???Age:74 Y???Sex:Female D ate:07/20/2024 Address:[id number] Subjective: * Chief Complaints: * ???6 MO F/U * HPI: ???Symptom(s):? patient is a 74 yo female here for 6 month follow up visit, still going to gym 4 times per week. * ROS:?General/Constitutional:?Denies?Chills.?Denies?Fatigue.?Denies?Fever.?Denies?Headache.?ENT:?Patient denies?decreased sense of smell , any loss of taste , sore throat.?Denies?Sore throat.?Respiratory:?Denies?Cough.?Denies?Shortness of breath at rest.?Denies?Shortness of breath with exertion.?Gastrointestinal:?Denies?Diarrhea.?Denies?Nausea.?Musculoskeletal:?Patient denies?muscle aches.?Peripheral Vascular:?Patient denies?red and blue toes.? * Medical History:? * Surgical History:? * Hospitalization/Major Diagno stic Procedure:? * Medications:?TakingAspirin 8 1 MG Tablet Delayed Release 1 tablet Orally [...] reviewed and reconciled with the patient * Allergies:?Penicillin G Pota ssium: mariana[Allergies Verified] Objective: * Vitals:?Ht: 60, Wt:203, BMI: 39.64, BP:132/94. * Examination: ???General Examination: ?GENERAL APPEARANCE:?alert, well hydrated, in no distress.?HEAD:?normocephalic.?HEART:?no murmurs, rubs, gallops , regular rate and rhythm.?LUNGS:?no wheezes, rales, rhonchi , good air movement , clear to auscultation bilaterally.? Assessment: * Assessment: 1.?Panlobular emphysema - J4 3.1 (Primary)?2.?Osteopenia of right hip - M85.851?3.?Acquired hypothyroidism - E03.9?4.?Encounter for immunization - Z23?5.?Pure hypercholesterolemia - E78.00?6.?Labile hypertension - I10? Plan: * Treatment: 2.?Osteopenia of right hip? Notes: no need for treatment?? 3.?Acquired hypothyroidism? Continue Levothyroxine Sodium Tablet, 88 MCG, TAKE 1 TABLET BY MOUTH EVERY DAY IN THE MORNING ON AN EMPTY STOMACH.?LAB: Liver Panel ?LAB: Lipid Panel ?LAB: TSH reflex Free T4 Notes: will recheck , pending lab, will contiue current regiment?? 4.?Encounter for immunizatio n? Notes: flu vaccine administered?? 5.?Pure hypercholesterolemia ? Continue Atorvastatin Calcium Tablet, 40 MG, TAKE 1 TABLET BY MOUTH EVERY DAY.?LAB: Liver Panel ?LAB: Lipid Panel Notes: will recheck, pending labs, will cntiue current regiment?? 6.?Labile hypertension? Notes: stable, will continue current regiment?? * Immunizations:? Influenza High Dose : 0.5 (Dose No:1) (Route: Intramuscular) given by Karen Beltran on Right Deltoid * Procedure Codes:?39392 FLU V ACC PRSV FREE INC [id number] VENIPUNCT, ROUTINE*G0008 ADMN FLU VAC NO FEE SCHED SAME DAY * Preventive Medicine:? ??Immunizations:?Influenza?Have you had a flu shot since the most recent May 07??Yes.? * Follow Up:?6 Months (Reason: comp) * * Sign off status: Completed true * Provider:?Andrew Waldrop MD Date:?1 09/19/2023 Generated for Vinita gracia/Jeet/eTransmitting on:?12/14/2024 01:14 PM EDT History and Physical Notes * HPI [...]
--- OUTSIDE RECORDS SUMMARY | 2024-12-14 13:14 | XMS_ITS | Patient Health Record ---
Author Organization Andrew Waldrop MD Address [address] [place] [address], [place] [id number] Care Team Providers Care Generation Technician Name Role Phone Andrew Waldrop Primary Care Provider Allergies Allergen (clinical drug ingredient) Drug/Non Drug Allergy documented on EMR Reaction Allergy Type Onset Date Status penicillin G Penicillin G Potassium rash Drug Allergy Active Results Component Value Reference Range Notes Complete Blood Count Auto Di ff Reviewed date:01/10/2024 12:46:00 PM Interpretation: Performing Lab:[facility], [address] [place] [phone] Notes/Report: White Blood Count 8.2 4.8-10.8 X10*3/uL Red Blood Count 4.80 4.20-5.50 X10*6/uL Hemoglobin 14.8 12.0-16.0 g/dl Hematocrit 46.2 37.0-47.0 % Mean Corpuscular Volume 96.3 80.0-98.0 fL Mean Corpuscular Hemoglobin 30.8 27.0-33.0 pg Mean Corpuscular HGB Conc 32.0 31.0-35.0 g/dl Red Cell Distribution Width 12.1 11.0-16.0 % Platelet Count 310 160-400 X10*3/uL Mean Platelet Volume 10.5 9.4-12.3 fL Neutrophils Percent Auto 50.8 45-73 % Imm Gran Pct Auto 0.4 0.0-0.4 % Lymphocytes Percent Auto 33.1 20-40 % Monocytes Percent Auto 9.6 2-11 % Eosinophils Percent Auto 5.1 0-4 % Basophils Percent Auto 1.0 0-2 % NRBC Pct Auto 0.0 0.0-0.2 /100WBC Neutrophils Absolute Auto 4.2 2.0-8.3 x10*3/uL Imm Gran Abs Auto 0.03 0.00-0.03 X10*3/uL Lymphocytes Absolute Auto 2.7 1.2-4.9 X10*3/uL Monocytes Absolute Auto 0.8 0.1-1.2 X10*3/uL Eosinophils Absolute Auto 0.4 0.0-0.4 X10*3/uL Basophils Absolute Auto 0.1 0.0-0.2 X10*3/uL NRBC Abs Auto 0.000 0.0-0.012 X10*3/uL Lipid Panel Reviewed date:01/10/2024 12:45:17 PM Interpretation: Performing Lab:[address] [phone] Notes/Report: Triglycerides 69 <150 mg/dL Desirable Triglyceride: less than 150 mg/dL Borderline High Triglyceride 150-199 mg/dL High Triglyceride: 200-499 mg/dL Very High Triglyceride: greater than or equal to 5OO mg/dL Cholesterol 153 <200 mg/dL Desirable Cholesterol: less than 200 mg/dL Borderline High Cholesterol: 200-239 mg/dL High Cholesterol: greater than 239 mg/dL LDL Cholesterol Calculated 77 <100 mg/dL Desirable LDL: less than 100 mg/dL Near Optimal/Above Optimal LDL: 110-129 mg/dL Borderline High LDL: 130-159 mg/dL High LDL: 160-189 mg/dL Very High LDL: greater than or equal to 190 mg/dL HDL Cholesterol 63 >40 mg/dL Desirable HDL: greater than 40 mg/dL Note: This HDL assay may give artificially low results in patients with liver disease. Vitamin D 25-OH Total Reviewed date:01/10/2024 12:37:40 PM Interpretation: Performing Lab:[address] [phone] Notes/Report: Vitamin D 25-OH Total 40.8 >30 ng/mL Health Based Reference Values* < 20 ng/mL Deficient 20-30 ng/mL Insufficient > 30 ng/mL Sufficient *Thierry SKY. N Engl J Med. 2007;357:266-280 Care must be taken in interpreting Vitamin D results from different laboratories and methodologies. Published data demonstrated that results from patients undergoing hemodialysis may show a negative bias when tested with various automated 25-OH vitamin D assays when compared to LC-MS/MS. When testing samples from patients whose predominant form of Vitamin D is Vitamin D2, such as patients receiving Vitamin D2 supplementation, results that are subtherapeutic should be confirmed with another method such as LC-MS/MS. TSH reflex Free T4 Reviewed date:01/10/2024 12:44:05 PM Interpretation: Performing Lab:[address] [phone] Notes/Report: TSH reflex Free T4 2.75 0.32-4.0 uIU/mL UA ClnCatch+Micro w/rflx Cul t Reviewed date:01/10/2024 06:44:56 PM Interpretation: Performing Lab:[facility], [address] [place] [phone] Notes/Report: Urine, Clean Catch Color Urine Yellow Appearance Urine Clear PH 6.5 5.0-9.0 Glucose Urine UA Negative Negative mg/dL Urine Blood Negative Negative Specific [place] - Urine 1.015 1.005-1.025 Urine Protein Negative Neg-Trace mg/dL Urine Ketones Negative Negative mg/dL Nitrite Urine Negative Negative Leukocyte Esterase Urine Trace Negative RBC Urine 0-2 0-2 /HPF WBC Urine 0-5 0-5 /HPF Squamous Epithelial Cell Urine 0-2 0-2 /HPF Bacteria Urine None Seen None Seen Hyaline Casts Urine 0-2 0-2 /LPF Liver Panel Reviewed date:07/20/2024 05:36:54 PM Interpretation: Performing Lab:[address] [phone] Notes/Report: Bilirubin Total 0.6 0.0-1.0 mg/dL Bilirubin Direct 0.2 0.0-0.5 mg/dL Aspartate Amino Transferase 26 5-31 U/L Alanine Aminotransferase 16 0-31 U/L Total Protein 6.8 6.5-8.0 g/dL Albumin Level 3.9 3.5-5.0 g/dL Alkaline Phosphatase 82 39-117 U/L Lipid Panel Reviewed date:07/20/2024 05:36:26 PM Interpretation: Performing Lab:[facility], [address] [place] [phone] Notes/Report: Triglycerides 61 <150 mg/dL Desirable Triglyceride: [...] T4 Reviewed date:07/20/2024 05:36:18 PM Interpretation: Performing Lab:[facility], [address] [place] [phone] Notes/Report: TSH reflex Free T4 0.73 0.32-4.0 uIU/mL Hold Lav - Possible Hematolo gy Reviewed date:01/10/2024 12:38:50 PM Interpretation: Performing Lab:[facility], [address] [place] [phone] Notes/Report: Hold Lav - Possible Hematology SEE NOTE Specimen will be held untested for 8 hours. Call Hematology if testing is desired. Comprehensive Met. Panel Reviewed date:01/10/2024 06:41:42 PM Interpretation: Performing Lab:[facility], [address] [place] [phone] Notes/Report: Sodium 141 135-145 mmol/L Potassium 4.6 3.3-5.1 mmol/L Chloride 104 96-108 mmol/L Carbon Dioxide 29 22-29 mmol/L Anion Gap 13 12-20 Blood Urea Nitrogen 21 9-16 mg/dL Creatinine 0.90 0.5-1.4 mg/dL Estimated Glomerular Filt Rate > 60 NOTE: For -[place] individuals, multiply the result by 1.210. Chronic Kidney Disease: Estimated GFR < 60 mL/min/1.73m2 Severe Kidney Disease: Estimated GFR < 15 mL/min/1.73m2 Glucose Random 105 60-115 mg/dL Calcium 9.4 8.4-10.2 mg/dL Bilirubin Total 0.4 0.0-1.0 mg/dL Aspartate Amino Transferase 18 5-31 U/L Alanine Aminotransferase 15 0-31 U/L Total Protein 6.8 6.5-8.0 g/dL Albumin Level 3.8 3.5-5.0 g/dL Alkaline Phosphatase 89 39-117 U/L Hold Gold Reviewed date:01/10/2024 12:37:48 PM Interpretation: Performing Lab:[facility], [address] [place] [phone] Notes/Report: Hold Gold See Note Specimen held untested for 24 hours; Call to request Chemistry testing. XR DEXA axial skeleton Reviewed date:02/25/2024 08:03:03 AM Interpretation: Performing Lab: Notes/Report: [facility]'s [address] [place] [address] Mammography Report Signed Patient: Lily Feliz MR#: [id number] : 1950 Acct:[id number] Age/Sex: 73 / F ADM Date: 02/24/24 Loc: HO.MAMMO Attending Dr: Andrew Waldrop MD Ordering Physician: Andrew Waldrop MD Results: Date of Service: 02/24/24 Follow Up: Procedure(s): XR DEXA axial skeleton Accession Number(s): [id number] cc: Andrew Waldrop MD EXAMINATION: BONE DENSITOMETRY CLINICAL INDICATION: Other specified disorders of bone density and structure, right thigh. COMPARISON: Previous BD dated 12/17/2020 and baseline BD dated 11/16/2017. TECHNIQUE: Using a [employer] DXA System (software version: 13.1) manufactured by [employer], dual-energy x-ray absorptiometry was performed of the lumbar spine and left hip. The images are of good technical quality. Summary results are attached. FINDINGS: AP SPINE L2-L4 (L3) (excluding L1 and L3): The data of L1-L4 has been changed to exclude the L1 and L3 vertebral bodies, because degenerative sclerosis at these levels may cause overestimation of lumbar spine density. Current: BMD 0.998 g/cm2, Z-score -0.7, T-score -1.7, osteopenia, 5.8% increase from previous, 4.2% increase from baseline (<5% change is not significant). Prior: BMD 0.943 g/cm2. Baseline: BMD 0.958 g/cm2. LEFT FEMUR, NECK: Current: BMD 0.764 g/cm2, Z-score -0.7, T-score -2.0, osteopenia. Prior: BMD 0.765 g/cm2. Baseline: BMD 0.826 g/cm2. LEFT FEMUR, TOTAL: Current: BMD 0.826 g/cm2, Z-score -0.4, T-score -1.4, osteopenia, 2.8% decrease from previous, 7.1% decrease from baseline (<5% change is not significant). Prior: BMD 0.850 g/cm2. Baseline: BMD 0.889 g/cm2. IDENTIFIED RISK FACTORS: Height loss. Secondary osteoporosis (early menopause). HISTORY OF FRACTURE: None listed. MEDICATIONS: Vitamin D. MM/XR DEXA axial skeleton IMPRESSION: 1. DIAGNOSIS: Osteopenia based on the lowest T-score value of -2.0 in the femoral neck applying World Health Organization criteria. 2. 10-YEAR FRACTURE RISK PREDICTION, FRAX: Major osteoporotic fracture (clinical spine, forearm, hip or shoulder) 11.6%. Hip fracture 2.5%. 3. Treatment Recommendations: NOF guidelines recommend consideration for treatment in postmenopausal women and men age 50 and older presenting with the following: -A hip or vertebral (clinical or morphometric) fracture. -T-score less than or equal to -2.5 at the femoral neck or spine after appropriate evaluation to exclude secondary causes. -Low bone mass at the hip or spine and a 10-year fracture probability by FRAX of greater than or equal to 3% for hip fracture or greater than or equal to 20% for major osteoporotic fracture based on the [place] adapted WHO algorithm. 4. Other Recommendations: All treatment decisions require clinical judgment and consideration of individual patient factors, including patient preferences, comorbidities, previous drug use, risk factors not captured in the FRAX model (e.g. frailty, falls, vitamin D deficiency, increased bone turnover, interval significant decline in bone density) and possible under or overestimation of fracture risk by FRAX. Additional medical evaluation for secondary cause of low bone mineral density may be appropriate. FUTURE SCAN RECOMMENDATION: People with diagnosed cases of osteoporosis or at high risk for fracture should have regular bone mineral density tests. For patients eligible for Medicare, routine testing is allowed once every 2 years. The testing frequency can be increased to one year for patients who have rapidly progressing disease, those who are receiving or discontinuing medical therapy to restore bone mass, or have additional risk factors. Dictated By: Rory Winters MD Signed By: <Electronically signed by Rory Winters MD in OV> 02/24/24 1445 DD/ 0855 TD/TT: Mixologist: BATOOL [place] [facility]'s [address] [place], [place] [address] Mammography Report Signed Patient: Lily Feliz MR#: [id number] : 1950 Acct:[id number] Age/Sex: 73 / F ADM Date: 02/24/24 Loc: HO.MAMMO Attending Dr: Andrew Waldrop MD Ordering Physician: Andrew Waldrop MD Results: Date of Service: 02/24/24 Follow Up: Procedure(s): XR DEX A axial skeleton Accession Number(s): [id number] cc: Andrew Waldrop MD EXAMINATION: BONE DENSITOMETRY CLINICAL INDICATION: Other specified disorders of bone density and structure, right thigh. COMPARISON: Previous BD dated 12/17/2020 and baseline BD dated 11/16/2017. TECHNIQUE: Using a [employer] DXA System (software version: 13.1) manufactured by [employer], dual-energy x-ray absorptiometry was performed of the lum bar spine and left hip. The images are of good technical quality. Summary results are attached. FINDINGS: AP SPINE L2-L4 (L3) (excluding L1 and L3): The data of L1-L4 has been changed to exclude t he L1 and L3 vertebral bodies, because degenerative sclerosis at these levels may cause overestimation of lumbar spine density. Current: BMD 0.998 g/cm2, Z-score -0.7, T-score -1.7, osteopenia, 5.8% increase from previo us, 4.2% increase from baseline (<5% change is not significant). Prior: BMD 0.943 g/cm2. Baseline: BMD 0.958 g/cm2. LEFT FEMUR, NECK: Current: BMD 0.764 g/cm2, Z-score -0.7, T-score -2.0, osteopenia. Prior: BMD 0.765 g/cm2. Baseline: BMD 0.826 g/cm2. LEFT FEMUR, TOTAL: Current: BMD 0.826 g/cm2, Z-score -0.4, T-score -1.4, osteopenia, 2.8% decrease from previo us, 7.1% decrease from baseline (<5% change is not significant). Prior: BMD 0.850 g/cm2. Baseline: BMD 0.889 g/cm2. IDENTIFIED RISK FACTORS: Height loss. Seconda ry osteoporosis (early menopause). HISTORY OF FRACTURE: None listed. MEDICATIONS: Vitamin D. MM/XR DEXA axial skeleton IMPRESSION: 1. DIAGNOSIS: Osteopenia based on the lowest T-score value of -2.0 in the femoral neck applying World Health Organization criteria. 2. 10-YEAR FRACTURE RISK PREDICTION, FRAX: Major osteoporotic fracture (clinical spine, forearm, hip or shoulder) 11.6%. Hip fracture 2.5%. 3. Treatment Recommendations: NOF guidelines recommend consideration for treatment in postmenopausal women and men age 50 and older presenting with the following: -A hip or vertebral (clinical or morphometric) fracture. -T-score less than o r equal to -2.5 at the femoral neck or spine after appropriate evaluati on to exclude secondary causes. -Low bone mass at th e hip or spine and a 10-year fracture probability by FRAX of greater t singh or equal to 3% for hip fracture or greater than or equal to 20% for major osteoporotic fracture based on the [place] adapted WHO algorithm. 4. Other Recommendations: All treatment decisions require clinical judgment and consideration of individual patient factors, including patient preferences, comorbidities, previous drug use, risk factors not captured in the FRAX model (e.g. frailty, falls, vitamin D deficiency, increased bone turnover, interval significant decline in bone density) and possible under o r overestimation of fracture risk by FRAX. Additional medical evaluation for secondary cause of low bone mineral density may be appropriate. FUTURE SCAN RECOMMENDATION: People with diagnose d cases of osteoporosis or at high risk for fracture should have regular bone mineral density tests. For patients eligible for Medicar e, routine testing is allowed once every 2 years. The testing frequenc y can be increased to one year for patients who have rapidly progressing disease, those who are receiving or discontinuing medica l therapy to restore bone mass, or have additional risk factors. Dictated By: Rory Winters MD Signed By: <Electronically signed by Rory Winters MD in OV> 02/24/24 1445 DD/ 0855 TD/TT: Mixologist: BATOOL MM tomosynthesis screening B I Reviewed date:06/02/2024 01:45:51 PM Interpretation: Performing Lab: Notes/Report: [facility]'[address] [place], [place] [address] Mammography Report Signed Patient: Lily Feliz MR#: [id number] : 1950 Acct:[id number] Age/Sex: 74 / F ADM Date: 05/22/24 Loc: HO.MAMMO Attending Dr: Andrew Waldrop MD Ordering Physician: Andrew Waldrop MD Results: 1Ne gative Date of Service: 05/22/24 Follow Up: 1 Year From Orig ina Mammogram Procedure(s): MM tomosynthesis screening BI Accession Number(s): [id number] cc: Andrew Waldrop MD EXAMINATION: MM SCREENING DIGITAL BREAST TOMOSYNTHESIS, BILATERAL CLINICAL INFORMATION: Screening. Asymptomatic. COMPARISON: Mammography: Comparison is made with available priors TECHNIQUE: Digital breast mammography with tomosynthesis is performed in both the craniocaudal and mediolateral oblique views along with computer-aided detection (CAD). FINDINGS: The breasts are heterogeneously dense, which may obscure small masses (ACR BI-RADS breast composition Category c). There are no significant masses, abnormal calcifications, or other abnormalities. MM/MM tomosynthesis screening BI IMPRESSION: No mammographic evidence of malignancy. ASSESSMENT: BI-RADS BI-RADS 1 - Negative RECOMMENDATION: Routine annual mammography screening. 1 year F/U This examination should not preclude the clinical evaluation of a suspicious palpable abnormality. This patient's information was entered into a reminder system with a target due date for their next mammogram. Electronically signed by: Danielle Tanner DO 06/02/2024 10:02 AM EDT RP Dictated By: Danielle Tanner DO Signed By: <Electronically signed by Danielle Tanner DO in OV> 06/02/24 1002 DD/ 1000 TD/TT: 05/22/24 1013 Mixologist: [facility] [address] [place] [address] Mammography Report Signed Patient: Lily Feliz MR#: [id number] : 1950 Acct:[id number] Age/Sex: 74 / F ADM Date: 05/22/24 Loc: HO.MAMMO Attending Dr: Andrew Waldrop MD Ordering Physician: Andrew Waldrop MD Results: 1Ne gative Date of Service: 05/22/24 Follow Up: 1 Year From Orig ina Mammogram Procedure(s): MM tomosynthesis screening BI Accession Number(s): [id number] cc: Andrew Waldrop MD EXAMINATION: MM SCREENING DIGITAL BREAST TOMOSYNTHESIS, BILATERAL CLINICAL INFORMATION: Screening. Asymptomatic. COMPARISON: Mammography: Compari son is made with available priors TECHNIQUE: Digital breast mammography with tomosynthesis is performed in both the craniocaudal and mediolateral oblique views along with computer-aided detection (CAD). FINDINGS: The breasts are heterogeneously dense, which may obscure small masses (ACR BI-RADS breast composition Category c). There are no significant masses, abnormal calcifications, or other abnormalities. MM/MM tomosynthesis screening BI IMPRESSION: No mammographic evidence of malignancy. ASSESSMENT: BI-RADS BI-RADS 1 - Negative RECOMMENDATION: Routine annual mammography screening. 1 year F/U This examination conrado uld not preclude the clinical evaluation of a suspicious palpable abnormality. This patient's information was entered into a reminder system with a target due date for their next mammogram. Electronically sharon d by: Danielle Tanner DO 06/02/2024 10:02 AM EDT RP Dictated By: Danielle Tanner DO Signed By: <Electronically signed by Danielle Tanner DO in OV> 06/02/24 1002 DD/ 1000 TD/TT: 05/22/24 1013 Mixologist: Bryan Santana Reviewed date:07/20/2024 01:49:31 PM Interpretation: Performing Lab:[facility], [address] [place] [phone] Notes/Report: Bryan Santana See Note Specimen held untested for 24 hours; Call to request Chemistry testing. Reason For Referral No Information Medications Medication SIG (Take, Route, Frequency, Duration) Notes Start Date End Date Status Atorvastatin Calcium 40 MG TAKE 1 TABLET BY MOUTH EVERY DAY Active Levothyroxine Sodium 88 MCG TAKE 1 TABLET BY MOUTH EVERY DAY IN THE MORNING ON AN EMPTY STOMACH Active Ativan 0.5 MG 1 tablet as needed Orally every 6 hrs for 5 days 05/07/2017 Not-Taking Aspirin 81 MG 1 tablet Orally Once a day for 30 day(s) 02/10/2018 Active Vitamin D (Cholecalciferol) 1000 UNIT 1 tablet Orally Once a day 11/11/2016 Active Advil 200 MG 1 tablet as needed Orally every 6 hrs Not-Taking Metoprolol Succinate ER 50 MG TAKE 1 TABLET BY MOUTH EVERY DAY for 90 Active Immunizations Vaccine Route Administration Date Status Comme nts Flu Vaccine IM Intramuscular 06/30/2011 Administered Flu Vaccine IM Intramuscular 07/08/2012 Administered Flu Vaccine IM Intramuscular 06/22/2013 Administered Flu Vaccine IM Intramuscular 07/02/2014 Administered PPSV23 (Pnemovax) IM Intramuscular 10/25/2014 Administered Fluarix Quadrivalent IM Intramuscular 05/27/2015 Administe red Prevnar 13 IM Intramuscular 10/28/2015 Administered Fluarix Quadrivalent IM Intramuscular 07/16/2016 Administe red Fluarix Quadrivalent IM Intramuscular 05/07/2017 Administe red Fluarix Quadrivalent IM Intramuscular 05/16/2018 Administe red Fluarix Quadrivalent IM Intramuscular 05/22/2019 Administe red PPSV23 (Pnemovax) IM Intramuscular 11/13/2019 Administered Influenza High Dose IM Intramuscular 05/09/2020 Administer ed Covid Vaccine Unknown 11/02/2020 Administered [place] Covid Vaccine Unknown 12/02/2020 Administered Moderna Influenza High Dose IM Intramuscular 05/30/2021 Administer ed SARS-COV-2 Moderna Unknown 07/21/2021 Administered [facility] SARS-COV-2 Pfizer Unknown 12/18/2021 Administered Influenza High Dose IM Intramuscular 05/15/2022 Administer ed SARS-COV-2 Moderna Unknown 06/16/2022 Administered [facility] Influenza High Dose IM Intramuscular 08/02/2023 Administer ed Influenza High Dose IM Intramuscular 07/20/2024 Administer ed Fluarix Quadrivalent Unknown 05/07/2016 Refused Social History Tobacco Use: Social History Observation [...] ast year? 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 (premature ventricular contraction) (I49.3) Active confirmed Problem 15698544 Vitamin D defici ency (E55.9) Active confirmed Problem Anxiety (14241968) Anxiety (F41.9) Active confirmed Problem 8649370 Panlobular emphy sema (J43.1) Active confirmed Problem 753388364 Other specified menopausal and perimenopausal disorders (N95.8) Active confirmed Problem 151231518 Acquired hypothy roidism (E03.9) Active confirmed Problem 26735702 Labile hypertens ion (I10) Active confirmed Problem 346661556 Lung nodules (R91.8) Active confirmed Problem 504547692 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) Active confirmed Problem 7310084 Former smoker (Z87.891) Active confirme d Problem 644937264 Family history o f hypothyroidism (Z83.49) Active confirmed Problem 958395250 Pure hypercholesterolemia (E78.00) Active confirmed Problem 856571072 Microscopic camacho turia (R31.29) Active confirmed Problem 933454485 Osteopenia of ri ght hip (M85.851) Active confirmed Vital Signs Blood pressure diastolic 94 mm Hg 07/20/2024 Height 60 in 07/20/2024 Blood pressure systolic 132 mm Hg 07/20/2024 Weight 203 lbs 07/20/2024 BMI 39.64 kg/m2 07/20/2024 Encounters Encounter Location Date Provider Diagnosis Andrew Waldrop MD [address] [place] [id number] 01/10/2024 Andrew Waldrop Labile hypertension I10 ; Pure hypercholesterolemia E78.00 ; Vitamin D deficiency E55.9 and Acquired hypothyroidism E03.9 Andrew Waldrop MD [address] [place] [address] [id number] 01/17/2024 Andrew Waldrop Osteopenia of right hip M85.851 ; Panlobular emphysema J43.1 ; Acquired hypothyroidism E03.9 ; Vitamin D deficiency E55.9 ; Pure hypercholesterolemia E78.00 ; Labile hypertension I10 and Depression screening Z13.31 Andrew Waldrop MD [address] [place] [address] [id number] 07/20/2024 Andrew Waldrop Panlobular emphysema J43.1 ; Osteopenia of right hip M85.851 ; Acquired hypothyroidism E03.9 ; Encounter for immunization Z23 ; Pure hypercholesterolemia E78.00 and Labile hypertension I10 Andrew Waldrop MD [address] [place] [address] [id number] 02/25/2024 Andrew Waldrop Osteopenia of right hip M85.851 and Vitamin D deficiency E55.9 Andrew Waldrop MD [address] [place] [address] [id number] 07/21/2024 Andrew Waldrop Assessments Encounter Date Diagnosis (ICD Code) Assessment Notes Treatment Notes Treatment Clinical Notes Section Notes 01/10/2024 Labile hypertension (ICD-10 - I10) 01/10/2024 Pure hypercholesterolemia (ICD-10 - E78.00) 01/17/2024 Osteopenia of right hip (ICD-10 - M85.851) THE ORDER WAS FAXED TO [facility] , PATIENT IS AWARE 01/17/2024 Panlobular emphysema (ICD-10 - J43.1) stable, will continue to monitor 07/20/2024 Panlobular emphysema (ICD-10 - J43.1) instructed in use of inhaler 07/20/2024 Osteopenia of right hip (ICD-10 - M85.851) no need for treatment 02/25/2024 Osteopenia of right hip (ICD-10 - M85.851) order made and printed and put into the future folder for 01/10/2024 Vitamin D deficiency (ICD-10 - E55.9) 01/17/2024 Acquired hypothyroid ism (ICD-10 - E03.9) doing well, will continue current regiment 07/20/2024 Acquired hypothyroid ism (ICD-10 - E03.9) will recheck , pending lab, will contiue current regiment 02/25/2024 Vitamin D deficiency (ICD-10 - E55.9) 01/10/2024 Acquired hypothyroid ism (ICD-10 - E03.9) 01/17/2024 Vitamin D deficiency (ICD-10 - E55.9) stable, will continue current regiment 07/20/2024 Encounter for immunization (ICD-10 - Z23) flu vaccine administered 01/17/2024 Pure hypercholesterolemia (ICD-10 - E78.00) stable, will continue current regiment 07/20/2024 Pure hypercholesterolemia (ICD-10 - E78.00) will recheck, pending labs, will cntiue current regiment 01/17/2024 Labile hypertension (ICD-10 - I10) doing well, will continue current regiment 07/20/2024 Labile hypertension (ICD-10 - I10) stable, will continue current regiment 01/17/2024 Depression screening (ICD-10 - Z13.31) negative screen Plan Of Treatment Pending Test Test Name Order Date Electrocardiogram (EKG) 11/04/2017 Electrocardiogram (EKG) 11/10/2018 BONE DENSITY DEXA 01/17/2024 CT chest wo con 03/20/2021 XR DEXA axial skeleton 02/25/2024 XR DEXA axial skeleton 11/22/2020 Future Test Test Name Order Date CT CHEST NO CONTRAST 03/19/2021 CT chest wo con 03/23/2023 Next Appt Details Provider Name:Andrew dia, 01/12/2025 08:00:00 AM, [address] [place] [address], [address], [place], [place], [phone], Provider Name:Andrew marmolejor, 01/19/2025 10:00:00 AM, [address], [address], [place], [place], [phone], Insurance Providers Payer Name Payer Address Payer Phone Subscriber Number Group Number Insured Name Patient Relationship to Insured Coverage Start Date Coverage End Date [employer] [address] [place] [address] [id number] Lily Feliz Self - patient is the insured [address] [place] [phone] [id number] Lily Feliz Self - patient is the insured 6 Medical (General) History Medical History History ICD Code hematuria work up [address] Anay Camarena; pap smear 06/07 (Neg); 07/2013 Colonoscopy 2005; Colonoscopy 05/08/16 w/D leda Arnold (repeat 10 years) cad on ct of chest 2016 refuses bisphosphanate adult lung cancer screeing program at [facility]
--- OUTSIDE RECORDS SUMMARY | 2024-12-14 13:14 | XMS_ITS ---
Author Organization Andrew Waldrop MD Address [address] [place] [phone] Care Team Providers Care Machine Room Engineer Name Role Phone Andrew Waldrop Primary Care Provider REASON FOR VISIT Bone Density due Encounters Encounter Location Date Provider Diagnosis Andrew Waldrop MD [address] [facility] [address] [place] [phone] 02/25/2024 Andrew Waldrop Osteopenia of right hip [...] 02/25/2024 Next Appt Details Provider Name:Andrew dia, 01/12/2025 08:00:00 AM, [address] [place] [address], [place] [address], [place], [place], [phone], Provider Name:Andrew dia, 01/19/2025 10:00:00 AM, [address], [address], [place], [phone], Progress Notes * Mora TOWNSENDOB:1950 ([age] yo F)Acc No.[id number]:02/25/2024 Patient:?Lily Townsend :1950???Age:73 Y???Sex:Female Address:[address] [place] [address] [place] [address] Subjective: * Chief Complaints: * ???Bone Density due * Medical History:? * Surgical History:? * Hospitalization/Major Diagno stic Procedure:? * Medications:? Objective: Assessment: * Assessment: 1.?Osteopenia of right hip - M85.851?2.?Vitamin D deficiency - E55.9? Plan: * Treatment: Notes: order made and printed and put into the future folder for .?? 2.?Vitamin D deficiency?Imaging: XR DEXA axial skeleton* Karen Beltran 02/25/20 24 07:17:43 AM EDT > To be done * Procedure Codes:? * true * Date:? Generated for Vinita gracia/Jeet/eTgavinosmitting on:?12/14/2024 01:13 PM EDT
== END 2024-12-14 11:25 | disposition home or self-care (01) ==
LOC: HO.HCS 11:00
PROVIDERS: PCP Internal Medicine; Visit Provider Internal Medicine Cardiovascular Disease
DX: I49.3 Ventricular premature depolarization (principal); E78.00 Pure hypercholesterolemia, unspecified
CPT/HCPCS: 93010; 99214; G2211

== ENCOUNTER → 2024-12-14 10:59 | Outpatient (BNVA) | payer MEDICARE, OTHER, SELFPAY | PROVIDERS: PCP Internal Medicine; Visit Provider Internal Medicine Cardiovascular Disease | DX: I49.3 Ventricular premature depolarization (principal); E78.00 Pure hypercholesterolemia, unspecified; Z87.891 Personal history of nicotine dependence | CPT/HCPCS: 93005; 99212 ==

== ENCOUNTER 2025-01-12 10:12 | Outpatient (REF) | payer MEDICARE, OTHER, SELFPAY ==
[2025-01-12 10:19] LABS: MANUAL DIFF FLAG NO
[2025-01-12 10:23] LABS: Basophils Absolute Auto 0.1 X10*3/uL (0.0-0.2); Basophils Percent Auto 1.1 % (0-2); Eosinophils Absolute Auto 0.4 X10*3/uL (0.0-0.4); Eosinophils Percent Auto 4.8 % (0-4); Hematocrit 44.9 % (37.0-47.0); Hemoglobin 14.6 g/dl (12.0-16.0); Imm Gran Abs Auto 0.03 X10*3/uL (0.00-0.03); Imm Gran Pct Auto 0.4 % (0.0-0.4); Lymphocytes Absolute Auto 2.6 X10*3/uL (1.2-4.9); Lymphocytes Percent Auto 31.6 % (20-40); Mean Corpuscular HGB Conc 32.5 g/dl (31.0-35.0); Mean Corpuscular Hemoglobin 31.3 pg (27.0-33.0); Mean Corpuscular Volume 96.4 fL (80.0-98.0); Mean Platelet Volume 10.2 fL (9.4-12.3); Monocytes Absolute Auto 0.8 X10*3/uL (0.1-1.2); Monocytes Percent Auto 9.2 % (2-11); Neutrophils Absolute Auto 4.4 x10*3/uL (2.0-8.3); Neutrophils Percent Auto 52.9 % (45-73); Platelet Count 293 X10*3/uL (160-400); Red Blood Count 4.66 X10*6/uL (4.20-5.50); Red Cell Distribution Width 12.3 % (11.0-16.0); White Blood Count 8.3 X10*3/uL (4.8-10.8)
[2025-01-12 10:24] LABS: Appearance Urine Clear; Color Urine Yellow; Glucose Urine UA Negative (Negative); Leukocyte Esterase Urine Negative (Negative); Nitrite Urine Negative (Negative); PH 6.5 (5.0-9.0); Specific Gravity - Urine <= 1.005 (1.005-1.025); Urine Blood Negative (Negative); Urine Ketones Negative (Negative); Urine Protein Negative (Neg-Trace)
[2025-01-12 10:28] LABS: Bacteria Urine None Seen (None Seen); Hyaline Casts Urine 0-2 /LPF (0-2); RBC Urine 0-2 /HPF (0-2); Squamous Epithelial Cell Urine 0-2 /HPF (0-2); WBC Urine 0-5 /HPF (0-5)
--- OUTSIDE RECORDS SUMMARY | 2025-01-12 10:42 | XMS_ITS ---
Author Organization Andrew Waldrop MD Address [address] [place] [phone] Care Team Providers Care Treasury Specialist Name Role Phone Andrew Waldrop Primary Care Provider REASON FOR VISIT Lab results Encounters Encounter Location Date Provider Diagnosis Andrew Waldrop MD [address] [facility] [address] [place] [phone] 07/21/2024 Andrew Waldrop Plan Of Treatment Next Appt Details Provider Name:Andrew Delacruz ier, 01/19/2025 10:00:00 AM, [address] [facility], Suite [facility], [place], [place], [phone], Progress Notes * Mora FELIZOB:1950 ([age] yo F)Acc No.[id number]:07/21/2024 Patient:?Lily Feliz :1950???Age:74 Y???Sex:Female Address:[place] [address] * true * Date:? Generated for Printi ng/Fagatitog/eTransmitting on:?01/12/2025 10:41 AM EDT
--- OUTSIDE RECORDS SUMMARY | 2025-01-12 10:42 | XMS_ITS ---
Author Organization Andrew Waldrop MD Address [address] [place], [place] [phone] Care Team Providers Care Social Media Director Name Role Phone Andrew Waldrop Primary Care Provider Results Component Value Reference Range Notes Complete Blood Count Auto Di ff (Not yet reviewed by provider) Interpretation: Performing Lab:[facility], [address] [place] [phone] Notes/Report: White Blood Count 8.3 4.8-10.8 X10*3/uL [...] X10*3/uL NRBC Abs Auto 0.000 0.0-0.012 X10*3/uL UA ClnCatch+Micro w/rflx Cul t (Not yet reviewed by provider) Interpretation: Performing Lab:[facility], [address] [place] [phone] Notes/Report: Urine, Clean Catch Color Urine Yellow Appearance Urine Clear PH 6.5 5.0-9.0 Glucose Urine UA Negative Negative mg/dL Urine Blood Negative Negative Specific [place] - Urine <= 1.005 1.005-1.025 Urine Protein [...] Location Date Provider Diagnosis Andrew Waldrop MD [address] [place] [address] [address] [place], [place] [phone] 01/12/2025 Andrew Waldrop Labile hypertension I10 ; Pure hypercholesterolemia E78.00 ; Vitamin D deficiency E55.9 and Acquired hypothyroidism E03.9 Assessments Encounter Date Diagnosis (ICD Code) Assessment Notes Treatment Notes Treatment Clinical Notes Section Notes 01/12/2025 Labile hypertension (ICD-10 - I10) 01/12/2025 Pure hypercholesterolemia (ICD-10 - E78.00) 01/12/2025 Vitamin D deficiency (ICD-10 - E55.9) 01/12/2025 Acquired hypothyroid ism (ICD-10 - E03.9) Plan Of Treatment Pending Test Test Name Order Date Complete Blood Count Auto Diff 5 Comprehensive [facility]. Panel Fast 5 Lipid Panel 01/12/2025 Vitamin D 25-OH Total 01/12/2025 TSH reflex Free T4 01/12/2025 UA ClnCatch+Micro w/rflx Cult 01/12/2025 Next Appt Details Provider Name:Andrew Delacruz ier, 01/19/2025 10:00:00 AM, [address] [facility], [address], [place], [phone], Progress Notes * CARY CarrieFredaOB:1950 ([age] yo F)Acc No.[id number]:01/12/2025 Progress Note Patient:?FELIZLily Provider:?Andrew Waldrop MD :1950???Age:74 Y???Sex:Female D ate:01/12/2025 Address:[address] [place], [place] [id number] Subjective: * Chief Complaints: * ???1. FASTING LABS. * Medical History:? Objective: * Vitals:? Assessment: * Assessment: 1.?Labile hypertension - I10 (Primary)???2.?Pure hypercholesterolemia - E78.00???3.?Vitamin D deficiency - E55.9???4.?Acquired hypothyroidism - E03.9??? Plan: * Treatment: 2.?Pure hypercholesterolemia ?LAB: Complete Blood Count Auto Diff (Collection Date & Time - 01/12/2025 08:00 AM) ?LAB: Comprehensive [facility]. Panel Fast ?LAB: Lipid Panel ?LAB: Vitamin D 25-OH Total ?LAB: TSH reflex Free T4 ?LAB: UA ClnCatch+Micro w/rflx Cult (Collection Date & Time - 01/12/2025 08:00 AM) 3.?Vitamin D deficiency?LAB: Complete Blood Count Auto Diff (Collection Date & Time - 01/12/2025 08:00 AM) ?LAB: Comprehensive [facility]. Panel Fast ?LAB: Lipid Panel ?LAB: Vitamin D 25-OH Total ?LAB: TSH reflex Free T4 ?LAB: UA ClnCatch+Micro w/rflx Cult (Collection Date & Time - 01/12/2025 08:00 AM) 4.?Acquired hypothyroidism?LAB: Complete Blood Count Auto Diff (Collection Date & Time - 01/12/2025 08:00 AM) ?LAB: Comprehensive [facility]. Panel Fast ?LAB: Lipid Panel ?LAB: Vitamin D 25-OH Total ?LAB: TSH reflex Free T4 ?LAB: UA ClnCatch+Micro w/rflx Cult (Collection Date & Time - 01/12/2025 08:00 AM) * Procedure Codes:?72331 VENIP UNCT, ROUTINE* * * The named appointment provid er may or may not be the originator of this progress note, and it is not deemed complete until electronically signed by the appointment provider. Sign off status: Pending * Provider:?Andrew Waldrop MD Date:?0 01/12/2025 Generated for Vinita gracia/Jeet/eTbhargaviitting on:?01/12/2025 10:42 AM EDT
--- OUTSIDE RECORDS SUMMARY | 2025-01-12 10:42 | XMS_ITS | Patient Health Record ---
Author Organization Andrew Waldrop MD Address [address] [place], [place] [id number] Care Team Providers Care Internet Sourcer Name Role Phone Andrew Waldrop Primary Care Provider Allergies Allergen (clinical drug ingredient) Drug/Non Drug Allergy documented on EMR Reaction Allergy Type Onset Date Status penicillin G Penicillin G Potassium rash Drug Allergy Active Results Component Value Reference Range Notes Complete Blood Count Auto Di ff (Not yet reviewed by provider) Interpretation: Performing Lab:[facility], [address] [place] [phone] Notes/Report: White Blood Count 8.3 4.8-10.8 X10*3/uL [...] (Not yet reviewed by provider) Interpretation: Performing Lab:[facility], [address] [place] [phone] Notes/Report: Urine, Clean Catch Color Urine Yellow Appearance Urine Clear PH 6.5 5.0-9.0 Glucose Urine UA Negative Negative mg/dL Urine Blood Negative Negative Specific Castaner - Urine <= 1.005 1.005-1.025 Urine Protein Negative Neg-Trace mg/dL Urine Ketones Negative Negative mg/dL Nitrite Urine Negative Negative Leukocyte Esterase Urine Negative Negative RBC Urine 0-2 0-2 /HPF WBC Urine 0-5 0-5 /HPF Squamous Epithelial Cell Urine 0-2 0-2 /HPF Bacteria Urine None Seen None Seen Hyaline Casts Urine 0-2 0-2 /LPF Liver Panel Reviewed date:07/20/2024 05:36:54 PM Interpretation: Performing Lab:[facility], [address] [place] [phone] Notes/Report: Bilirubin Total 0.6 0.0-1.0 mg/dL Bilirubin Direct 0.2 0.0-0.5 mg/dL Aspartate Amino Transferase 26 5-31 U/L Alanine Aminotransferase 16 0-31 U/L Total Protein 6.8 6.5-8.0 g/dL Albumin Level 3.9 3.5-5.0 g/dL Alkaline Phosphatase 82 39-117 U/L Lipid Panel Reviewed date:07/20/2024 05:36:26 PM Interpretation: Performing Lab:[facility], [address] [place] [phone] Notes/Report: Triglycerides 61 <150 mg/dL Desirable Triglyceride: [...] T4 Reviewed date:07/20/2024 05:36:18 PM Interpretation: Performing Lab:[facility], [address] [place] [phone] Notes/Report: TSH reflex Free T4 0.73 0.32-4.0 uIU/mL XR DEXA axial skeleton Reviewed date:02/25/2024 08:03:03 AM Interpretation: Performing Lab: Notes/Report: [address] [place] [address] Mammography Report Signed Patient: Lily Feliz MR#: [id number] : 1950 Acct:[id number] Age/Sex: 73 / F ADM Date: 02/24/24 Loc: HO.MAMMO Attending Dr: Andrew Waldrop MD Ordering Physician: Andrew Waldrop MD Results: Date of Service: 02/24/24 Follow Up: Procedure(s): XR DEXA axial skeleton Accession Number(s): [id number] cc: Andrew Waldrop MD EXAMINATION: BONE DENSITOMETRY CLINICAL INDICATION: Other specified disorders of bone density and structure, right thigh. COMPARISON: Previous BD dated 12/17/2020 and baseline BD dated 11/16/2017. TECHNIQUE: Using a [employer] DXA System (software version: 13.1) manufactured by [employer], dual-energy x-ray absorptiometry was performed of the [...] in OV> 02/24/24 1445 DD/ 0855 TD/TT: Geoscience Professor: BATOOL [place] [facility] [address] [place] [address] Mammography Report Signed Patient: Lily Feliz MR#: [id number] : 1950 Acct:[id number] Age/Sex: 73 / F ADM Date: 02/24/24 Loc: HO.MAMMO Attending Dr: Andrew Waldrop MD Ordering Physician: Andrew Waldrop MD Results: Date of Service: 02/24/24 Follow Up: Procedure(s): XR DEX A axial skeleton Accession Number(s): [id number] cc: Andrew Waldrop MD EXAMINATION: BONE DENSITOMETRY CLINICAL INDICATION: Other specified disorders of bone density and structure, right thigh. COMPARISON: Previous BD dated 12/17/2020 and baseline BD dated 11/16/2017. TECHNIQUE: Using a [employer] Advance DXA System (software version: 13.1) manufactured by [employer], dual-energy x-ray absorptiometry was performed of the [...] in OV> 02/24/24 1445 DD/ 0855 TD/TT: Geoscience Professor: BATOOL MM tomosynthesis screening B I Reviewed date:06/02/2024 01:45:51 PM Interpretation: Performing Lab: Notes/Report: [address] [place] [address] Mammography Report Signed Patient: Lily Feliz MR#: [id number] : 1950 Acct:[id number] Age/Sex: 74 / F ADM Date: 05/22/24 Loc: HO.MAMMO Attending Dr: Andrew Waldrop MD Ordering Physician: Andrew Waldrop MD Results: 1Ne gative Date of Service: 05/22/24 Follow Up: 1 Year From [facility] ina Mammogram Procedure(s): MM tomosynthesis screening BI Accession Number(s): [id number] cc: Andrew Waldrop MD EXAMINATION: MM SCREENING [...] 06/02/24 1002 DD/ 1000 TD/TT: 05/22/24 1013 Geoscience Professor: [place] [facility]'s [address] [place] [address] Mammography Report Signed Patient: Lily Feliz MR#: [id number] : 1950 Acct:[id number] Age/Sex: 74 / F ADM Date: 05/22/24 Loc: HO.MAMMO Attending Dr: Andrew Waldrop MD Ordering Physician: Andrew Waldrop MD Results: 1Ne gative Date of Service: 05/22/24 Follow Up: 1 Year From [facility] in[facility] Mammogram Procedure(s): MM tomosynthesis screening BI Accession Number(s): [id number] cc: Andrew Waldrop MD EXAMINATION: MM SCREENING [...] Danielle Tanner DO 06/02/2024 10:02 AM EDT Dictated By: Danielle Tanner DO Signed By: <Electronically signed by Danielle Tanner DO in OV> 06/02/24 1002 DD/ 1000 TD/TT: 05/22/24 1013 Geoscience Professor: Bryan Santana Reviewed date:07/20/2024 01:49:31 PM Interpretation: Performing Lab:[address] [phone] Notes/Report: Bryan Santana See Note Specimen held untested for 24 hours; Call to request Chemistry testing. Bryan Santana (Not yet reviewed by provider) Interpretation: Performing Lab:[address] [phone] Notes/Report: Bryan Santana See Note Specimen held [...] Administer ed Covid Vaccine Unknown 11/02/2020 Administered Cook Covid Vaccine Unknown 12/02/2020 Administered Moderna Influenza [...] Problem Status W/U Status Risk Notes Problem PVC (premature ventricular contraction) (I49.3) Active confirmed Problem 94109193 Vitamin D defici ency (E55.9) Active confirmed Problem Anxiety (17466518) Anxiety (F41.9) Active confirmed Problem 1679768 Panlobular emphy sema (J43.1) Active confirmed Problem 661235460 Other specified menopausal and perimenopausal disorders (N95.8) Active confirmed Problem 432401167 Acquired hypothy roidism (E03.9) Active confirmed Problem 14442593 Labile hypertens ion (I10) Active confirmed Problem 563173160 Lung nodules (R91.8) Active confirmed Problem 929701674 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) Active confirmed Problem 2805472 Former smoker (Z87.891) Active confirme d Problem 631296458 Family history o f hypothyroidism (Z83.49) Active confirmed Problem 292973537 Pure hypercholesterolemia (E78.00) Active confirmed Problem Microscopic camacho turia (R31.29) Active confirmed Problem 221230562 Osteopenia of ri ght hip (M85.851) Active confirmed Vital Signs Blood pressure diastolic 94 mm Hg 07/20/2024 Height 60 in 07/20/2024 Blood pressure systolic 132 mm Hg 07/20/2024 Weight 203 lbs 07/20/2024 BMI 39.64 kg/m2 07/20/2024 Encounters Encounter Location Date Provider Diagnosis Andrew Waldrop MD [address] [place] [id number] 01/12/2025 Andrew Waldrop Labile hypertension I10 ; Pure hypercholesterolemia E78.00 ; Vitamin D deficiency E55.9 and Acquired hypothyroidism E03.9 Andrew Waldrop MD [address] [place] [id number] 01/17/2024 Andrew Waldrop Osteopenia of right hip M85.851 ; Panlobular emphysema J43.1 ; Acquired hypothyroidism E03.9 ; Vitamin D deficiency E55.9 ; Pure hypercholesterolemia E78.00 ; Labile hypertension I10 and Depression screening Z13.31 Andrew Waldrop MD [address] [place] [id number] 07/20/2024 Andrew Waldrop Panlobular emphysema J43.1 ; Osteopenia of right hip M85.851 ; Acquired hypothyroidism E03.9 ; Encounter for immunization Z23 ; Pure hypercholesterolemia E78.00 and Labile hypertension I10 Andrew Waldrop MD [address] [place] [id number] 02/25/2024 Andrew Waldrop Osteopenia of right hip M85.851 and Vitamin D deficiency E55.9 Andrew Waldrop MD [address] [place] [id number] 07/21/2024 Andrew Waldrop Assessments Encounter Date Diagnosis (ICD Code) Assessment Notes Treatment Notes Treatment Clinical Notes Section Notes 01/12/2025 Labile hypertension (ICD-10 - I10) 01/17/2024 Osteopenia of right hip (ICD-10 - M85.851) THE ORDER WAS FAXED TO [facility] , PATIENT IS AWARE 01/17/2024 Panlobular emphysema (ICD-10 - J43.1) stable, will continue to monitor 07/20/2024 Panlobular emphysema (ICD-10 - J43.1) instructed in use of inhaler 07/20/2024 Osteopenia of right hip (ICD-10 - M85.851) no need for treatment 02/25/2024 Osteopenia of right hip (ICD-10 - M85.851) order made and printed and put into the future folder for 01/12/2025 Pure hypercholesterolemia (ICD-10 - E78.00) 01/17/2024 Acquired hypothyroid ism (ICD-10 - E03.9) doing well, will continue current regiment 07/20/2024 Acquired hypothyroid ism (ICD-10 - E03.9) will recheck , pending lab, will contiue current regiment 02/25/2024 Vitamin D deficiency (ICD-10 - E55.9) 01/12/2025 Vitamin D deficiency (ICD-10 - E55.9) 01/17/2024 Vitamin D deficiency (ICD-10 - E55.9) stable, will continue current regiment 07/20/2024 Encounter for immunization (ICD-10 - Z23) flu vaccine administered 01/12/2025 Acquired hypothyroid ism (ICD-10 - E03.9) 01/17/2024 Pure hypercholesterolemia (ICD-10 - E78.00) stable, [...] Electrocardiogram (EKG) 11/10/2018 BONE DENSITY DEXA 01/17/2024 Complete Blood Count Auto Diff 5 Comprehensive [place]. Panel Fast 5 Lipid Panel 01/12/2025 Vitamin D 25-OH Total 01/12/2025 TSH reflex Free T4 01/12/2025 Hold Gold 01/12/2025 CT chest wo con 03/20/2021 XR DEXA axial skeleton 11/22/2020 XR DEXA axial skeleton 02/25/2024 UA ClnCatch+Micro w/rflx Cult 01/12/2025 Future Test Test Name Order Date CT CHEST NO CONTRAST 03/19/2021 CT chest wo con 03/23/2023 Next Appt Details Provider Name:Andrew Delacruz ier, 01/19/2025 10:00:00 AM, [address] [place] [address], [address], [place], [place], [phone], Insurance Providers Payer Name Payer Address Payer Phone Subscriber Number Group Number Insured Name Patient Relationship to Insured Coverage Start Date Coverage End Date MEDICARE NHIC [place] [address] [place] [address] [id number] Lily Feliz Self - patient is the insured [address] [place] [address] [address] [place] [id number] Lily Feliz Self - patient is the insured 6 Medical (General) History Medical History History ICD Code hematuria work up [address] [address] Anay Camarena; pap smear 06/07 (Neg); 07/2013 Colonoscopy 2005; Colonoscopy 05/08/16 w/D leda Arnold (repeat 10 years) cad on ct of chest 2016 refuses bisphosphanate adult lung cancer screeing program at [facility]
--- OUTSIDE RECORDS SUMMARY | 2025-01-12 10:42 | XMS_ITS ---
Author Organization Andrew Waldrop MD Address [address] [place], [place] [id number] Care Team Providers Care Able Bodied Seaman Name Role Phone Andrew Waldrop Primary Care Provider Allergies Allergen (clinical drug ingredient) Drug/Non Drug Allergy documented on EMR Reaction Allergy Type Onset Date Status penicillin G Penicillin G Potassium rash Drug Allergy Active Results Component Value Reference Range Notes Liver Panel Reviewed date:07/20/2024 05:36:54 PM Interpretation: Performing Lab:[facility], [address] [place] [phone] Notes/Report: Bilirubin Total 0.6 0.0-1.0 mg/dL Bilirubin Direct 0.2 0.0-0.5 mg/dL Aspartate Amino Transferase 26 5-31 U/L Alanine Aminotransferase 16 0-31 U/L Total Protein 6.8 6.5-8.0 g/dL Albumin Level 3.9 3.5-5.0 g/dL Alkaline Phosphatase 82 39-117 U/L Lipid Panel Reviewed date:07/20/2024 05:36:26 PM Interpretation: Performing Lab:[facility], [address] [place] [phone] Notes/Report: Triglycerides 61 <150 mg/dL Desirable Triglyceride: [...] T4 Reviewed date:07/20/2024 05:36:18 PM Interpretation: Performing Lab:[facility], [address] [place] [phone] Notes/Report: TSH reflex Free T4 0.73 0.32-4.0 [...] [address] [place], [place] [phone] 07/20/2024 Andrew Waldrop Panlobular emphysema J43.1 ; [...] 6 Months, Reason: comp Provider Name:Andrew dia, 01/19/2025 10:00:00 AM, [address] [place] [address], [facility] [address], [place], [place], [phone], Progress Notes * Mora TOWNSENDOB:1950 ([age] yo F)Acc No.[id number]:07/20/2024 Progress Notes Patient:?Lily Townsend Provider:?Andrew Waldrop MD :1950???Age:74 Y???Sex:Female D ate:07/20/2024 Address:[address] [place], [place] [address], [phone] Subjective: * Chief Complaints: * ???6 MO [...] the patient * Allergies:?Penicillin G Pota ssium: rashyes[Allergies Verified] Objective: * Vitals:?Ht: 60, Wt:203, BMI: [...] Karen Beltran on Right Deltoid * Procedure Codes:?34000 FLU V ACC PRSV FREE INC [id number] VENIPUNCT, ROUTINE*G0008 ADMN FLU VAC NO FEE SCHED SAME DAY * Preventive Medicine:? ??Immunizations:?Influenza?Have you had a flu shot since the most recent May 07??Yes.? * Follow Up:?6 Months (Reason: comp) * * Sign off status: Completed true * Provider:?Andrew Waldrop MD Date:?09/19/2023 Generated for Vinita gracia/Jeet/Cyndismitting on:?01/12/2025 10:42 AM EDT History and Physical Notes * [...]
[2025-01-12 11:20] LABS: Alanine Aminotransferase 15 U/L (0-31); Albumin Level 3.7 g/dL (3.5-5.0); Alkaline Phosphatase 84 U/L (39-117); Anion Gap 11 (12-20); Aspartate Amino Transferase 23 U/L (5-31); Bilirubin Total 0.5 mg/dL (0.0-1.0); Blood Urea Nitrogen 16 mg/dL (9-16); Calcium 8.6 mg/dL (8.4-10.2); Carbon Dioxide 27 mmol/L (22-29); Chloride 103 mmol/L (96-108); Cholesterol 149 mg/dL (<200); Estimated Glomerular Filt Rate > 60; Glucose Fasting 83 mg/dL (60-99); HDL Cholesterol 63 mg/dL (>40); LDL Cholesterol Calculated 74 mg/dL (<100); Potassium 3.7 mmol/L (3.3-5.1); Sodium 137 mmol/L (135-145); Total Protein 6.4 g/dL (6.5-8.0); Triglycerides 62 mg/dL (<150)
[2025-01-12 11:30] LABS: TSH reflex Free T4 2.95 uIU/mL (0.32-4.0)
== END 2025-01-12 10:13 | disposition home or self-care (01) ==
LOC: HO.LNP 10:12
PROVIDERS: Visit Provider Internal Medicine
DX: E78.00 Pure hypercholesterolemia, unspecified (principal); E55.9 Vitamin D deficiency, unspecified; E03.9 Hypothyroidism, unspecified; I10 Essential (primary) hypertension
CPT/HCPCS: 80053; 80061; 81001; 82306; 84443; 85025

== ENCOUNTER 2025-05-28 09:44 | Outpatient (REF) | payer MEDICARE, OTHER, SELFPAY ==
--- OUTSIDE RECORDS SUMMARY | 2021-05-15 10:52 | XMS_ITS | Encounter Summary ---
Author Organization [facility] Address [address] [place] [phone] Phone Care Team Providers Care Engine Room Helper Name Role Phone Andrew Waldrop MD Primary Care Provider Encounter Details Date Type Department Care Team ([facility] st Contact Info) Description 05/15/2021 10:52 AM EDT Hospital Encounter [facility] [address] [place] [phone] Benton Faustin PA [address] [place] [phone] [email or web address] Social History Tobacco Use Types Packs/Day [...] documented as of this encounter Care Teams Engine Room Helper Relationship Specialty Start Date End Date Andrew Waldrop MD [address] [place] [address] [place] [address] PCP - General 09/09/17 documented as of this encounter Additional Source Comments The information contained in this document represents components of the legal health record. It is not the complete legal health record.[facility]
--- OUTSIDE RECORDS SUMMARY | 2024-07-20 06:00 | XMS_ITS ---
Author Organization Andrew Waldrop MD Address [address] [place], [place] [phone] Care Team Providers Care Audograph Operator Name Role Phone Andrew Waldrop Primary Care Provider Allergies Allergen (clinical drug ingredient) Drug/Non Drug Allergy documented on EMR Reaction Allergy Type Onset Date Status penicillin G Penicillin G Potassium rash Drug Allergy Active Results Component Value Reference Range Notes Liver Panel Reviewed date:07/20/2024 05:36:54 PM Interpretation: Performing Lab:[facility], [address] [place] [phone] Notes/Report: Bilirubin Total 0.6 0.0-1.0 mg/dL Bilirubin Direct 0.2 0.0-0.5 mg/dL Aspartate Amino Transferase 26 5-31 U/L Alanine Aminotransferase 16 0-31 U/L Total Protein 6.8 6.5-8.0 g/dL Albumin Level 3.9 3.5-5.0 g/dL Alkaline Phosphatase 82 39-117 U/L Lipid Panel Reviewed date:07/20/2024 05:36:26 PM Interpretation: Performing Lab:[facility], [address] [place] [phone] Notes/Report: Triglycerides 61 <150 mg/dL Desirable Triglyceride: [...] T4 Reviewed date:07/20/2024 05:36:18 PM Interpretation: Performing Lab:[facility], [address] [place] [phone] Notes/Report: TSH reflex Free T4 0.73 0.32-4.0 [...] Date Provider Diagnosis Andrew Waldrop MD [address] [place], [place] [phone] 07/20/2024 Andrew Waldrop Panlobular emphysema J43.1 ; [...] 6 Months, Reason: comp Provider Name:Andrew dia, 07/19/2025 07:30:00 AM, [address] [place] [address], [address], [phone], Provider Name:Andrew dia, 07/23/2025 10:00:00 AM, [address] [place] [address], [address], [phone], Provider Name:Andrew dia, 01/17/2026 07:15:00 AM, [address] [place] [address], [address], [phone], Provider Name:Andrew dia, 01/24/2026 09:30:00 AM, [address], [address], [place], [phone], Progress Notes * Mora TOWNSENDOB:1950 ([age] yo F)Acc No.[id number]:07/20/2024 Progress Notes Patient: Lily Lind Provider: Javier Waldrop MD :1950 A ge:74 Y S ex:Female Date:07/20/2024 Address:[address] [place], [id number] Subjective: * Chief Complaints: * 6 MO [...] 9 0662 FLU VACC PRSV FREE INC [id number] VENIPUNCT, ROUTINE*G0008 ADMN FLU VAC NO FEE SCHED SAME DAY * Preventive Medicine: Immunizations: I nfluenza H ave you had a flu shot since the most recent May 07? Y es. * Follow Up: 6 Months (Reason: comp) * * Sign off status: Completed true * Provider: Javier Waldrop MD Date: 09/19/2023 Generated for Vinita gracia/Jeet/Carrilloitting on: 0 05/28/2025 11:42 AM EDT History and Physical Notes * HPI (History [...]
--- OUTSIDE RECORDS SUMMARY | 2025-01-12 04:00 | XMS_ITS ---
Author Organization Andrew Waldrop MD Address [address] [place], [place] [id number] Care Team Providers Care Manufacturing Industrial Engineer Name Role Phone Andrew Waldrop Primary Care Provider Results Component Value Reference Range Notes Complete Blood Count Auto Di ff Reviewed date:01/12/2025 12:34:04 PM Interpretation: Performing Lab:[facility], [address] [place] [phone] Notes/Report: White Blood Count 8.3 4.8-10.8 X10*3/uL [...] st Reviewed date:01/12/2025 12:33:44 PM Interpretation: Performing Lab:[facility], [address] [place] [phone] Notes/Report: Sodium 137 135-145 mmol/L Potassium 3.7 [...] Panel Reviewed date:01/12/2025 12:11:30 PM Interpretation: Performing Lab:[facility], [address] [place] [phone] Notes/Report: Triglycerides 62 <150 mg/dL Desirable Triglyceride: [...] Total Reviewed date:01/12/2025 12:20:25 PM Interpretation: Performing Lab:[address] [phone] Notes/Report: Vitamin D 25-OH Total 35.0 >30 [...] T4 Reviewed date:01/12/2025 12:20:59 PM Interpretation: Performing Lab:[facility], [address] [place] [phone] Notes/Report: TSH reflex Free T4 2.95 0.32-4.0 uIU/mL UA ClnCatch+Micro w/rflx Cul t Reviewed date:01/12/2025 12:19:30 PM Interpretation: Performing Lab:[facility], [address] [place] [phone] Notes/Report: Urine, Clean Catch Color Urine Yellow Appearance Urine Clear PH 6.5 5.0-9.0 Glucose Urine UA Negative Negative mg/dL Urine Blood Negative Negative Specific [place] - Urine <= 1.005 1.005-1.025 Urine Protein [...] Location Date Provider Diagnosis Andrew Waldrop MD [address] [place] [phone] 01/12/2025 Andrew Waldrop Labile hypertension I10 ; [...] Treatment Next Appt Details Provider Name:Andrew dia, 07/19/2025 07:30:00 AM, [address] [place] [address], [address], [phone], Provider Name:Andrew dia, 07/23/2025 10:00:00 AM, [address] [place] [address], [address], [phone], Provider Name:Andrew dia, 01/17/2026 07:15:00 AM, [address] [place] [address], [address], [phone], Provider Name:Andrew marmolejor, 01/24/2026 09:30:00 AM, [address], [address], [place], [phone], Progress Notes * Mora FELIZOB:1950 ([age] yo F)Acc No.[id number]:01/12/2025 Progress Note Patient: Lily RANGEL Provider: Javier Waldrop MD :1950 A ge:74 Y S ex:Female Date:01/12/2025 Address:[address] [place], [place] [id number] Subjective: * Chief Complaints: * 1 . [...] 0 01/12/2025 Generated for Vinita gracia/Jeet/Carrilloitting on: 0 05/28/2025 11:41 AM EDT
--- OUTSIDE RECORDS SUMMARY | 2025-01-19 06:00 | XMS_ITS ---
Author Organization Andrew Waldrop MD Address [address] [place], [place] [phone] Care Team Providers Care Leasing Property Manager Name Role Phone Andrew Waldrop Primary Care [...] Location Date Provider Diagnosis Andrew Waldrop MD [address] [place] [address] [place] [phone] 01/19/2025 Andrew Waldrop Panlobular emphysema J43.1 ; [...] Up: 6 Months, Reason: Provider Name:Andrew dia, 07/19/2025 07:30:00 AM, [address] [place] [address], Suite [facility], [place], [place], [phone], Provider Name:Andrew dia, 07/23/2025 10:00:00 AM, [address] [place] [address], [address], [place], [place], [phone], Provider Name:Andrew Delacruz ier, 01/17/2026 07:15:00 AM, [address], [address], [place], [phone], Provider Name:Andrew Delacruz ier, 01/24/2026 09:30:00 AM, [address], [address], [place], [phone], Progress Notes * Mora FELIZOB:1950 ([age] yo F)Acc No.[id number]:01/19/2025 Patient: Sandy SARAHLily Provider: Javier Waldrop MD :1950 A ge:74 Y S ex:Female Date:01/19/2025 Address:[address] [place] [address] [place], [id number] Subjective: * Chief Complaints: * R eview [...] Children: no. Community involvements: yes. Exercise: yes, [facility] Gym bikes legs and sit ups 4 [...] mg/dL Urine Blood Negative Negative - Specific [place] - Urine <= 1.005 1.005-1.025 - Urine [...] Auto 0.000 0.0-0.012 - X10*3/uL L ab:Comprehensive [place]. Panel Fast (Order Date - 01/12/2025) (Collection [...] d ecline. FEMALE GENITOURINARY: d one by voice coach. EXTREMITIES: n o clubbing, cyanosis, or edema. [...] MD Date: 0 01/19/2025 Generated for Vinita gracia/Jeet/eTransmitting on: 0 05/28/2025 11:39 AM EDT History and Physical Notes * [...] Total Score: 0 Interpretation and Intervention Depression Scree bud Findings: Negative Follow-Up for Depression: : review [...] RECTAL EXAM: decline FEMALE GENITOURINARY: done by voice coach ORAL CAVITY: mucosa moist
--- OUTSIDE RECORDS SUMMARY | 2025-03-30 09:12 | XMS_ITS ---
Author Organization Andrew Waldrop MD Address [address] [place] [phone] Care Team Providers Care Coroner Name Role Phone Andrew Waldrop Primary Care Provider [phone] REASON FOR VISIT Chest CT due . Encounters Encounter Location Date Provider Diagnosis Andrew Waldrop MD 10 [facility] [address] [place] [phone] 03/30/2025 Andrew Waldrop Lung nodules R91.8 Assessments [...] Next Appt Details Provider Name:Andrew Delacruz ier, 07/19/2025 07:30:00 AM, [address] [place] [address], [place] [address], [place], [place], [phone], Provider Name:Andrew Delacruz iesonali, 07/23/2025 10:00:00 AM, [facility], [address], [phone], Provider Name:Andrew dia, 01/17/2026 07:15:00 AM, [address], [address], [place], [place], [phone], Provider Name:Andrew Delacruz ier, 01/24/2026 09:30:00 AM, [address], [address], [place], [place], [phone], Progress Notes * Mora TOWNSENDOB:1950 ([age] yo F)Acc No.[id number]:03/30/2025 Patient: Lily RANGEL :1950 A ge:75 Y S ex:Female Address:[address] [place] [address] [place] [phone] Subjective: * Chief Complaints: * C hest CT due . * Medical History: * Surgical History: * Hospitalization/Major Diagno stic Procedure: * Medications: Objective: * Vitals: * Physical Examination: Assessment: * Assessment: 1. L gavi nodules - R91.8 Plan: * Treatment: * Procedure Codes: * true * Date: Generated for Vinita gracia/Jeet/eTransmitting on: 0 05/28/2025 11:41 AM EDT
--- NOTE | ~2025-05-28 | MM_ITS ---
EXAMINATION: MM SCREENING DIGITAL BREAST TOMOSYNTHESIS, BILATERAL CLINICAL INFORMATION: Screening. Asymptomatic. COMPARISON: Comparison made to multiple prior, most recent May 22, 2024, and most remote April 29, 2020. TECHNIQUE: Digital breast tomosynthesis is performed in mediolateral oblique and craniocaudal views along with computer-aided detection (CAD). Synthesized 2D images are generated from the tomosynthesis. FINDINGS: BREAST COMPOSITION: The breasts are heterogeneously dense, which may obscure small masses. BILATERAL BREASTS: No significant masses, suspicious calcifications or other abnormalities are seen in either breast. MM/MM tomosynthesis screening BI IMPRESSION: BILATERAL BREASTS: Negative, no mammographic evidence of malignancy. Normal interval follow-up is recommended in 12 months. ASSESSMENT: BI-RADS: Category 1: Negative RECOMMENDATION: Routine annual mammography screening. FOLLOW-UP: 1 year F/U This examination should not preclude the clinical evaluation of a suspicious palpable abnormality. This patient's information was entered into a reminder system with a target due date for their next mammogram. Electronically signed by: Gabriel Olivo MD 05/29/2025 05:51 PM EDT
--- OUTSIDE RECORDS SUMMARY | 2025-05-28 11:41 | XMS_ITS | Patient Health Record ---
Author Organization [facility] Address [address] [place] [address] Care Team Providers Care Hand Coper Name Role Phone Andrew Waldrop MD Primary Care Provider Darnell Blackwood Jr Unavailable [phone] Allergies Allergen (clinical drug ingredient) Drug/Non Drug Allergy documented on EMR Reaction Allergy Type Onset Date Status Penicillin Unknown Drug Allergy Active seasonal (uncoded) Unknown Allergy A ctive Reason For Referral No Information Medications Medication SIG (Take, Route, Frequency, Duration) Notes Start Date End Date Status Flonase 50 MCG/ACT 1 spray in each nost ril Nasally Once a day Active Colyte with Flavor Packs 240 GM As directed Orally Over the specified time. for 1 day(s) 02/05/2016 Active Problems Problem Type SNOMED Code ICD Code Onset Dates Problem Status W/U Status Risk Notes Problem 956599033 Colon cancer screening (Z12.11) Active confirmed Problem 01258126 Encounter for other preprocedural examination (Z01.818) Active confirmed Plan Of Treatment Future Test Test Name Order Date COLONOSCOPY 02/05/2016 Insurance Providers Payer Name Payer Address Payer Phone Subscriber Number Group Number Insured Name Patient Relationship to Insured Coverage Start Date Coverage End Date [facility] [address] [place] [phone] [id number] REMIGIO TOWNSEND Self - patient is the insured Medical (General) History Medical History History ICD Code 7-2005 colonoscopy colon polyp, hyperplastic sinusitis COPD Denies [place],DM,CVA,renal disease Surgical History Surgery Date(Month/Year) urethral surgery tonsillectomy throat polyp removal rectal abscess incision and drainage
--- OUTSIDE RECORDS SUMMARY | 2025-05-28 11:41 | XMS_ITS | Clinical Summary ---
Author Organization [facility] Address [address] [place] [phone] Phone Care Team Providers Care Library Media Specialist Name Role Phone Andrew Waldrop MD Primary Care Provider Allergies Active Allergy Reactions Criticality Noted Date Comments Clindamycin Hcl 07/03/2023 Penicillin G Potassium Rash Low 12/10/2023 Penicillins Unknown 05/22/2015 Perfume Unknown 05/22/2015 Medications levothyroxine (SYNTHROID, LEVOTHROID) 88 MCG tablet 1 Active aspirin 81 MG EC tablet Take 81 mg by mouth daily. Active cholecalciferol (VITAMIN D3) 25 MCG (1,000 unit) tablet Take 1,000 Units by mouth every other day. Active predniSONE (DELTASONE) 20 MG tablet Take 3 PO qd x3 days, then 2 PO qd x3 days, then 1 PO qd x3 days, then 1/2 tablet PO qd x4 days 20 tablet 3 Active Additional Information Patient not taking.Reported on 12/10/2023 albuterol 90 mcg/actuation inhaler Inhale 2 puffs into the lungs every 6 (six) hours as needed for wheezing. 6.7 g 3 Active Additional Information Patient not taking.Reported on 12/10/2023 ibuprofen (ADVIL) 200 MG tablet 1 tablet as needed Orally every 6 hrs Active levothyroxine (SYNTHROID, LEVOTHROID) 88 MCG tablet Take 1 tablet by mouth Medrol Dose Pack use ONLY. Active metoprolol succinate (TOPROL-XL) 50 MG 24 hr tablet Take 1 tablet by mouth daily. Active atorvastatin (LIPITOR) 40 MG tablet Take 1 tablet by mouth daily. Active benzonatate (TESSALON) 100 MG capsule Take 2 capsules (200 mg total) by mouth 3 (three) times a day as needed for cough. 21 capsule 4 Active albuterol (PROAIR HFA) 90 mcg/actuation inhaler Inhale 2 puffs into the lungs every 4 (four) hours as needed for wheezing. 18 g 4 Active inhaler spacing device (AEROCHAMBER,BR EATHERITE) Spcr Inhale 1 each into the lungs every 4 (four) hours as needed. 1 each 4 Active Active Problems No known active problems Immunizations Immunization Administration Dates Next Due COVID-19 (Pre-06/28) Moderna Vaccine, mRNA, PF 12/02/2020,11/02/2020 INFLUENZA, SPLIT VIRUS, TRIVALENT PF ,05/16/2018,05/07/2017,07/16 Influenza High-Dose Trivalen t Preservative Free IM 05/09/2020 Pneumococcal conjugate PCV13 10/28/2015 Pneumococcal polysaccharide PPSV23 11/13/2019 Social History Tobacco Use Types Packs/Day Years [...] on file Sexual Orientation Not on file Last Filed Vital Signs Vital Sign Reading Time Taken Comments Blood Pressure 149/82 12/10/2023 11:30 AM EDT Pulse 77 12/10/2023 11:30 AM EDT Temperature 36.7 C (98.1 F) 12/10/2023 11:30 AM EDT Respiratory Rate 21 12/10/2023 11:30 AM EDT Oxygen Saturation 93% 12/10/2023 11:30 AM EDT Inhaled Oxygen Concentration - - Weight 86.2 kg (190 lb) 12/10/2023 11:30 AM EDT Height 157.5 cm (5' 2 ) 12/10/2023 11:30 AM EDT Body Mass Index 34.75 12/10/2023 11:30 AM EDT Plan of Treatment Health Maintenance Due Date Last Done Comments Adult Td,Tdap Booster 1951 LIPID PANEL 1951 TSH LEVEL 1951 DEPRESSION SCREENING 1963 SMOKING Hx and SMOKELESS TOBACCO SCREENING 1964 HEPATITIS C SCREENING 1969 MAMMOGRAM 1991 COLOGUARD 1996 COLONOSCOPY 1996 COLORECTAL CANCER SCREENING 1996 FIT TEST 1996 FOBT 1996 SIGMOIDOSCOPY 1996 VIRTUAL COLONOSCOPY 1996 ZOSTER VACCINES (1 of 2) 2001 OSTEOPOROSIS SCREENING INITIAL (ONE-TIME) 2016 PAP SMEAR 07/29/2021 05/22/2015 INFLUENZA VACCINE (#1) 2025 , 05/15/2022, 05/30/2021, Additional history exists COVID-19 VACCINE ( season) 2025 06/16/2022, 06/16/2022, 12/18/2021, Additional history exists RSV VACCINE (1 - 1-dose 75+ series) 2026 PNEUMOCOCCAL VACCINES (50+ years) Completed 11/13/2019, 10/28/2015 HEPATITIS A VACCINES Aged Out No long er eligible based on patient's age to complete this topic HIB VACCINES Aged Out No longer eligi ble based on patient's age to complete this topic MENINGOCOCCAL VACCINES (ACWY) Aged Out No longer eligible based on patient's age to complete this topic MENINGOCOCCAL VACCINES (B) Aged Out N o longer eligible based on patient's age to complete this topic Medical Devices Not on file Procedures Procedure Name Priority Date/Time Associated Diagnosis Comments HM PAP SMEAR FOR RESULT ENTRY ONLY Routine 05/22/2015 from Last 3 Months or Most Recently Relevant to Health Maintenance Results * PAP SMEAR FOR RESULT ENTRY ONLY (05/22/2015) Pap smear NIL, HPV Negative (-16/-18) us Historical Provider MD HEALTH MAINTENANCE Final Result from Last 3 Months or Most Recently Relevant to Health Maintenance Insurance MEDICARE PART A & B [id number] [place] [address] MEDICARE SUPPLEMENT MEDICARE PART A & B ED [facility] MEDICARE SUPPLEMENT MEDICARE PART A & B ED [facility] MEDICARE SUPPLEMENT MEDICARE PART A & [place] [address] [place] [address] MEDICARE SUPPLEMENT MEDICARE PART A & B MEDICARE SUPPLEMENT MEDICARE PART A & B Member Subscriber Plan / Payer ( fective 2016-Present) Name:Lily Feliz Member ID:[id number] Relation to Subscriber:Self Name:Lily Feliz Subscriber ID:[id number] Payer ID:[id number] Group ID:Not on file Type:Medicare Address: [employer] [address] MEDICARE SUPPLEMENT MEDICARE PART A & B MEDICARE SUPPLEMENT MEDICARE PART A & B MEDICARE SUPPLEMENT MEDICARE PART A & B MEDICARE SUPPLEMENT Care Teams Library Media Specialist Relationship Specialty Start Date End Date Andrew Waldrop MD [address] [place] [phone] PCP - General 09/09/17 Additional Source Comments The information contained in this document represents components of the legal health record. It is not the complete legal health record.[facility]
--- OUTSIDE RECORDS SUMMARY | 2025-05-28 11:42 | XMS_ITS | Patient Health Record ---
Author Organization Andrew Waldrop MD Address [address] [place], [place] [id number] Care Team Providers Care Medical Illustrator Name Role Phone Andrew Waldrop Primary Care Provider [phone] Allergies Allergen (clinical drug ingredient) Drug/Non Drug Allergy documented on EMR Reaction Allergy Type Onset Date Status penicillin G Penicillin G Potassium rash Drug Allergy Active Results Component Value Reference Range Notes Complete Blood Count Auto Di ff Reviewed date:01/12/2025 12:34:04 PM Interpretation: Performing Lab:[facility], [address] [place] [phone] Notes/Report: White Blood Count 8.3 4.8-10.8 X10*3/uL [...] NRBC Abs Auto 0.000 0.0-0.012 X10*3/uL Comprehensive [place]. Panel Fa Reviewed date:01/12/2025 12:33:44 PM Interpretation: Performing Lab:[address] [phone] Notes/Report: Sodium 137 135-145 mmol/L Potassium 3.7 [...] Panel Reviewed date:01/12/2025 12:11:30 PM Interpretation: Performing Lab:[address] [phone] Notes/Report: Triglycerides 62 <150 mg/dL Desirable Triglyceride: [...] Total Reviewed date:01/12/2025 12:20:25 PM Interpretation: Performing Lab:[address] [phone] Notes/Report: Vitamin D 25-OH Total 35.0 >30 [...] T4 Reviewed date:01/12/2025 12:20:59 PM Interpretation: Performing Lab:[address] [phone] Notes/Report: TSH reflex Free T4 2.95 0.32-4.0 uIU/mL UA ClnCatch+Micro w/rflx Cul t Reviewed date:01/12/2025 12:19:30 PM Interpretation: Performing Lab:[facility], [address] [place] [phone] Notes/Report: Urine, Clean Catch Color Urine Yellow Appearance Urine Clear PH 6.5 5.0-9.0 Glucose Urine UA Negative Negative mg/dL Urine Blood Negative Negative Specific [place] - Urine <= 1.005 1.005-1.025 Urine Protein Negative Neg-Trace mg/dL Urine Ketones Negative Negative mg/dL Nitrite Urine Negative Negative Leukocyte Esterase Urine Negative Negative RBC Urine 0-2 0-2 /HPF WBC Urine 0-5 0-5 /HPF Squamous Epithelial Cell Urine 0-2 0-2 /HPF Bacteria Urine None Seen None Seen Hyaline Casts Urine 0-2 0-2 /LPF Liver Panel Reviewed date:07/20/2024 05:36:54 PM Interpretation: Performing Lab:[facility], [address] [place] [phone] Notes/Report: Bilirubin Total 0.6 0.0-1.0 mg/dL Bilirubin Direct 0.2 0.0-0.5 mg/dL Aspartate Amino Transferase 26 5-31 U/L Alanine Aminotransferase 16 0-31 U/L Total Protein 6.8 6.5-8.0 g/dL Albumin Level 3.9 3.5-5.0 g/dL Alkaline Phosphatase 82 39-117 U/L Lipid Panel Reviewed date:07/20/2024 05:36:26 PM Interpretation: Performing Lab:[address] [phone] Notes/Report: Triglycerides 61 <150 mg/dL Desirable Triglyceride: [...] T4 Reviewed date:07/20/2024 05:36:18 PM Interpretation: Performing Lab:[facility], [address] [place] [phone] Notes/Report: TSH reflex Free T4 0.73 0.32-4.0 uIU/mL Bryan Santana Reviewed date:07/20/2024 01:49:31 PM Interpretation: Performing Lab:[facility], [address] [place] [phone] Notes/Report: Bryan Santana See Note Specimen held untested for 24 hours; Call to request Chemistry testing. Bryan Santana Reviewed date:01/12/2025 12:11:15 PM Interpretation: Performing Lab:[facility], [address] [place] [phone] Notes/Report: Bryan Santana See Note Specimen held untested for 24 hours; Call to request Chemistry testing. Reason For Referral No Information Medications Medication SIG (Take, Route, Frequency, Duration) Notes Start Date End Date Status Atorvastatin Calcium 40 MG TAKE 1 TABLET BY MOUTH EVERY DAY Orally Once a day for 90 days Active Vitamin D (Cholecalciferol) 1000 UNIT 1 tablet Orally Once a day 11/11/2016 Active Levothyroxine Sodium 88 MCG TAKE 1 TABLET BY MOUTH EVERY DAY IN THE MORNING ON AN EMPTY STOMACH for 90 Active Advil 200 MG 1 tablet as needed Orally every 6 hrs Not-Taking Metoprolol Succinate ER 50 MG TAKE 1 TABLET BY MOUTH EVERY DAY for 90 Active Ativan 0.5 MG 1 tablet as needed Orally every 6 hrs for 5 days 05/07/2017 Not-Taking Aspirin 81 MG 1 tablet Orally Once a day for 30 day(s) 02/10/2018 Active Immunizations Vaccine Route Administration Date Status [...] Administer ed Covid Vaccine Unknown 11/02/2020 Administered Randolph Covid Vaccine Unknown 12/02/2020 Administered Moderna Influenza [...] Risk Notes Problem 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) PVC (premature ventricular contraction) (I49.3) Active confirmed Problem 67661215 Vitamin D defici ency (E55.9) Active confirmed Problem Anxiety (59454310) Anxiety (F41.9) Active confirmed Problem 4526443 Panlobular emphy sema (J43.1) Active confirmed Problem 702603453 Other specified menopausal and perimenopausal disorders (N95.8) Active confirmed Problem 425075780 Acquired hypothy roidism (E03.9) Active confirmed Problem 49155776 Labile hypertens ion (I10) Active confirmed Problem 902203486 Lung nodules (R91.8) Active confirmed Problem 689561320 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) Active confirmed Problem 7659124 Former smoker (Z87.891) Active confirme d Problem 858334426 Family history o f hypothyroidism (Z83.49) Active confirmed Problem 316059732 Pure hypercholesterolemia (E78.00) Active confirmed Problem 235967384 Microscopic camacho turia (R31.29) Active confirmed Problem 453408979 Osteopenia of ri ght hip (M85.851) Active confirmed Vital Signs Blood pressure diastolic 82 mm Hg 01/19/2025 sara ght is up 6 pounds since 07-20-24 Height 60 in 01/19/2025 weight is up 6 pounds since 07-20-24 Blood pressure systolic 140 mm Hg 01/19/2025 weig ht is up 6 pounds since 07-20-24 Weight 209 lbs 01/19/2025 weight is up 6 pounds since 07-20-24 BMI 40.81 kg/m2 01/19/2025 weight is up 6 pounds since 07-20-24 Encounters Encounter Location Date Provider Diagnosis Andrew Waldrop MD [address] [place] [id number] 01/12/2025 Andrew Waldrop Labile hypertension I10 ; Pure hypercholesterolemia E78.00 ; Vitamin D deficiency E55.9 and Acquired hypothyroidism E03.9 Andrew Waldrop MD [address] [place] [id number] 07/20/2024 Andrew Waldrop Panlobular emphysema J43.1 ; Osteopenia of right hip M85.851 ; Acquired hypothyroidism E03.9 ; Encounter for immunization Z23 ; Pure hypercholesterolemia E78.00 and Labile hypertension I10 Andrew Waldrop MD [address] [place] [id number] 01/19/2025 Andrew Waldrop Panlobular emphysema J43.1 ; Pure hypercholesterolemia E78.00 ; Lung nodules R91.8 ; Labile hypertension I10 ; Acquired hypothyroidism E03.9 and Vitamin D deficiency E55.9 Andrew Waldrop MD [address] [place] [address] [id number] 07/21/2024 Andrew Waldrop MD [address] [place], [place] [id number] 03/30/2025 Andrew Waldrop Lung nodules R91.8 Assessments Encounter Date Diagnosis (ICD Code) Assessment Notes Treatment Notes Treatment Clinical Notes Section Notes 01/12/2025 Labile hypertension (ICD-10 - I10) 07/20/2024 Panlobular emphysema (ICD-10 - J43.1) instructed in use of inhaler 07/20/2024 Osteopenia of right hip (ICD-10 - M85.851) no need for treatment 01/19/2025 Panlobular emphysema (ICD-10 - J43.1) stable, will continue current regiment 03/30/2025 Lung nodules (ICD-10 - R91.8) Order made and put into the Future order folder for . 01/12/2025 Pure hypercholesterolemia (ICD-10 - E78.00) 07/20/2024 Acquired hypothyroid ism (ICD-10 - E03.9) will recheck , pending lab, will contiue current regiment 01/19/2025 Pure hypercholesterolemia (ICD-10 - E78.00) doing well, will continue current regiment 01/12/2025 Vitamin D deficiency (ICD-10 - E55.9) 07/20/2024 Encounter for immunization (ICD-10 - Z23) flu vaccine administered 01/19/2025 Lung nodules (ICD-10 - R91.8) followed with cat scan 01/12/2025 Acquired hypothyroid ism (ICD-10 - E03.9) 07/20/2024 Pure hypercholesterolemia (ICD-10 - E78.00) will recheck, pending labs, will cntiue current regiment 01/19/2025 Labile hypertension (ICD-10 - I10) stable, will continue current regiment 07/20/2024 Labile hypertension (ICD-10 - I10) stable, will continue current regiment 01/19/2025 Acquired hypothyroid ism (ICD-10 - E03.9) doing well, will continue current regiment 01/19/2025 Vitamin D deficiency (ICD-10 - E55.9) stable, will continue current regiment Plan Of Treatment Pending Test Test Name Order Date Electrocardiogram (EKG) 11/04/2017 Electrocardiogram (EKG) 11/10/2018 BONE DENSITY DEXA 01/17/2024 CT chest wo con 03/20/2021 CT chest wo con 03/30/2025 XR DEXA axial skeleton 02/25/2024 XR DEXA axial skeleton 11/22/2020 Future Test Test Name Order Date CT CHEST NO CONTRAST 03/19/2021 CT chest wo con 03/23/2023 Next Appt Details Provider Name:Andrew Delacruz ier, 07/19/2025 07:30:00 AM, [address] [place] [address], [address] [place] [address], [phone], Provider Name:Andrew Delacruz ier, 07/23/2025 10:00:00 AM, [address] [place] [address], [address], [place], [id number], Provider Name:Andrew Delacruz ier, 01/17/2026 07:15:00 AM, [address] [place] [address], [address] [place] [address], [phone], Provider Name:Andrew Delacruz ier, 01/24/2026 09:30:00 AM, [address] [place] [address], [address] [place] [address], [phone], Insurance Providers Payer Name Payer Address Payer Phone Subscriber Number Group Number Insured Name Patient Relationship to Insured Coverage Start Date Coverage End Date [employer] [address] [place] [address] [id number] Lily Feliz Self - patient is the insured [address] [place] [phone] [id number] Lily Feliz Self - patient is the insured 6 Medical (General) History Medical History History ICD Code hematuria work up [address] [address] [address] Anay Camarena; pap smear 06/07 (Neg); 07/2013 Colonoscopy 2005; Colonoscopy 05/08/16 w/D r. Clayton (repeat 10 years) cad on ct of chest 2016 refuses bisphosphanate adult lung cancer screeing program at [facility]
== END 2025-05-28 09:45 | disposition home or self-care (01) ==
LOC: HO.MAMMO 09:44
PROVIDERS: PCP Internal Medicine; Visit Provider Internal Medicine
DX: Z12.31 Encounter for screening mammogram for malignant neoplasm of breast (principal)
CPT/HCPCS: 77063; 77067

== ENCOUNTER → 2025-05-28 10:00 | Outpatient (BNV) | payer MEDICARE, OTHER, SELFPAY | PROVIDERS: PCP Internal Medicine; Visit Provider Radiology Body Imaging | DX: Z12.31 Encounter for screening mammogram for malignant neoplasm of breast (principal) | CPT/HCPCS: 77063; 77067 ==

== ENCOUNTER 2025-07-19 10:43 | Outpatient (REF) | payer MEDICARE, OTHER, SELFPAY ==
--- OUTSIDE RECORDS SUMMARY | 2021-05-15 09:52 | XMS_ITS | Encounter Summary ---
Author Organization [facility] Address [address] [place] [phone] Phone Care Team Providers Care Electric Meter Repairer Name Role Phone Andrew Waldrop MD Primary Care Provider Encounter Details Date Type Department Care Team ([facility] st Contact Info) Description 05/15/2021 10:52 AM EDT Hospital Encounter [facility] [address] [place] [phone] Benton Faustin PA [address] [place] [phone] [email or web address] Social History Tobacco Use Types Packs/Day Years Used Date Smoking Tobacco: Former Cigarettes Q uit: 2016 Smokeless Tobacco: Never Alcohol Use Standard Drinks/Week Comments Yes 0 (1 standard drink = 0.6 oz pur e alcohol) Occasional Education Answer Date Recorded Are you interested in more education? Not on fabienne e 01/01/2023 Are you concerned about learning? Not on file 01/01/2023 No 01/01/2023 No 01/01/2023 Digital Access Answer Date Recorded No 01/30/2023 No 01/30/2023 Reliable internet access at home? Not on file 01/30/2023 Device with a working camera? Not on file Comments No Sex and Gender Information Value Date Recorded Sex Assigned at Not on file Legal Sex Female 10:01 PM EDT Gender Identity Not on file Sexual Orientation Not on file documented as of this encounter Plan of Treatment Not on file documented as of this encounter Procedures Procedure Name Priority Date/Time Associated Diagnosis Comments XR FOOT 3 OR MORE VIEWS (LEFT) Urgent/patient waiting 05/15/2021 10:59 AM EDT Left foot pain documented in this encounter Results * XR FOOT 3 OR MORE VIEWS (LEFT) (05/15/2021 10:59 AM EDT) Anatomical Region Laterality Modality Foot Left Computed Radiogr aphy 05/15/2021 11:0 8 AM EDT Impressions 05/15/2021 11:09 AM EDT No fracture or dislocation. Narrative 05/15/2021 11:09 AM EDT XR FOOT 3 OR MORE VIEWS (LEFT) COMPARISON: None FINDINGS: No fracture. Normal alignment. Normal joint spaces. No soft tissue swelling. Plantar calcaneal spur. Procedure Note Doyle Velazquez MD - 05/15/2021 XR FOOT 3 OR MORE VIEWS (LEFT) COMPARISON: None FINDINGS: No fracture. Normal alignment. Normal joint spaces. No soft tissueswelling. Plantar calcaneal spur. IMPRESSION: No fracture or dislocation. Benton GUSMAN IMG XR LOWER EXTREMITY Ariana l Result documented in this encounter Visit Diagnoses Not on filedocumented in this encounter Additional Health Concerns Infection Onset Date Last Indicated Resolved Time CoV-Risk 07/03/2023 07/03/2023 07/14/2023 1:22 AM EST CoV-Risk 12/10/2023 12/10/2023 12/21/2023 1:22 AM EDT documented as of this encounter Care Teams Electric Meter Repairer Relationship Specialty Start Date End Date Andrew Waldrop MD [address] [place] [address] [place] [phone] PCP - General 09/09/17 documented as of this encounter Additional Source Comments The information contained in this document represents components of the legal health record. It is not the complete legal health record.[facility]
--- OUTSIDE RECORDS SUMMARY | 2024-01-17 05:30 | XMS_ITS ---
Author Organization Andrew Waldrop MD Address [address] [place], [place] [id number] Care Team Providers Care Toy Maker Name Role Phone Andrew Waldrop Primary Care Provider [phone] Allergies Allergen (clinical drug ingredient) Drug/Non Drug Allergy documented on EMR Reaction Allergy Type Onset Date Status penicillin G Penicillin G Potassium rash Drug Allergy Active REASON FOR VISIT review labs, NO Covid symptoms Medications Medication SIG (Take, Route, Frequency, Duration) Notes Start Date End Date Status Advil 200 MG 1 tablet as needed Orally every 6 hrs Not-Taking Atorvastatin Calcium 40 MG TAKE 1 TABLET BY MOUTH EVERY DAY Active Ativan 0.5 MG 1 tablet as needed Orally every 6 hrs for 5 days 05/07/2017 Not-Taking Levothyroxine Sodium 88 MCG TAKE 1 TABLET BY MOUTH EVERY DAY IN THE MORNING ON AN EMPTY STOMACH Active Metoprolol Succinate ER 50 MG TAKE 1 TABLET BY MOUTH EVERY DAY Active Vitamin D (Cholecalciferol) 1000 UNIT 1 tablet Orally Once a day 11/11/2016 Active Aspirin 81 MG 1 tablet Orally Once a day for 30 day(s) 02/10/2018 Active Social History Tobacco Use: Social History Observation Description Date Details (start date - stop date) Former Smoker NA - NA Tobacco Use/Smoking Question Answer Notes Patient is a former smoker How long has it been since y ou last smoked? > 10 years Additional Findings: Tobacco Non-User Fo rmer smoker, currently using no form of tobacco Alcohol Screen Question Answer Notes Did you have a drink containing alcohol in the p ast year? No Points 0 Interpretation Negative Vital Signs Blood pressure systolic 134 mm Hg 01/17/20 24 Blood pressure diastolic 82 mm Hg 024 Height 60 in 01/17/2024 Weight 203 lbs 01/17/2024 BMI 39.64 kg/m2 01/17/2024 weight is up 12 pounds since 08-02-23 Encounters Encounter Location Date Provider Diagnosis Andrew Waldrop MD [address] [place] [address] Drive [address] [place], [place] [phone] 01/17/2024 Andrew Waldrop Osteopenia of right hip M85.851 ; Panlobular emphysema J43.1 ; Acquired hypothyroidism E03.9 ; Vitamin D deficiency E55.9 ; Pure hypercholesterolemia E78.00 ; Labile hypertension I10 and Depression screening Z13.31 Assessments Encounter Date Diagnosis (ICD Code) Assessment Notes Treatment Notes Treatment Clinical Notes Section Notes 01/17/2024 Osteopenia of right hip (ICD-10 - M85.851) THE ORDER WAS FAXED TO [facility]ED , PATIENT IS AWARE 01/17/2024 Panlobular emphysema (ICD-10 - J43.1) stable, will continue to monitor 01/17/2024 Acquired hypothyroid ism (ICD-10 - E03.9) doing well, will continue current regiment 01/17/2024 Vitamin D deficiency (ICD-10 - E55.9) stable, will continue current regiment 01/17/2024 Pure hypercholesterolemia (ICD-10 - E78.00) stable, will continue current regiment 01/17/2024 Labile hypertension (ICD-10 - I10) doing well, will continue current regiment 01/17/2024 Depression screening (ICD-10 - Z13.31) negative screen Plan Of Treatment Medication Medication Name Sig Start Date Stop Date Notes Atorvastatin Calcium 40 MG TAKE 1 TABLET BY MOUTH EVERY DAY Levothyroxine Sodium 88 MCG TAKE 1 TABLE T BY MOUTH EVERY DAY IN THE MORNING ON AN EMPTY STOMACH Metoprolol Succinate ER 50 MG TAKE 1 TAB LET BY MOUTH EVERY DAY Vitamin D (Cholecalciferol) 1000 UNIT 1 tablet Orally Once a day 11/11/2016 Treatment Notes Assessment Notes Osteopenia of right hip THE ORDER WAS FA XED TO [facility] , PATIENT IS AWARE Panlobular emphysema stable, will contin ue to monitor Acquired hypothyroidism doing well, will continue current regiment Vitamin D deficiency stable, will contin ue current regiment Pure hypercholesterolemia stable, will c ontinue current regiment Labile hypertension doing well, will con tinue current regiment Depression screening negative screen Pending Test Test Name Order Date BONE DENSITY DEXA 01/17/2024 Next Appt Details Follow Up: 6 Months, Reason: Provider Name:Andrew Delacruz ier, 07/20/2025 09:15:00 AM, [address] [place] [address], [address], [phone], Provider Name:Andrew Delacruz ier, 01/17/2026 07:15:00 AM, [address] [place] [address], [place] [address], [place], [place], [phone], Provider Name:Andrew Evans Nubia ier, 01/24/2026 09:30:00 AM, [address] [place] [address], [address], [phone], Progress Notes * Mora FELIZOB:1950 (8 2 yo F)Acc No.[id number]:01/17/2024 Patient: Lily Lind Provider: Javier Waldrop MD :1950 A ge:73 Y S ex:Female Date:01/17/2024 Address:[address] [place] [address] [place], [id number] Subjective: * Chief Complaints: * R eview labsNO Covid symptoms * HPI: D epression Screening: PHQ-9 L ittle interest or pleasure in doing things N ot at all, F eeling down, depressed, or hopeless N ot at all, T rouble falling or staying asleep, or sleeping too much N ot at all, F eeling tired or having little energy N ot at all, P oor appetite or overeating N ot at all, F eeling bad about yourself or that you are a failure, or have let yourself or your family down N ot at all, T rouble concentrating on things, such as reading the newspaper or watching television N ot at all, M oving or speaking so slowly that other people could have noticed; or the opposite, being so fidgety or restless that you have been moving around a lot more than usual N ot at all, T houghts that you would be better off or of hurting yourself in some way N ot at all, T otal Score 0 . I nterpretation and Intervention D epression Screening Findings N egative, F ollow-Up for Depression : review of PHQ-9 found negative result, no follow-up needed. C ommunication Needs: Communication Needs D oes the patient have a hearing impairment N o, D oes the patient have a vision impairment? Y es, I f yes, what is the vision impairment? G lasses, D oes the patient have a cognition impairment? N o. F all Risk: History H ave you had any falls with injury in the past year? N o, H ave you had two or more falls in the past year? N o. S BUZZ Questions: SDOH Questions I n the past year have you been worried about losing housing? N o, I n the past year have you or any family members you live with been unable to get any of the following when it was really needed? Check all that apply: N one. S ymptom(s): patientis a 73 yo female here for review of recent labs and follow up of chronic issues. * ROS: G eneral/Constitutional: Patient denies c hills , fatigue , fever , headache. ? E NT: Patient denies d ecreased sense of smell , any loss of taste , sore throat. R espiratory: Patient complaining of c oughing and wheezing for 4 weeks.? C ardiovascular: Patient denies c hest pain with exertion, chest pain at rest. G astrointestinal: Patient denies c hange in bowel habits, abdominal pain.? G enitourinary: Patient denies f requent urination, difficulty urinating.? M usculoskeletal: Patient denies m uscle aches. P eripheral Vascular: Patient denies r ed and blue toes. * Medical History: * Surgical History: * Hospitalization/Major Diagno stic Procedure: * Family History: F ather: 86 yrs. M other: 90 yrs, diagnosed with COPD, Hypertension.?1 brother(s) , 1 sister(s) . . Father- Cardiac Mother Cardiac, Denies mental health/substance abuse family history, Denies mental health/substance abuse family history, No pertinent family medical history, No pertinent family medical history. * Social History: T obacco Use: T obacco Use/Smoking P atient is a f ormer smoker, H ow long has it been since you last smoked? > 10 years, A dditional Findings: Tobacco Non-User F ormer smoker, currently using no form of tobacco. D rugs/Alcohol: A lcohol Screen D id you have a drink containing alcohol in the past year? N o, P oints 0 , I nterpretation N egative. M iscellaneous: C affeine: yes, frequency:, 1-2 cups per day of tea. no Children. Community involvements: yes. Exercise: yes, waks half an hour a day. Housing: owning. Living with: spouse. Marital status: . Occupation: unemployed/ retired. Pets: none. no Travel outside of the [place]. * Medications: T akingAspirin 81 MG Tablet Delayed Release 1 tablet Orally Once a dayVitamin D (Cholecalciferol) 1000 UNIT Tablet 1 tablet Orally Once a dayLevothyroxine Sodium 88 MCG Tablet TAKE 1 TABLET BY MOUTH EVERY DAY IN THE MORNING ON AN EMPTY STOMACH Metoprolol Succinate ER 50 MG Tablet Extended Release 24 Hour TAKE 1 TABLET BY MOUTH EVERY DAY Atorvastatin Calcium 40 MG Tablet TAKE 1 TABLET BY MOUTH EVERY DAY Taking Aspirin 81 MG Tablet Delayed Release 1 tablet Orally Once a dayTaking Vitamin D (Cholecalciferol) 1000 UNIT Tablet 1 tablet Orally Once a dayTaking Levothyroxine Sodium 88 MCG Tablet TAKE 1 TABLET BY MOUTH EVERY DAY IN THE MORNING ON AN EMPTY STOMACH Taking Metoprolol Succinate ER 50 MG Tablet Extended Release 24 Hour TAKE 1 TABLET BY MOUTH EVERY DAY Taking Atorvastatin Calcium 40 MG Tablet TAKE 1 TABLET BY MOUTH EVERY DAY Not-Taking/PRNAtivan 0.5 MG Tablet 1 tablet as needed Orally every 6 hrsAdvil 200 MG Tablet 1 tablet as needed Orally every 6 hrsMedication List reviewed and reconciled with the patientNot-Taking/PRN Ativan 0.5 MG Tablet 1 tablet as needed Orally every 6 hrsNot-Taking/PRN Advil 200 MG Tablet 1 tablet as needed Orally every 6 hrsMedication List reviewed and reconciled with the patient * Allergies: P enicillin G Potassium: rashyes[Allergies Verified] Objective: * Vitals: H t: 60, Wt:203, BMI:39.64, BP:134/82 weight is up 12 pounds since 08-02-23. * P ast Orders: L ab:Lipid Panel (Order Date - 01/10/2024) (Collection Date - 01/10/2024) Value Reference Range Triglycerides 69 <150 - mg/dL Cholesterol 153 <200 - mg/dL LDL Cholesterol Calculated 77 <100 - mg/dL HDL Cholesterol 63 >40 - mg/dL L ab:Vitamin D 25-OH Total (Order Date - 01/10/2024) (Collection Date - 01/10/2024) Value Reference Range Vitamin D 25-OH Total 40.8 >30 - ng/mL L ab:TSH reflex Free T4 (Order Date - 01/10/2024) (Collection Date - 01/10/2024) Value Reference Range TSH reflex Free T4 2.75 0.32-4.0 - uIU/mL L ab:Complete Blood Count Auto Diff (Order Date - 01/10/2024) (Collection Date - 01/10/2024) Value Reference Range White Blood Count 8.2 4.8-10.8 - X10*3/uL Red Blood Count 4.80 4.20-5.50 - X10*6/uL Hemoglobin 14.8 12.0-16.0 - g/dl Hematocrit 46.2 37.0-47.0 - % Mean Corpuscular Volume 96.3 80.0-98.0 - fL Mean Corpuscular Hemoglobin 30.8 27.0-33.0 - pg Mean Corpuscular HGB Conc 32.0 31.0-35.0 - g/ dl Red Cell Distribution Width 12.1 11.0-16.0 - % Platelet Count 310 160-400 - X10*3/uL Mean Platelet Volume 10.5 9.4-12.3 - fL Neutrophils Percent Auto 50.8 45-73 - % Imm Gran Pct Auto 0.4 0.0-0.4 - % Lymphocytes Percent Auto 33.1 20-40 - % Monocytes Percent Auto 9.6 2-11 - % Eosinophils Percent Auto 5.1 H 0-4 - % Basophils Percent Auto 1.0 0-2 - % NRBC Pct Auto 0.0 0.0-0.2 - /100WBC Neutrophils Absolute Auto 4.2 2.0-8.3 - x10* 3/uL Imm Gran Abs Auto 0.03 0.00-0.03 - X10*3/uL Lymphocytes Absolute Auto 2.7 1.2-4.9 - X10* 3/uL Monocytes Absolute Auto 0.8 0.1-1.2 - X10*3/ uL Eosinophils Absolute Auto 0.4 0.0-0.4 - X10* 3/uL Basophils Absolute Auto 0.1 0.0-0.2 - X10*3/ uL NRBC Abs Auto 0.000 0.0-0.012 - X10*3/uL L ab:UA ClnCatch+Micro w/rflx Cult (Order Date - 01/10/2024) (Collection Date - 01/10/2024) Value Reference Range Color Urine Yellow - Appearance Urine Clear - PH 6.5 5.0-9.0 - Glucose Urine UA Negative Negative - mg/dL Urine Blood Negative Negative - Specific Devine - Urine 1.015 1.005-1.025 - Urine Protein Negative Neg-Trace - mg/dL Urine Ketones Negative Negative - mg/dL Nitrite Urine Negative Negative - Leukocyte Esterase Urine Trace A Negative - RBC Urine 0-2 0-2 - /HPF WBC Urine 0-5 0-5 - /HPF Squamous Epithelial Cell Urine 0-2 0-2 - /HP F Bacteria Urine None Seen None Seen - Hyaline Casts Urine 0-2 0-2 - /LPF L ab:Comprehensive Met. Panel (Order Date - 01/10/2024) (Collection Date - 01/10/2024) Value Reference Range Sodium 141 135-145 - mmol/L Bilirubin Total 0.4 0.0-1.0 - mg/dL Aspartate Amino Transferase 18 5-31 - U/L Alanine Aminotransferase 15 0-31 - U/L Total Protein 6.8 6.5-8.0 - g/dL Albumin Level 3.8 3.5-5.0 - g/dL Alkaline Phosphatase 89 39-117 - U/L Potassium 4.6 3.3-5.1 - mmol/L Chloride 104 96-108 - mmol/L Carbon Dioxide 29 22-29 - mmol/L Anion Gap 13 12-20 - Blood Urea Nitrogen 21 H 9-16 - mg/dL Creatinine 0.90 0.5-1.4 - mg/dL Estimated Glomerular Filt Rate > 60 - Glucose Random 105 60-115 - mg/dL Calcium 9.4 8.4-10.2 - mg/dL * Examination: G eneral Examination: GENERAL APPEARANCE: alert, well hydrated, in no distress , female. HEAD: normocephalic. EYES: BOTH EYES, extraocular movement full and smooth.? EARS: BOTH EARS, normal. THROAT: no erythema, no exudate, pharynx normal. NECK/THYROID: no cervical lymphadenopathy. SKIN: good turgor. HEART: no murmurs, rubs, gallops, regular rate and rhythm. LUNGS: diminished breath sounds throughout, scattered wheezes throughout. ABDOMEN: soft, nontender, nondistended, no rebound tenderness, no organomegaly . FEMALE GENITOURINARY: declined. Assessment: * Assessment: 1. O steopenia of right hip - M85.851 (Primary) 2 . P anlobular emphysema - J43.1 3 . A cquired hypothyroidism - E03.9 4 . V itamin D deficiency - E55.9 5 . P ure hypercholesterolemia - E78.00 6 . L abile hypertension - I10 7 . D epression screening - Z13.31 Plan: * Treatment: 2. P anlobular emphysema Notes: stable, will continue to monitor. 3. A cquired hypothyroidism Continue Levothyroxine Sodium Tablet, 88 MCG, TAKE 1 TABLET BY MOUTH EVERY DAY IN THE MORNING ON AN EMPTY STOMACH. Notes: doing well, will continue current regiment. 4. V itamin D deficiency Continue Vitamin D (Cholecalciferol) Tablet, 1000 UNIT, 1 tablet, Orally, Once a day. Notes: stable, will continue current regiment. 5. P ure hypercholesterolemia Continue Atorvastatin Calcium Tablet, 40 MG, TAKE 1 TABLET BY MOUTH EVERY DAY. Notes: stable, will continue current regiment. 6. L abile hypertension Continue Metoprolol Succinate ER Tablet Extended Release 24 Hour, 50 MG, TAKE 1 TABLET BY MOUTH EVERY DAY. Notes: doing well, will continue current regiment. 7. D epression screening Notes: negative screen. * Procedure Codes: * Follow Up: 6 Months * * Sign off status: Completed true * Provider: Javier Waldrop MD Date: 0 01/17/2024 Generated for Vinita Serrato/Estuardo on: 09/18/2024 01:12 PM EST History and Physical Notes * HPI (History of Present Illness) Category Sub-Category Detail Notes Category Not es Symptom(s) patientis a 73 yo female here for review of recent labs and follow up of chronic issues. Depression Screening PHQ-9 Little inte rest or pleasure in doing things: Not at all Feeling down, depressed, or hopeless: No t at all Trouble falling or staying asleep, or sl eeping too much: Not at all Feeling tired or having little energy: N ot at all Poor appetite or overeating: Not at all Feeling bad about yourself o r that you are a failure, or have let yourself or your family down: Not at all Trouble concentrating on thi ngs, such as reading the newspaper or watching television: Not at all Moving or speaking so slowly that other people could have noticed; or the opposite, being so fidgety or restless that you have been moving around a lot more than usual: Not at all Thoughts that you would be b noé off or of hurting yourself in some way: Not at all Total Score: 0 Interpretation and Intervention Depression Darryl farrell Findings: Negative Follow-Up for Depression: : review of PH Q-9 found negative result, no follow-up needed SDOH Questions SDOH Questions In the past year have you been worried about losing housing?: No In the past year have you or any family members you live with been unable to get any of the following when it was really needed? Check all that apply:: None Fall Risk History Have you had any falls with injury i n the past year?: No Have you had two or more falls in the st year?: No Communication Needs Communication Needs Does the patient have a hearing impairment: No Does the patient have a vision impairmen t?: Yes If yes, what is the vision impairment?: Glasses Does the patient have a cognition impair ment?: No Examination Category Sub-Category Detail Notes Category Not es General Examination GENERAL APPEARANCE: alert, w ell hydrated, in no distress , female HEAD: normocephalic EYES: BOTH EYES, extraocul ar movement full and smooth EARS: BOTH EARS, normal THROAT: no erythema, no exud ate, pharynx normal NECK/THYROID: no cervical lymphade nopathy HEART: no murmurs, rubs, ga llops, regular rate and rhythm LUNGS: diminished breath so unds throughout, scattered wheezes throughout ABDOMEN: soft, nontender, non distended, no rebound tenderness, no organomegaly SKIN: good turgor FEMALE GENITOURINARY: declined
--- OUTSIDE RECORDS SUMMARY | 2024-02-25 02:14 | XMS_ITS ---
Author Organization Andrew Waldrop MD Address [address] [place] [id number] Care Team Providers Care Cocoa Mill Operator Name Role Phone Andrew Waldrop Primary Care Provider REASON FOR VISIT Bone Density due Encounters Encounter Location Date Provider Diagnosis Andrew Waldrop MD [address] [facility] [address] [place] [phone] 02/25/2024 Andrew Waldrop Osteopenia of right hip M85.851 and Vitamin D deficiency E55.9 Assessments Encounter Date Diagnosis (ICD Code) Assessment Notes Treatment Notes Treatment Clinical Notes Section Notes 02/25/2024 Osteopenia of right hip (ICD-10 - M85.851) order made and printed and put into the future folder for 02/25/2024 Vitamin D deficiency (ICD-10 - E55.9) Plan Of Treatment Treatment Notes Assessment Notes Osteopenia of right hip order made and p rinted and put into the future folder for Pending Test Test Name Order Date XR DEXA axial skeleton 02/25/2024 Next Appt Details Provider Name:Andrew dia, 07/20/2025 09:15:00 AM, [address] [place] [address], [place] [address], [place], [place], [phone], Provider Name:Andrew dia, 01/17/2026 07:15:00 AM, [address], [address], [place], [place], [phone], Provider Name:Andrew Cristina Gloriaangela jaleelr, 01/24/2026 09:30:00 AM, [address], [address], [place], [phone], Progress Notes * CARY CarrieFredaOB:1950 ([age] yo F)Acc No.[id number]:02/25/2024 Patient: Lily Lind :1950 A ge:73 Y S ex:Female Address:[address] [place], [place] [address] [address] Subjective: * Chief Complaints: * B one Density due * Medical History: * Surgical History: * Hospitalization/Major Diagno stic Procedure: * Medications: Objective: Assessment: * Assessment: 1. O steopenia of right hip - M85.851 2 . V itamin D deficiency - E55.9 Plan: * Treatment: Notes: order made and printed and put into the future folder for .?? 2.?Vitamin D deficiency?Imaging: XR DEXA axial skeleton* Karen Beltran 02/25/20 24 07:17:43 AM EDT > To be done * Procedure Codes: * true * Date: Generated for Vinita gracia/Jeet/Carrilloitting on: 09/18/2024 01:12 PM EST
--- OUTSIDE RECORDS SUMMARY | 2024-07-20 05:00 | XMS_ITS ---
Author Organization Andrew Waldrop MD Address [address] [place], [place] [phone] Care Team Providers Care Inside Contractor Sales Name Role Phone Andrew Waldrop Primary Care Provider Allergies Allergen (clinical drug ingredient) Drug/Non Drug Allergy documented on EMR Reaction Allergy Type Onset Date Status penicillin G Penicillin G Potassium rash Drug Allergy Active Results Component Value Reference Range Notes Liver Panel Reviewed date:07/20/2024 05:36:54 PM Interpretation: Performing Lab:[facility], [address] [place] [phone] Notes/Report: Bilirubin Total 0.6 0.0-1.0 mg/dL Bilirubin Direct 0.2 0.0-0.5 mg/dL Aspartate Amino Transferase 26 5-31 U/L Alanine Aminotransferase 16 0-31 U/L Total Protein 6.8 6.5-8.0 g/dL Albumin Level 3.9 3.5-5.0 g/dL Alkaline Phosphatase 82 39-117 U/L Lipid Panel Reviewed date:07/20/2024 05:36:26 PM Interpretation: Performing Lab:[facility], [address] [place] [phone] Notes/Report: Triglycerides 61 <150 mg/dL Desirable Triglyceride: less than 150 mg/dL Borderline High Triglyceride 150-199 mg/dL High Triglyceride: 200-499 mg/dL Very High Triglyceride: greater than or equal to 5OO mg/dL Cholesterol 159 <200 mg/dL Desirable Cholesterol: less than 200 mg/dL Borderline High Cholesterol: 200-239 mg/dL High Cholesterol: greater than 239 mg/dL LDL Cholesterol Calculated 80 <100 mg/dL Desirable LDL: less than 100 mg/dL Near Optimal/Above Optimal LDL: 110-129 mg/dL Borderline High LDL: 130-159 mg/dL High LDL: 160-189 mg/dL Very High LDL: greater than or equal to 190 mg/dL HDL Cholesterol 67 >40 mg/dL Desirable HDL: greater than 40 mg/dL Note: This HDL assay may give artificially low results in patients with liver disease. TSH reflex Free T4 Reviewed date:07/20/2024 05:36:18 PM Interpretation: Performing Lab:[facility], [address] [place] [phone] Notes/Report: TSH reflex Free T4 0.73 0.32-4.0 uIU/mL REASON FOR VISIT 6 MO F/U Medications Medication SIG (Take, Route, Frequency, Duration) Notes Start Date End Date Status Atorvastatin Calcium 40 MG TAKE 1 TABLET BY MOUTH EVERY DAY Active Levothyroxine Sodium 88 MCG TAKE 1 TABLET BY MOUTH EVERY DAY IN THE MORNING ON AN EMPTY STOMACH Active Ativan 0.5 MG 1 tablet as needed Orally every 6 hrs for 5 days 05/07/2017 Not-Taking Metoprolol Succinate ER 50 MG TAKE 1 TABLET BY MOUTH EVERY DAY Active Vitamin D (Cholecalciferol) 1000 UNIT 1 tablet Orally Once a day 11/11/2016 Active Aspirin 81 MG 1 tablet Orally Once a day for 30 day(s) 02/10/2018 Active Advil 200 MG 1 tablet as needed Orally every 6 hrs Not-Taking Immunizations Vaccine Route Administration Date Status Comme nts Influenza High Dose IM Intramuscular 07/20/2024 Administer ed Vital Signs Blood pressure systolic 132 mm Hg 07/20/20 24 Blood pressure diastolic 94 mm Hg 024 Height 60 in 07/20/2024 Weight 203 lbs 07/20/2024 BMI 39.64 kg/m2 07/20/2024 Encounters Encounter Location Date Provider Diagnosis Andrew Waldrop MD [address] [place], [place] [phone] 07/20/2024 Andrew Waldrop Panlobular emphysema J43.1 ; Osteopenia of right hip M85.851 ; Acquired hypothyroidism E03.9 ; Encounter for immunization Z23 ; Pure hypercholesterolemia E78.00 and Labile hypertension I10 Assessments Encounter Date Diagnosis (ICD Code) Assessment Notes Treatment Notes Treatment Clinical Notes Section Notes 07/20/2024 Panlobular emphysema (ICD-10 - J43.1) instructed in use of inhaler 07/20/2024 Osteopenia of right hip (ICD-10 - M85.851) no need for treatment 07/20/2024 Acquired hypothyroid ism (ICD-10 - E03.9) will recheck , pending lab, will contiue current regiment 07/20/2024 Encounter for immunization (ICD-10 - Z23) flu vaccine administered 07/20/2024 Pure hypercholesterolemia (ICD-10 - E78.00) will recheck, pending labs, will cntiue current regiment 07/20/2024 Labile hypertension (ICD-10 - I10) stable, will continue current regiment Plan Of Treatment Medication Medication Name Sig Start Date Stop Date Notes Atorvastatin Calcium 40 MG TAKE 1 TABLET BY MOUTH EVERY DAY Levothyroxine Sodium 88 MCG TAKE 1 TABLE T BY MOUTH EVERY DAY IN THE MORNING ON AN EMPTY STOMACH Treatment Notes Assessment Notes Panlobular emphysema instructed in use o f inhaler Osteopenia of right hip no need for vale tment Acquired hypothyroidism will recheck , p ending lab, will contiue current regiment Encounter for immunization flu vaccine a dministered Pure hypercholesterolemia will recheck, pending labs, will cntiue current regiment Labile hypertension stable, will continu e current regiment Next Appt Details Follow Up: 6 Months, Reason: comp Provider Name:Andrew dia, 07/20/2025 09:15:00 AM, [address] [place] [address], [address], [phone], Provider Name:Andrew dia, 01/17/2026 07:15:00 AM, [address] [place] [address], [address], [phone], Provider Name:Andrew dia, 01/24/2026 09:30:00 AM, [address] [place] [address], [address], [phone], Progress Notes * Barrera TOWNSEND:1950 ([age] yo F)Acc No.[id number]:07/20/2024 Progress Notes Patient: Lily Lind Provider: Javier Waldrop MD :1950 A ge:74 Y S ex:Female Date:07/20/2024 Address:[id number] Subjective: * Chief Complaints: * 6 MO F/U * HPI: S ymptom(s): patient is a 74 yo female here for 6 month follow up visit, still going to gym 4 times per week. * ROS: G eneral/Constitutional: Denies C hills. D enies F atigue. D enies F ever. D enies H eadache. E NT: Patient denies d ecreased sense of smell , any loss of taste , sore throat. D enies S ore throat. R espiratory: Denies C ough. D enies S hortness of breath at rest. D enies S hortness of breath with exertion. G astrointestinal: Denies D iarrhea. D enies N ausea. M usculoskeletal: Patient denies m uscle aches. P eripheral Vascular: Patient denies r ed and blue toes. * Medical History: * Surgical History: * Hospitalization/Major Diagno stic Procedure: * Medications: T akingAspirin 81 MG Tablet Delayed Release 1 tablet Orally Once a dayVitamin D (Cholecalciferol) 1000 UNIT Tablet 1 tablet Orally Once a dayMetoprolol Succinate ER 50 MG Tablet Extended Release 24 Hour TAKE 1 TABLET BY MOUTH EVERY DAY Atorvastatin Calcium 40 MG Tablet TAKE 1 TABLET BY MOUTH EVERY DAY Levothyroxine Sodium 88 MCG Tablet TAKE 1 TABLET BY MOUTH EVERY DAY IN THE MORNING ON AN EMPTY STOMACH Taking Aspirin 81 MG Tablet Delayed Release 1 tablet Orally Once a dayTaking Vitamin D (Cholecalciferol) 1000 UNIT Tablet 1 tablet Orally Once a dayTaking Metoprolol Succinate ER 50 MG Tablet Extended Release 24 Hour TAKE 1 TABLET BY MOUTH EVERY DAY Taking Atorvastatin Calcium 40 MG Tablet TAKE 1 TABLET BY MOUTH EVERY DAY Taking Levothyroxine Sodium 88 MCG Tablet TAKE 1 TABLET BY MOUTH EVERY DAY IN THE MORNING ON AN EMPTY STOMACH Not-Taking/PRNAtivan 0.5 MG Tablet 1 tablet as [...] * Vitals: H t: 60, Wt:203, BMI:39.64, BP:132/94. * Examination: G eneral Examination: GENERAL APPEARANCE: a lert, well hydrated, in no distress.? HEAD: n ormocephalic. HEART: n o murmurs, rubs, gallops , regular rate and rhythm. LUNGS: n o wheezes, rales, rhonchi , good air movement , clear to auscultation bilaterally. Assessment: * Assessment: 1. P anlobular emphysema - J43.1 (Primary) 2 . O steopenia of right hip - M85.851 3 . A cquired hypothyroidism - E03.9 4 . E ncounter for immunization - Z23 5 . P ure hypercholesterolemia - E78.00 6 . L abile hypertension - I10 Plan: * Treatment: 2. O steopenia of right hip Notes: no need for treatment 3. A cquired hypothyroidism Continue Levothyroxine Sodium Tablet, 88 MCG, TAKE 1 TABLET BY MOUTH EVERY DAY IN THE MORNING ON AN EMPTY STOMACH. L AB: Liver Panel L AB: Lipid Panel L AB: TSH reflex Free T4 Notes: will recheck , pending lab, will contiue current regiment 4. E ncounter for immunization Notes: flu vaccine administered 5. P ure hypercholesterolemia Continue Atorvastatin Calcium Tablet, 40 MG, TAKE 1 TABLET BY MOUTH EVERY DAY. L AB: Liver Panel L AB: Lipid Panel Notes: will recheck, pending labs, will cntiue current regiment 6. L abile hypertension Notes: stable, will continue current regiment * Immunizations: Influenza High Dose : 0.5 (Dose No:1) (Route: Intramuscular) given by Karen Beltran on Right Deltoid * Procedure Codes: 9 0662 FLU VACC PRSV FREE INC [id number] VENIPUNCT, ROUTINE*G0008 ADMN FLU VAC NO FEE SCHED SAME DAY * Preventive Medicine: Immunizations: I nfluenza H ave you had a flu shot since the most recent May 07? Y es. * Follow Up: 6 Months (Reason: comp) * * Sign off status: Completed true * Provider: Javier Waldrop MD Date: 09/19/2023 Generated for Vinita gracia/Jeet/eTransmitting on: 09/18/2024 01:12 PM EST History and Physical Notes * HPI (History of Present Illness) Category Sub-Category Detail Notes Category Not es Symptom(s) patient is a 74 yo female here for 6 month follow up visit, still going to gym 4 times per week Examination Category Sub-Category Detail Notes Category Not es General Examination GENERAL APPEARANCE: alert, w ell hydrated, in no distress HEAD: normocephalic HEART: no murmurs, rubs, ga llops , regular rate and rhythm LUNGS: no wheezes, rales, r honchi , good air movement , clear to auscultation bilaterally
--- OUTSIDE RECORDS SUMMARY | 2024-07-21 04:00 | XMS_ITS ---
Author Organization Andrew Waldrop MD Address [address] [facility] [address] [place] [phone] Care Team Providers Care Assistant Corporation Counsel Name Role Phone Andrew Waldrop Primary Care Provider REASON FOR VISIT Lab results Encounters Encounter Location Date Provider Diagnosis Andrew Waldrop MD [address] [place] [address] [place] [phone] 07/21/2024 Andrew Waldrop Plan Of Treatment Next Appt Details Provider Name:Andrew dia, 07/20/2025 09:15:00 AM, [address] [place] [address], [phone], Provider Name:Andrew dia, 01/17/2026 07:15:00 AM, [address] [place] [address], [phone], Provider Name:Andrew dia, 01/24/2026 09:30:00 AM, [address] [place] [address], [phone], Progress Notes * Mora TOWNSENDOB:1950 ([age] yo F)Acc No.[id number]:07/21/2024 Patient: Lily Lind :1950 A ge:74 Y S ex:Female Address:[address] [place] [address] [place]LE, [place] [address] * true * Date: Generated for Vinita gracia/Jeet/Estuardo on: 09/18/2024 01:11 PM EST
--- OUTSIDE RECORDS SUMMARY | 2025-01-12 03:00 | XMS_ITS ---
Author Organization Andrew Waldrop MD Address [address] [place], [place] [id number] Care Team Providers Care Review Specialist Name Role Phone Andrew Waldrop Primary Care Provider Results Component Value Reference Range Notes Complete Blood Count Auto Di ff Reviewed date:01/12/2025 12:34:04 PM Interpretation: Performing Lab:[facility], [address] [place] [phone] Notes/Report: White Blood Count 8.3 4.8-10.8 X10*3/uL Red Blood Count 4.66 4.20-5.50 X10*6/uL Hemoglobin 14.6 12.0-16.0 g/dl Hematocrit 44.9 37.0-47.0 % Mean Corpuscular Volume 96.4 80.0-98.0 fL Mean Corpuscular Hemoglobin 31.3 27.0-33.0 pg Mean Corpuscular HGB Conc 32.5 31.0-35.0 g/dl Red Cell Distribution Width 12.3 11.0-16.0 % Platelet Count 293 160-400 X10*3/uL Mean Platelet Volume 10.2 9.4-12.3 fL Neutrophils Percent Auto 52.9 45-73 % Imm Gran Pct Auto 0.4 0.0-0.4 % Lymphocytes Percent Auto 31.6 20-40 % Monocytes Percent Auto 9.2 2-11 % Eosinophils Percent Auto 4.8 0-4 % Basophils Percent Auto 1.1 0-2 % NRBC Pct Auto 0.0 0.0-0.2 /100WBC Neutrophils Absolute Auto 4.4 2.0-8.3 x10*3/u L Imm Gran Abs Auto 0.03 0.00-0.03 X10*3/uL Lymphocytes Absolute Auto 2.6 1.2-4.9 X10*3/u L Monocytes Absolute Auto 0.8 0.1-1.2 X10*3/uL Eosinophils Absolute Auto 0.4 0.0-0.4 X10*3/u L Basophils Absolute Auto 0.1 0.0-0.2 X10*3/uL NRBC Abs Auto 0.000 0.0-0.012 X10*3/uL Comprehensive [place]. Panel Fa st Reviewed date:01/12/2025 12:33:44 PM Interpretation: Performing Lab:[facility], [address] [place] [phone] Notes/Report: Sodium 137 135-145 mmol/L Potassium 3.7 3.3-5.1 mmol/L Chloride 103 96-108 mmol/L Carbon Dioxide 27 22-29 mmol/L Anion Gap 11 12-20 Blood Urea Nitrogen 16 9-16 mg/dL Creatinine 0.82 0.5-1.4 mg/dL Estimated Glomerular Filt Rate > 60 Chronic Kidney Disease: Estimated GFR < 60 mL/min/1.73m2 Severe Kidney Disease: Estimated GFR < 15 mL/min/1.73m2 Glucose Fasting 83 60-99 mg/dL Calcium 8.6 8.4-10.2 mg/dL Bilirubin Total 0.5 0.0-1.0 mg/dL Aspartate Amino Transferase 23 5-31 U/L Alanine Aminotransferase 15 0-31 U/L Total Protein 6.4 6.5-8.0 g/dL Albumin Level 3.7 3.5-5.0 g/dL Alkaline Phosphatase 84 39-117 U/L Lipid Panel Reviewed date:01/12/2025 12:11:30 PM Interpretation: Performing Lab:[facility], [address] [place] [phone] Notes/Report: Triglycerides 62 <150 mg/dL Desirable Triglyceride: less than 150 mg/dL Borderline High Triglyceride 150-199 mg/dL High Triglyceride: 200-499 mg/dL Very High Triglyceride: greater than or equal to 5OO mg/dL Cholesterol 149 <200 mg/dL Desirable Cholesterol: less than 200 mg/dL Borderline High Cholesterol: 200-239 mg/dL High Cholesterol: greater than 239 mg/dL LDL Cholesterol Calculated 74 <100 mg/dL Desirable LDL: less than 100 mg/dL Near Optimal/Above Optimal LDL: 110-129 mg/dL Borderline High LDL: 130-159 mg/dL High LDL: 160-189 mg/dL Very High LDL: greater than or equal to 190 mg/dL HDL Cholesterol 63 >40 mg/dL Desirable HDL: greater than 40 mg/dL Note: This HDL assay may give artificially low results in patients with liver disease. Vitamin D 25-OH Total Reviewed date:01/12/2025 12:20:25 PM Interpretation: Performing Lab:[address] [phone] Notes/Report: Vitamin D 25-OH Total 35.0 >30 ng/mL Health Based Reference Values* < 20 ng/mL Deficient 20-30 ng/mL Insufficient > 30 ng/mL Sufficient *Thierry SKY. N Engl J Med. 2007;357:266-280 There is no well-established upper level of normal vitamin D levels. Some laboratories use 50 ng/mL as an upper limit of normal. However, toxicity is patient-dependent and may occur at any level. Careful correlation with the patient's presentation is necessary and, if there is concern for vitamin D toxicity, treatment should be considered irrespective of the serum level. Care must be taken in interpreting Vitamin [...] as LC-MS/MS. TSH reflex Free T4 Reviewed date:01/12/2025 12:20:59 PM Interpretation: Performing Lab:[facility], [address] [place] [phone] Notes/Report: TSH reflex Free T4 2.95 0.32-4.0 uIU/mL UA ClnCatch+Micro w/rflx Cul t Reviewed date:01/12/2025 12:19:30 PM Interpretation: Performing Lab:[facility], [address] [place] [address] Notes/Report: Urine, Clean Catch Color Urine Yellow Appearance Urine Clear PH 6.5 5.0-9.0 Glucose Urine UA Negative Negative mg/dL Urine Blood Negative Negative Specific Roland - Urine <= 1.005 1.005-1.025 Urine Protein Negative Neg-Trace mg/dL Urine Ketones Negative Negative mg/dL Nitrite Urine Negative Negative Leukocyte Esterase Urine Negative Negative RBC Urine 0-2 0-2 /HPF WBC Urine 0-5 0-5 /HPF Squamous Epithelial Cell Urine 0-2 0-2 /HPF Bacteria Urine None Seen None Seen Hyaline Casts Urine 0-2 0-2 /LPF REASON FOR VISIT FASTING LABS Encounters Encounter Location Date Provider Diagnosis Andrew Waldrop MD [address] [place] [phone] 01/12/2025 Andrew Waldrop Labile hypertension I10 ; Pure hypercholesterolemia E78.00 ; Vitamin D deficiency E55.9 and Acquired hypothyroidism E03.9 Assessments Encounter Date Diagnosis (ICD Code) Assessment Notes Treatment Notes Treatment Clinical Notes Section Notes 01/12/2025 Labile hypertension (ICD-10 - I10) 01/12/2025 Pure hypercholesterolemia (ICD-10 - E78.00) 01/12/2025 Vitamin D deficiency (ICD-10 - E55.9) 01/12/2025 Acquired hypothyroid ism (ICD-10 - E03.9) Plan Of Treatment Next Appt Details Provider Name:Andrew dia, 07/20/2025 09:15:00 AM, [address] [place] [address], [address], [phone], Provider Name:Andrew dia, 01/17/2026 07:15:00 AM, [address] [place] [address], [address], [phone], Provider Name:Andrew dia, 01/24/2026 09:30:00 AM, [address] [place] [address], [address], [phone], Progress Notes * Barrera FELIZ:1950 ([age] yo F)Acc No.[id number]:01/12/2025 Progress Note Patient: Lily RANGEL Provider: Javier Waldrop MD :1950 A ge:74 Y S ex:Female Date:01/12/2025 Address:[address] [place] [address], [place], [id number] Subjective: * Chief Complaints: * 1 . FASTING LABS. * Medical History: Objective: * Vitals: Assessment: * Assessment: 1. L abile hypertension - I10 (Primary) 2 . P ure hypercholesterolemia - E78.00 3 . V itamin D deficiency - E55.9 4 . A cquired hypothyroidism - E03.9 Plan: * Treatment: 2. P ure hypercholesterolemia L AB: Complete Blood Count Auto Diff (Collection Date & Time - 01/12/2025 08:00 AM) L AB: Comprehensive [facility]. Panel Fast (Collection Date & Time - 01/12/2025 08:00 AM) L AB: Lipid Panel (Collection Date & Time - 01/12/2025 08:00 AM) L AB: Vitamin D 25-OH Total (Collection Date & Time - 01/12/2025 08:00 AM) L AB: TSH reflex Free T4 (Collection Date & Time - 01/12/2025 08:00 AM) L AB: UA ClnCatch+Micro w/rflx Cult (Collection Date & Time - 01/12/2025 08:00 AM) 3. V itamin D deficiency L AB: Complete Blood Count Auto Diff (Collection Date & Time - 01/12/2025 08:00 AM) L AB: Comprehensive [facility]. Panel Fast (Collection Date & Time - 01/12/2025 08:00 AM) L AB: Lipid Panel (Collection Date & Time - 01/12/2025 08:00 AM) L AB: Vitamin D 25-OH Total (Collection Date & Time - 01/12/2025 08:00 AM) L AB: TSH reflex Free T4 (Collection Date & Time - 01/12/2025 08:00 AM) L AB: UA ClnCatch+Micro w/rflx Cult (Collection Date & Time - 01/12/2025 08:00 AM) 4. A cquired hypothyroidism L AB: Complete Blood Count Auto Diff (Collection Date & Time - 01/12/2025 08:00 AM) L AB: Comprehensive [facility]. Panel Fast (Collection Date & Time - 01/12/2025 08:00 AM) L AB: Lipid Panel (Collection Date & Time - 01/12/2025 08:00 AM) L AB: Vitamin D 25-OH Total (Collection Date & Time - 01/12/2025 08:00 AM) L AB: TSH reflex Free T4 (Collection Date & Time - 01/12/2025 08:00 AM) L AB: UA ClnCatch+Micro w/rflx Cult (Collection Date & Time - 01/12/2025 08:00 AM) * Procedure Codes: 3 6415 VENIPUNCT, ROUTINE* * * The named appointment provid er may or may not be the originator of this progress note, and it is not deemed complete until electronically signed by the appointment provider. Sign off status: Pending * Provider: Javier Waldrop MD Date: 0 01/12/2025 Generated for Vinita gracia/Jeet/Carrilloitting on: 1 09/18/2024 01:12 PM EST
--- OUTSIDE RECORDS SUMMARY | 2025-01-19 05:00 | XMS_ITS ---
Author Organization Andrew Waldrop MD Address [address] [place], [place] [id number] Care Team Providers Care Supervisor Prepress Name Role Phone Andrew Waldrop Primary Care Provider Allergies Allergen (clinical drug ingredient) Drug/Non Drug Allergy documented on EMR Reaction Allergy Type Onset Date Status penicillin G Penicillin G Potassium rash Drug Allergy Active REASON FOR VISIT review labs Medications Medication SIG (Take, Route, Frequency, Duration) Notes Start Date End Date Status Levothyroxine Sodium 88 MCG TAKE 1 TABLET BY MOUTH EVERY DAY IN THE MORNING ON AN EMPTY STOMACH Active Advil 200 MG 1 tablet as needed Orally every 6 hrs Not-Taking Metoprolol Succinate ER 50 MG TAKE 1 TABLET BY MOUTH EVERY DAY for 90 Active Ativan 0.5 MG 1 tablet as needed Orally every 6 hrs for 5 days 05/07/2017 Not-Taking Aspirin 81 MG 1 tablet Orally Once a day for 30 day(s) 02/10/2018 Active Vitamin D (Cholecalciferol) 1000 UNIT 1 tablet Orally Once a day 11/11/2016 Active Atorvastatin Calcium 40 MG TAKE 1 TABLET BY MOUTH EVERY DAY Active Social History Tobacco Use: Social History [...] Interpretation Negative Vital Signs Blood pressure systolic 140 mm Hg 01/20/20 25 Blood pressure diastolic 82 mm Hg 025 Height 60 in 01/19/2025 Weight 209 lbs 01/19/2025 BMI 40.81 kg/m2 01/19/2025 weight is up 6 pounds since 07-20-24 Encounters Encounter Location Date Provider Diagnosis Andrew Waldrop MD [address] [place] [address] [address] [place], [place] [phone] 01/19/2025 Andrew Waldrop Panlobular emphysema J43.1 ; Pure hypercholesterolemia E78.00 ; Lung nodules R91.8 ; Labile hypertension I10 ; Acquired hypothyroidism E03.9 and Vitamin D deficiency E55.9 Assessments Encounter Date Diagnosis (ICD Code) Assessment Notes Treatment Notes Treatment Clinical Notes Section Notes 01/19/2025 Panlobular emphysema (ICD-10 - J43.1) stable, will continue current regiment 01/19/2025 Pure hypercholesterolemia (ICD-10 - E78.00) doing well, will continue current regiment 01/19/2025 Lung nodules (ICD-10 - R91.8) followed with cat scan 01/19/2025 Labile hypertension (ICD-10 - I10) stable, will continue current regiment 01/19/2025 Acquired hypothyroid ism (ICD-10 - E03.9) doing well, will continue current regiment 01/19/2025 Vitamin D deficiency (ICD-10 - E55.9) stable, will continue current regiment Plan Of Treatment Treatment Notes Assessment Notes Panlobular emphysema stable, will contin ue current regiment Pure hypercholesterolemia doing well, wi ll continue current regiment Lung nodules followed with cat sc an Labile hypertension stable, will continu e current regiment Acquired hypothyroidism doing well, will continue current regiment Vitamin D deficiency stable, will contin ue current regiment Next Appt Details Follow Up: 6 Months, Reason: Provider Name:Andrew dia, 07/20/2025 09:15:00 AM, [address] [place] [address], [address], [place], [place], [phone], Provider Name:Andrew dia, 01/17/2026 07:15:00 AM, [address] [place] [address], [address], [place], [place], [phone], Provider Name:Andrew Delacruz ier, 01/24/2026 09:30:00 AM, [address], [address], [place], [phone], Progress Notes * Mora FELIZOB:1950 ([age] yo F)Acc No.[id number]:01/19/2025 Patient: Lily RANGEL Provider: Javier Waldrop MD :1950 A ge:74 Y S ex:Female Date:01/19/2025 Address: [id number] Subjective: * Chief Complaints: * R eview labs * HPI: D epression Screening: PHQ-9 L [...] all that apply: N one. S ymptom(s): patient is a 74 yo female here for visit with review of recent labs and follow up of chronic issues. * ROS: G eneral/Constitutional: Change in appetite d enies. C hills d enies. F ever d enies. O phthalmologic: Blurred vision d enies. D ischarge d enies. P ain d enies. E NT: Decreased hearing d enies. S ore throat d enies.?Swollen glands d enies. E ndocrine: Cold intolerance d enies. E xcessive thirst d enies. H eat intolerance d enies. W eight loss d enies. R espiratory: Cough d enies. S hortness of breath at rest d enies. S hortness of breath with exertion d enies. W heezing d enies. C ardiovascular: Chest pain at rest d enies. C hest pain with exertion?denies. I rregular heartbeat d enies. S hortness of breath d enies. ? G astrointestinal: Abdominal pain d enies. C hange in bowel habits d enies. D iarrhea d enies. N ausea d enies. R ectal bleeding d enies. V omiting d enies . G enitourinary: Blood in urine d enies. D ifficulty urinating d enies. F requent urination d enies. U rinary incontinence D enies. M usculoskeletal: Painful joints d enies. W eakness d enies. ? S kin: Dry skin d enies. I tching d enies. D enies?Mole(s), changes in moles, new moles or any lesions of concern. D enies P hotosensitivity. R roly d enies. N eurologic: Dizziness d enies. F ainting d enies. H eadache?denies. * Medical History: * Surgical History: * Hospitalization/Major Diagno stic Procedure: * Family History: F ather: 86 yrs. M other: 90 yrs, diagnosed with Hypertension, COPD.?1 brother(s) , 1 sister(s) . . Father- [...] frequency:, 1-2 cups per day of tea. Children: no. Community involvements: yes. Exercise: yes, [facility] Gym bikes legs and sit ups 4 days a week. Housing: owning. Living with: spouse. Marital status: . Occupation: unemployed/ retired. Pets: none. Travel outside of the [place]: no. * Medications: T akingAspirin 81 MG Tablet Delayed Release 1 tablet Orally Once a day Vitamin D (Cholecalciferol) 1000 UNIT Tablet 1 tablet Orally Once a day Atorvastatin Calcium 40 MG Tablet TAKE 1 TABLET BY MOUTH EVERY DAY Levothyroxine Sodium 88 MCG Tablet TAKE 1 TABLET BY MOUTH EVERY DAY IN THE MORNING ON AN EMPTY STOMACH Metoprolol Succinate ER 50 MG Tablet Extended Release 24 Hour TAKE 1 TABLET BY MOUTH EVERY DAY Taking Aspirin 81 MG Tablet Delayed Release 1 tablet Orally Once a day Taking Vitamin D (Cholecalciferol) 1000 UNIT Tablet 1 tablet Orally Once a day Taking Atorvastatin Calcium 40 MG Tablet TAKE 1 TABLET BY MOUTH EVERY DAY Taking Levothyroxine Sodium 88 MCG Tablet TAKE 1 TABLET BY MOUTH EVERY DAY IN THE MORNING ON AN EMPTY STOMACH Taking Metoprolol Succinate ER 50 MG Tablet Extended Release 24 Hour TAKE 1 TABLET BY MOUTH EVERY DAY Not-Taking/PRNAtivan 0.5 MG Tablet 1 tablet as needed Orally every 6 hrs Advil 200 MG Tablet 1 tablet as needed Orally every 6 hrs Medication List reviewed and reconciled with the patientNot-Taking/PRN Ativan 0.5 MG Tablet 1 tablet as needed Orally every 6 hrs Not-Taking/PRN Advil 200 MG Tablet 1 tablet as needed Orally every 6 hrs Medication List reviewed and reconciled with the patient * Allergies: P enicillin G Potassium: rashyes[Allergies Verified] Objective: * Vitals: H t: 60, Wt: 209, BMI:40.81, BP:140/82, Wt-k.8. weight is up 6 pounds since 07-20-24. * P ast Orders: L ab:TSH reflex Free T4 (Order Date - 01/12/2025) (Collection Date & Time - 01/12/2025 08:00 AM) Value Reference Range TSH reflex Free T4 2.95 0.32-4.0 - uIU/mL L ab:UA ClnCatch+Micro w/rflx Cult (Order Date - 01/12/2025) (Collection Date & Time - 01/12/2025 08:00 AM) Value Reference Range Color Urine Yellow - Appearance Urine Clear - PH 6.5 5.0-9.0 - Glucose Urine UA Negative Negative - mg/dL Urine Blood Negative Negative - Specific [place] - Urine <= 1.005 1.005-1.025 - Urine Protein Negative Neg-Trace - mg/dL Urine Ketones Negative Negative - mg/dL Nitrite Urine Negative Negative - Leukocyte Esterase Urine Negative Negative - RBC Urine 0-2 0-2 - /HPF WBC Urine 0-5 0-5 - /HPF Squamous Epithelial Cell Urine 0-2 0-2 - /HP F Bacteria Urine None Seen None Seen - Hyaline Casts Urine 0-2 0-2 - /LPF L ab:Complete Blood Count Auto Diff (Order Date - 01/12/2025) (Collection Date & Time - 01/12/2025 08:00 AM) Value Reference Range White Blood Count 8.3 4.8-10.8 - X10*3/uL Red Blood Count 4.66 4.20-5.50 - X10*6/uL Hemoglobin 14.6 12.0-16.0 - g/dl Hematocrit 44.9 37.0-47.0 - % Mean Corpuscular Volume 96.4 80.0-98.0 - fL Mean Corpuscular Hemoglobin 31.3 27.0-33.0 - pg Mean Corpuscular HGB Conc 32.5 31.0-35.0 - g/ dl Red Cell Distribution Width 12.3 11.0-16.0 - % Platelet Count 293 160-400 - X10*3/uL Mean Platelet Volume 10.2 9.4-12.3 - fL Neutrophils Percent Auto 52.9 45-73 - % Imm Gran Pct Auto 0.4 0.0-0.4 - % Lymphocytes Percent Auto 31.6 20-40 - % Monocytes Percent Auto 9.2 2-11 - % Eosinophils Percent Auto 4.8 H 0-4 - % Basophils Percent Auto 1.1 0-2 - % NRBC Pct Auto 0.0 0.0-0.2 - /100WBC Neutrophils Absolute Auto 4.4 2.0-8.3 - x10* 3/uL Imm Gran Abs Auto 0.03 0.00-0.03 - X10*3/uL Lymphocytes Absolute Auto 2.6 1.2-4.9 - X10* 3/uL Monocytes Absolute Auto 0.8 0.1-1.2 - X10*3/ uL Eosinophils Absolute Auto 0.4 0.0-0.4 - X10* 3/uL Basophils Absolute Auto 0.1 0.0-0.2 - X10*3/ uL NRBC Abs Auto 0.000 0.0-0.012 - X10*3/uL L ab:Comprehensive [place]. Panel Fast (Order Date - 01/12/2025) (Collection Date & Time - 01/12/2025 08:00 AM) Value Reference Range Sodium 137 135-145 - mmol/L Bilirubin Total 0.5 0.0-1.0 - mg/dL Aspartate Amino Transferase 23 5-31 - U/L Alanine Aminotransferase 15 0-31 - U/L Total Protein 6.4 L 6.5-8.0 - g/dL Albumin Level 3.7 3.5-5.0 - g/dL Alkaline Phosphatase 84 39-117 - U/L Potassium 3.7 3.3-5.1 - mmol/L Chloride 103 96-108 - mmol/L Carbon Dioxide 27 22-29 - mmol/L Anion Gap 11 L 12-20 - Blood Urea Nitrogen 16 9-16 - mg/dL Creatinine 0.82 0.5-1.4 - mg/dL Estimated Glomerular Filt Rate > 60 - Glucose Fasting 83 60-99 - mg/dL Calcium 8.6 8.4-10.2 - mg/dL L ab:Lipid Panel (Order Date - 01/12/2025) (Collection Date & Time - 01/12/2025 08:00 AM) Value Reference Range Triglycerides 62 <150 - mg/dL Cholesterol 149 <200 - mg/dL LDL Cholesterol Calculated 74 <100 - mg/dL HDL Cholesterol 63 >40 - mg/dL L ab:Vitamin D 25-OH Total (Order Date - 01/12/2025) (Collection Date & Time - 01/12/2025 08:00 AM) Value Reference Range Vitamin D 25-OH Total 35.0 >30 - ng/mL * Examination: G eneral Examination: GENERAL APPEARANCE: w ell developed, well nourished, in no acute distress. HEAD: n ormocephalic, atraumatic. EYES: p upils equal, round, reactive to light and accommodation, sclera non-icteric. EARS: n ormal. ORAL CAVITY: m ucosa moist. THROAT: c lear. NECK/THYROID: n corey supple, full range of motion, no cervical lymphadenopathy, no bruits. SKIN: w arm and dry, no suspicious lesions. HEART: r egular rate and rhythm, S1, S2 normal, no murmurs.? LUNGS: c lear to auscultation bilaterally. BREASTS: N o mass, no lump. ABDOMEN: s oft, nontender, nondistended, bowel sounds present, normal, no organomegaly , no masses palpable. RECTAL EXAM: d ecline. FEMALE GENITOURINARY: d one by edger automatic. EXTREMITIES: n o clubbing, cyanosis, or edema. NEUROLOGIC: n onfocal, motor strength normal upper and lower extremities, sensory exam intact. Assessment: * Assessment: 1. P anlobular emphysema - J43.1 (Primary) 2 . P ure hypercholesterolemia - E78.00 3 . L gavi nodules - R91.8 4 . L abile hypertension - I10 5 . A cquired hypothyroidism - E03.9 6 . V itamin D deficiency - E55.9 Plan: * Treatment: 2. P ure hypercholesterolemia Notes: doing well, will continue current regiment 3. L gavi nodules Notes: followed with cat scan 4. L abile hypertension Notes: stable, will continue current regiment 5. A cquired hypothyroidism Notes: doing well, will continue current regiment 6. V itamin D deficiency Notes: stable, will continue current regiment * Procedure Codes: G 2211 Complex e/m visit add on * Follow Up: 6 Months * * Sign off status: Completed true * Provider: Javier Waldrop MD Date: 0 01/19/2025 Generated for Vinita gracia/Jeet/Cyndismitting on: 1 09/18/2024 01:11 PM EST History and Physical Notes * HPI (History of Present Illness) Category Sub-Category Detail Notes Category Not es Symptom(s) patient is a 74 yo female here for visit with review of recent labs and follow up [...] had two or more falls in the year?: No Communication Needs Communication Needs Does the patient have a hearing impairment: No Does the patient have a vision impairmen t?: Yes If yes, what is the vision impairment?: Glasses Does the patient have a cognition impair ment?: No Examination Category Sub-Category Detail Notes Category Not es General Examination GENERAL APPEARANCE: well dev eloped, well nourished, in no acute distress HEAD: normocephalic, atrau matic EYES: pupils equal, round, reactive to light and accommodation, sclera non-icteric EARS: normal THROAT: clear NECK/THYROID: neck supple, full ra nge of motion, no cervical lymphadenopathy, no bruits HEART: regular rate and rhy thm, S1, S2 normal, no murmurs LUNGS: clear to auscultatio n bilaterally ABDOMEN: soft, nontender, non distended, bowel sounds present, normal, no organomegaly , no masses palpable NEUROLOGIC: nonfocal, motor stre ngth normal upper and lower extremities, sensory exam intact SKIN: warm and dry, no karuna picious lesions EXTREMITIES: no clubbing, cyanosi s, or edema BREASTS: No mass, no lump RECTAL EXAM: decline FEMALE GENITOURINARY: done by edger automatic ORAL CAVITY: mucosa moist
--- OUTSIDE RECORDS SUMMARY | 2025-03-30 08:12 | XMS_ITS ---
Author Organization Andrew Waldrop MD Address [address] [place] [phone] Care Team Providers Care Software Installer Name Role Phone Andrew Waldrop Primary Care Provider REASON FOR VISIT Chest CT due . Encounters Encounter Location Date Provider Diagnosis Andrew Waldrop MD [address] [facility] [address] [place] [phone] 03/30/2025 Andrew Waldrop Lung nodules R91.8 Assessments Encounter Date Diagnosis (ICD Code) Assessment Notes Treatment Notes Treatment Clinical Notes Section Notes 03/30/2025 Lung nodules (ICD-10 - R91.8) Order made and put into the Future order folder for . Plan Of Treatment Treatment Notes Assessment Notes Lung nodules Order made and put i nto the Future order folder for . Pending Test Test Name Order Date CT chest wo con 03/30/2025 Next Appt Details Provider Name:Andrew Delacruz ier, 07/20/2025 09:15:00 AM, [address] [place] [address], [place] [address], [place], [place], [phone], Provider Name:Andrew dia, 01/17/2026 07:15:00 AM, [address] [place] [address], [address], [phone], Provider Name:Andrew dia, 01/24/2026 09:30:00 AM, [address], [address], [place], [place], [phone], Progress Notes * Mora TOWNSENDOB:1950 ([age] yo F)Acc No.[id number]:03/30/2025 Patient: Lily RANGEL :1950 A ge:75 Y S ex:Female Address:[address] [place] [address] [place] [phone] Subjective: * Chief Complaints: * C hest CT due . * Medical History: * Surgical History: * Hospitalization/Major Diagno stic Procedure: * Medications: Objective: * Vitals: * Physical Examination: Assessment: * Assessment: 1. L gavi nodules - R91.8 Plan: * Treatment: * Procedure Codes: * true * Date: Generated for Vinita gracia/Jeet/Carrilloitting on: 09/18/2024 01:11 PM EST
--- OUTSIDE RECORDS SUMMARY | 2025-07-05 04:15 | XMS_ITS ---
Author Organization Andrew Waldrop MD Address [address] [place], [place] [phone] Care Team Providers Care Staff Therapist Name Role Phone Andrew Waldrop Primary Care Provider Allergies Allergen (clinical drug ingredient) Drug/Non Drug Allergy documented on EMR Reaction Allergy Type Onset Date Status penicillin G Penicillin G Potassium rash Drug Allergy Active Reason For Referral Reason Cervical disc diseas e please eval and treat for physical therapy Diagnosis 1 Cervical disc diseas e (M50.90) Referral Organization Andrew Waldrop MD Referring Provider First Name Anderw Referring Provider Last Name Benjie Referring Provider Speciality Internal M edicine Referred Provider [facility] Referred Provider Specialty Physical The rapist General Notes Barbie Todd 1 09:54:37 AM >order given to patient and faxed to [facility] dept. Patient will make her own appt, Barbie Todd 07/13/2025 01:46:08 PM > patient is aware of appt Referral Priority Routine Referral Appointment Date 08/08/2025 REASON FOR VISIT left shoulder pain x 3 weeks no injury Medications Medication SIG (Take, Route, Frequency, Duration) Notes Start Date End Date Status Atorvastatin Calcium 40 MG TAKE 1 TABLET BY MOUTH EVERY DAY Orally Once a day for 90 days Active Metoprolol Succinate ER 50 MG TAKE 1 TABLET BY MOUTH EVERY DAY for 90 Active Advil 200 MG 1 tablet as needed Orally every 6 hrs Not-Taking Ativan 0.5 MG 1 tablet as needed Orally every 6 hrs for 5 days 05/07/2017 Not-Taking Levothyroxine Sodium 88 MCG TAKE 1 TABLET BY MOUTH EVERY DAY IN THE MORNING ON AN EMPTY STOMACH for 90 Active Vitamin D (Cholecalciferol) 1000 UNIT 1 tablet Orally Once a day 11/11/2016 Active Aspirin 81 MG 1 tablet Orally Once a day for 30 day(s) 02/10/2018 Active Ibuprofen 800 MG 1 tablet with food o r milk as needed Orally every 8 hrs for 30 days 07/05/2025 Active Immunizations Vaccine Route Administration Date Status Comme nts Influenza High Dose IM Intramuscular 07/05/2025 Administer ed Problems Problem Type SNOMED Code ICD Code Onset Dates Problem Status W/U Status Risk Notes Problem Cervical disc disease (411558962) Cervical disc disease (M50.90) Active confirmed Vital Signs Blood pressure systolic 110 mm Hg 07/05/20 25 Blood pressure diastolic 70 mm Hg 025 Height 60 in 07/05/2025 weight refused Encounters Encounter Location Date Provider Diagnosis Andrew Waldrop MD [address] [place] [address] [place] [phone] 07/05/2025 Andrew Waldrop Cervical disc disease M50.90 Assessments Encounter Date Diagnosis (ICD Code) Assessment Notes Treatment Notes Treatment Clinical Notes Section Notes 07/05/2025 Cervical disc disease (ICD-10 - M50.90) referral to physical therapy, patoent verbalized understanding of medication and directions for use Plan Of Treatment Medication Medication Name Sig Start Date Stop Date Notes Ibuprofen 800 MG 1 tablet with food o r milk as needed Orally every 8 hrs for 30 days 07/05/2025 Treatment Notes Assessment Notes Cervical disc disease referral to physic al therapy, patoent verbalized understanding of medication and directions for use Referrals Referral Date Details 07/05/2025 07/05/2025, Cervical disc disease please eval and treat for physical therapy, P.[facility]. [facility] Next Appt Details Follow Up: 3 Weeks, Reason: Provider Name:Andrew dia, 07/20/2025 09:15:00 AM, [address] [place] [address], Suite [facility], [place], [place], [phone], Provider Name:Andrew dia, 01/17/2026 07:15:00 AM, [address] [place] [address], [address], [place], [place], [phone], Provider Name:Andrew Cristina Delacruz ier, 01/24/2026 09:30:00 AM, [address] [facility], [address], [place], [phone], Progress Notes * Mora FELIZOB:1950 ([age] yo F)Acc No.[id number]:07/05/2025 Progress Notes Patient: Lily RANGEL Provider: Javier Waldrop MD :1950 A ge:75 Y S ex:Female Date:07/05/2025 Address:[id number] Subjective: * Chief Complaints: * L eft shoulder pain x 3 weeks no injury * HPI: S ymptom(s): patient is a 75 yo fema;le here with complaint of having pain in left arm. worse in shoulder and to elbow. . worse when she turns. * ROS: G eneral/Constitutional: Denies C hills. D enies F atigue. D enies F ever. D enies H eadache. E NT: Denies S ore throat. R espiratory: Denies C ough. D enies S hortness of breath at rest. D enies S hortness of breath with exertion. G astrointestinal: Denies D iarrhea. D enies N ausea. * Medical History: * Surgical History: * Hospitalization/Major Diagno stic Procedure: * Medications: T akingAspirin 81 MG Tablet Delayed Release 1 tablet Orally Once a day Vitamin D (Cholecalciferol) 1000 UNIT Tablet 1 tablet Orally Once a day Metoprolol Succinate ER 50 MG Tablet Extended Release 24 Hour TAKE 1 TABLET BY MOUTH EVERY DAY Atorvastatin Calcium 40 MG Tablet TAKE 1 TABLET BY MOUTH EVERY DAY Orally Once a day Levothyroxine Sodium 88 MCG Tablet TAKE 1 TABLET BY MOUTH EVERY DAY IN THE MORNING ON AN EMPTY STOMACH Taking Aspirin 81 MG Tablet Delayed Release 1 tablet Orally Once a day Taking Vitamin D (Cholecalciferol) 1000 UNIT Tablet 1 tablet Orally Once a day Taking Metoprolol Succinate ER 50 MG Tablet Extended Release 24 Hour TAKE 1 TABLET BY MOUTH EVERY DAY Taking Atorvastatin Calcium 40 MG Tablet TAKE 1 TABLET BY MOUTH EVERY DAY Orally Once a day Taking Levothyroxine Sodium 88 MCG Tablet TAKE 1 TABLET BY MOUTH EVERY DAY IN THE MORNING ON AN EMPTY STOMACH Not-Taking/PRNAtivan 0.5 MG Tablet 1 tablet as needed Orally every 6 hrs Advil 200 MG Tablet 1 tablet as needed Orally every 6 hrs Medication List reviewed and reconciled with the patientNot- Taking/PRN Ativan 0.5 MG Tablet 1 tablet as needed Orally every 6 hrs Not-Taking/PRN Advil 200 MG Tablet 1 tablet as needed Orally every 6 hrs Medication List reviewed and reconciled with the patient * Allergies: P enicillin G Potassium: rashyes[Allergies Verified] Objective: * Vitals: H t: 60, BP:110/70. weight refused. * Examination: G eneral Examination: GENERAL APPEARANCE: a lert, well hydrated, in no distress.? HEAD: n ormocephalic. SKIN: g ood turgor. HEART: r egular rate and rhythm, no murmurs, rubs, gallops.? LUNGS: f ew wheezes. NEUROLOGIC: a lert and oriented normal dtr's on the left and normal strength. Assessment: * Assessment: 1. C ervical disc disease - M50.90 (Primary) Plan: * Treatment: * Immunizations: Influenza High Dose : 0.5 mL (Dose No:1) (Route: Intramuscular) given by Karen Beltran , Office Staff on Left Deltoid * Procedure Codes: 9 0662 FLU VACC PRSV FREE INC [id number] ADMN FLU VAC NO FEE SCHED SAME DAY * Preventive Medicine: Immunizations: I nfluenza H ave you had a flu shot since the most recent May 07? Y es. * Follow Up: 3 Weeks * * Sign off status: Completed true * Provider: Javier Waldrop MD Date: Generated for [place] gracia/Jeet/Estuardo on: 09/18/2024 01:12 PM EST History and Physical Notes * Examination Category Sub-Category Detail Notes Category Not es General Examination GENERAL APPEARANCE: alert, w ell hydrated, in no distress HEAD: normocephalic HEART: regular rate and rhy thm, no murmurs, rubs, gallops LUNGS: few wheezes NEUROLOGIC: alert and oriented n ormal dtr's on the left and normal strength SKIN: good turgor Consultation Request Notes Referral Date Referring Provider Referred Provider Not es 07/05/2025 Andrew Waldrop [facility] Cervical disc disease please eval and treat for physical therapy
--- OUTSIDE RECORDS SUMMARY | 2025-07-19 02:30 | XMS_ITS ---
Author Organization Andrew Waldrop MD Address [address] [facility] [address] [place] [phone] Care Team Providers Care Janitorial Tech Name Role Phone Andrew Waldrop Primary Care Provider [phone] REASON FOR VISIT fasting lipids Encounters Encounter Location Date Provider Diagnosis Andrew Waldrop MD [address] [facility] [address] [place] [phone] 07/19/2025 Andrew Waldrop Pure hypercholestero lemia E78.00 Assessments Encounter Date Diagnosis (ICD Code) Assessment Notes Treatment Notes Treatment Clinical Notes Section Notes 07/19/2025 Pure hypercholesterolemia (ICD-10 - E78.00) Plan Of Treatment Pending Test Test Name Order Date Liver Panel 07/19/2025 Lipid Panel with Reflex 07/19/2025 Next Appt Details Provider Name:Andrew dia, 07/20/2025 09:15:00 AM, [address] [place] [address], [address], [phone], Provider Name:Andrew dia, 01/17/2026 07:15:00 AM, [address] [place] [address], [address], [phone], Provider Name:Andrew dia, 01/24/2026 09:30:00 AM, [address] [place] [address], [address], [phone], Progress Notes * Mora FELIZOB:1950 ([age] yo F)Acc No.[id number]:07/19/2025 Progress Note Patient: Lily RANGEL Provider: Javier Waldrop MD :1950 A ge:75 Y S ex:Female Date:07/19/2025 Address:[address] [place], [place] [phone] Subjective: * Chief Complaints: * 1 . Fasting lipids. * Medical History: Objective: * Vitals: Assessment: * Assessment: 1. P ure hypercholesterolemia - E78.00 (Primary) Plan: * Treatment: * Procedure Codes: 3 6415 VENIPUNCT, ROUTINE* * * The named appointment provid er may or may not be the originator of this progress note, and it is not deemed complete until electronically signed by the appointment provider. Sign off status: Pending * Provider: Javier Waldrop MD Date: 09/18/2024 Generated for [place] gracia/Jeet/Carrilloitting on: 09/18/2024 01:11 PM EST
[2025-07-19 11:45] LABS: Alanine Aminotransferase 17 U/L (0-31); Albumin Level 4.0 g/dL (3.5-5.0); Alkaline Phosphatase 78 U/L (39-117); Aspartate Amino Transferase 28 U/L (5-31); Cholesterol 155 mg/dL (<200); HDL Cholesterol 64 mg/dL (>40); Total Protein 6.8 g/dL (6.5-8.0); Triglycerides 70 mg/dL (<150)
--- OUTSIDE RECORDS SUMMARY | 2025-07-19 13:11 | XMS_ITS | Clinical Summary ---
Author Organization [facility] Address [address] [place] [phone] Phone Care Team Providers Care [employer] Name Role Phone Andrew Waldrop MD Primary [...] on patient's age to complete this topic IPV VACCINES Aged Out No longer eligi ble [...] Maintenance Insurance [place] [id number] [facility] MEDICARE SUPPLEMENT MEDICARE PART A & B MEDICARE SUPPLEMENT MEDICARE PART A & B MEDICARE SUPPLEMENT MEDICARE PART A & B MEDICARE SUPPLEMENT MEDICARE PART A & B MEDICARE SUPPLEMENT MEDICARE PART A & B MEDICARE SUPPLEMENT MEDICARE PART A & B MEDICARE SUPPLEMENT MEDICARE PART A & B Member Subscriber Plan / Payer (Ef fective 2016-Present) Name:Lily Feliz Member ID:[id number] Relation to Subscriber:Self Name:TrayCarrieen Subscriber ID:[id number] Payer ID:[id number] Group ID:Not on file Type:Medicare Address: [facility] [employer] [facility] [address] MEDICARE SUPPLEMENT MEDICARE PART A & B MEDICARE SUPPLEMENT Care Teams [employer] Relationship Specialty Start Date End Date Andrew Waldrop MD [address] [place] [phone] (work) PCP - General 09/09/17 Additional Source Comments The information contained in this document represents components of the legal health record. It is not the complete legal health record.[facility]
--- OUTSIDE RECORDS SUMMARY | 2025-07-19 13:12 | XMS_ITS | Patient Health Record ---
Author Organization Andrew Waldrop MD Address [address] [place], [place] [id number] Care Team Providers Care [employer] Leader Name Role Phone Andrew Waldrop Primary Care Provider [phone] Allergies Allergen (clinical drug ingredient) Drug/Non Drug Allergy documented on EMR Reaction Allergy Type Onset Date Status penicillin G Penicillin G Potassium rash Drug Allergy Active Results Component Value Reference Range Notes Complete Blood Count Auto Di ff Reviewed date:01/12/2025 12:34:04 PM Interpretation: Performing Lab:[facility], [address] [place] [phone] Notes/Report: White Blood Count 8.3 4.8-10.8 X10*3/uL [...] 0.0-0.2 /100WBC Neutrophils Absolute Auto 4.4 2.0-8.3 x10*3/uL Imm Gran Abs Auto 0.03 0.00-0.03 X10*3/uL Lymphocytes Absolute Auto 2.6 1.2-4.9 X10*3/uL Monocytes Absolute Auto 0.8 0.1-1.2 X10*3/uL Eosinophils Absolute Auto 0.4 0.0-0.4 X10*3/uL Basophils Absolute Auto 0.1 0.0-0.2 X10*3/uL NRBC Abs Auto 0.000 0.0-0.012 X10*3/uL Comprehensive [facility]. Panel Fa Reviewed date:01/12/2025 12:33:44 PM Interpretation: Performing Lab:[address] [phone] Notes/Report: Sodium 137 135-145 mmol/L Potassium 3.7 [...] Panel Reviewed date:01/12/2025 12:11:30 PM Interpretation: Performing Lab:[address] [phone] Notes/Report: Triglycerides 62 <150 mg/dL Desirable Triglyceride: [...] Total Reviewed date:01/12/2025 12:20:25 PM Interpretation: Performing Lab:[address] [phone] Notes/Report: Vitamin D 25-OH Total 35.0 >30 [...] T4 Reviewed date:01/12/2025 12:20:59 PM Interpretation: Performing Lab:[facility], [address] [place] [phone] Notes/Report: TSH reflex Free T4 2.95 0.32-4.0 uIU/mL UA ClnCatch+Micro w/rflx Cul t Reviewed date:01/12/2025 12:19:30 PM Interpretation: Performing Lab:[facility], [address] [place] [phone] Notes/Report: Urine, Clean Catch Color Urine Yellow Appearance Urine Clear PH 6.5 5.0-9.0 Glucose Urine UA Negative Negative mg/dL Urine Blood Negative Negative Specific Ruth - Urine <= 1.005 1.005-1.025 Urine Protein Negative Neg-Trace mg/dL Urine Ketones Negative Negative mg/dL Nitrite Urine Negative Negative Leukocyte Esterase Urine Negative Negative RBC Urine 0-2 0-2 /HPF WBC Urine 0-5 0-5 /HPF Squamous Epithelial Cell Urine 0-2 0-2 /HPF Bacteria Urine None Seen None Seen Hyaline Casts Urine 0-2 0-2 /LPF Liver Panel Reviewed date:07/20/2024 05:36:54 PM Interpretation: Performing Lab:[facility], [address] [place] [phone] Notes/Report: Bilirubin Total 0.6 0.0-1.0 mg/dL Bilirubin Direct 0.2 0.0-0.5 mg/dL Aspartate Amino Transferase 26 5-31 U/L Alanine Aminotransferase 16 0-31 U/L Total Protein 6.8 6.5-8.0 g/dL Albumin Level 3.9 3.5-5.0 g/dL Alkaline Phosphatase 82 39-117 U/L Lipid Panel Reviewed date:07/20/2024 05:36:26 PM Interpretation: Performing Lab:[address] [phone] Notes/Report: Triglycerides 61 <150 mg/dL Desirable Triglyceride: [...] T4 Reviewed date:07/20/2024 05:36:18 PM Interpretation: Performing Lab:[facility], [address] [place] [phone] Notes/Report: TSH reflex Free T4 0.73 0.32-4.0 uIU/mL Bryan Santana Reviewed date:07/20/2024 01:49:31 PM Interpretation: Performing Lab:[facility], [address] [place] [phone] Notes/Report: Bryan Santana See Note Specimen held untested for 24 hours; Call to request Chemistry testing. Bryan Santana Reviewed date:01/12/2025 12:11:15 PM Interpretation: Performing Lab:[facility], [address] [place] [phone] Notes/Report: Bryan Santana See Note Specimen held untested for 24 hours; Call to request Chemistry testing. MM tomosynthesis screening B I Reviewed date:05/31/2025 12:40:56 PM Interpretation: Performing Lab: Notes/Report: [facility] [address] [place] [address] Mammography Report Signed Patient: Lily Feliz MR#: [id number] : 1950 Acct:[id number] Age/Sex: 75 / F ADM Date: 05/28/25 Loc: HO.MAMMO Attending Dr: Andrew Waldrop MD Ordering Physician: Andrew Waldrop MD Results: 1Ne gative Date of Service: 05/28/25 Follow Up: 1 Year From Orig inal Mammogram Procedure(s): MM tomosynthesis screening BI Accession Number(s): [id number] cc: Andrew Waldrop MD Reason For Exam: SCREENING EXAMINATION: MM SCREENING DIGITAL BREAST TOMOSYNTHESIS, BILATERAL CLINICAL INFORMATION: Screening. Asymptomatic. COMPARISON: Comparison made to multiple prior, most recent May 22, 2024, and most remote April 29, 2020. TECHNIQUE: Digital breast tomosynthesis is performed in mediolateral oblique and craniocaudal views along with computer-aided detection (CAD). Synthesized 2D images are generated from the tomosynthesis. FINDINGS: BREAST COMPOSITION: The breasts are heterogeneously dense, which may obscure small masses. BILATERAL BREASTS: No significant masses, suspicious calcifications or other abnormalities are seen in either breast. MM/MM tomosynthesis screening BI IMPRESSION: BILATERAL BREASTS: Negative, no mammographic evidence of malignancy. Normal interval follow-up is recommended in 12 months. ASSESSMENT: BI-RADS: Category 1: Negative RECOMMENDATION: Routine annual mammography screening. FOLLOW-UP: 1 year F/U This examination should not preclude the clinical evaluation of a suspicious palpable abnormality. This patient's information was entered into a reminder system with a target due date for their next mammogram. Electronically signed by: Gabriel Olivo MD 05/29/2025 05:51 PM EDT Dictated By: Gabriel Olivo MD Signed By: <Electronically signed by Gabriel Olivo MD in OV> 05/29/25 1751 DD/ 1007 TD/TT: 05/28/25 1020 Site Identification Specialist: Aly[facility]'s [address] [place] [address] Mammography Report Signed Patient: Lily Feliz MR#: [id number] : 1950 Acct:[id number] Age/Sex: 75 / F ADM Date: 05/28/25 Loc: MAMMO Attending Dr: Andrew Waldrop MD Ordering Physician: Andrew Waldrop MD Results: 1Ne gative Date of Service: 05/28/25 Follow Up: 1 Year From [facility] Mammogram Procedure(s): MM tomosynthesis screening BI Accession Number(s): [id number] cc: Andrew Waldrop MD Reason For Exam: SCREENING EXAMINATION: MM SCREENING DIGITAL BREAST TOMOSYNTHESIS, BILATERAL CLINICAL INFORMATION: Screening. Asymptomatic. COMPARISON: Comparis on made to multiple prior, most recent May 22, 2024, and most remote April 29, 2020. TECHNIQUE: Digital breast tomosynthesis is performed in mediolateral oblique and craniocaudal views along with computer-aided detection (CAD). Synthesized 2D image s are generated from the tomosynthesis. FINDINGS: BREAST COMPOSITION: The breasts are heterogeneously dense, which may obscure small masses. BILATERAL BREASTS: N o significant masses, suspicious calcifications or other abnormalities are seen in either breast. MM/MM tomosynthesis screening BI IMPRESSION: BILATERAL BREASTS: Negative, no mammographic evidence of malignancy. Normal interval follow-up is recommended in 12 months. ASSESSMENT: BI-RADS: Category 1: Negative RECOMMENDATION: Routine annual mammography screening. FOLLOW-UP: 1 year F/U This examination conrado uld not preclude the clinical evaluation of a suspicious palpable abnormality. This patient's information was entered into a reminder system with a target due date for their next mammogram. Electronically sharon d by: Gabriel Olivo MD 05/29/2025 05:51 PM EDT [employer] Dictated By: Gabriel Olivo MD Signed By: <Electronically signed by Gabriel Olivo MD in OV> 05/29/25 1751 DD/ 1007 TD/TT: 05/28/25 1020 Site Identification Specialist: Brayn Santana Reviewed date:07/19/2025 12:44:06 PM Interpretation: Performing Lab:[facility], [address] [place] [phone] Notes/Report: Bryan Santana See Note Specimen held untested for 24 hours; Call to request Chemistry testing. Reason For Referral Reason Cervical disc diseas e please eval and treat for physical therapy Diagnosis 1 Cervical disc diseas e (M50.90) Referral Organization Andrew Waldrop MD Referring Provider First Name Andrew Referring Provider Last Name Benjie Referring Provider Speciality Internal M edicine Referred Provider [facility] [place] Referred Provider Specialty Physical The rapist General Notes Barbie Todd 1 09:54:37 AM >order given to patient and faxed to [facility] [place] [place] PT dept. Patient will make her own appt, Barbie Todd 07/13/2025 01:46:08 PM > patient is aware of appt Referral Priority Routine Referral Appointment Date 08/08/2025 Medications Medication SIG (Take, Route, Frequency, Duration) Notes Start Date End Date Status Atorvastatin Calcium 40 MG TAKE 1 TABLET BY MOUTH EVERY DAY Orally Once a day for 90 days Active Metoprolol Succinate ER 50 MG TAKE 1 TABLET BY MOUTH EVERY DAY for 90 Active Vitamin D (Cholecalciferol) 1000 UNIT 1 tablet Orally Once a day 11/11/2016 Active Aspirin 81 MG 1 tablet Orally Once a day for 30 day(s) 02/10/2018 Active Ibuprofen 800 MG 1 tablet with food o r milk as needed Orally every 8 hrs for 30 days 07/05/2025 Active Advil 200 MG 1 tablet as needed Orally every 6 hrs Not-Taking Ativan 0.5 MG 1 tablet as needed Orally every 6 hrs for 5 days 05/07/2017 Not-Taking Levothyroxine Sodium 88 MCG TAKE 1 TABLET BY MOUTH EVERY DAY IN THE MORNING ON AN EMPTY STOMACH for 90 Active Immunizations Vaccine Route Administration [...] Administe red Fluarix Quadrivalent IM Intramuscular 05/22/2019 [facility] red PPSV23 (Pnemovax) IM Intramuscular 11/13/2019 Administered Influenza High Dose IM Intramuscular 05/09/2020 Administer ed Covid Vaccine Unknown 11/02/2020 Administered [facility] Covid Vaccine Unknown 12/02/2020 Administered Moderna Influenza High Dose IM Intramuscular 05/30/2021 Administer ed SARS-COV-2 Moderna Unknown 07/21/2021 Administered [facility] SARS-COV-2 Pfizer Unknown 12/18/2021 Administered Influenza High Dose IM Intramuscular 05/15/2022 Administer ed SARS-COV-2 Moderna Unknown 06/16/2022 Administered [facility] Influenza High Dose IM Intramuscular 08/02/2023 Administer ed Influenza High Dose IM Intramuscular 07/20/2024 Administer ed Influenza High Dose IM Intramuscular 07/05/2025 Administer ed Fluarix Quadrivalent Unknown 05/07/2016 Refused [...] Risk Notes Problem 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) PVC (premature ventricular contraction) (I49.3) Active confirmed Problem 06707577 Vitamin D defici ency (E55.9) Active confirmed Problem Anxiety (24017577) Anxiety (F41.9) Active confirmed Problem 9648433 Panlobular emphy sema (J43.1) Active confirmed Problem 739304543 Other specified menopausal and perimenopausal disorders (N95.8) Active confirmed Problem 810349444 Acquired hypothy roidism (E03.9) Active confirmed Problem 29638952 Labile hypertens ion (I10) Active confirmed Problem 856006574 Lung nodules (R91.8) Active confirmed Problem Cervical disc disease (791299797) Cervical disc disease (M50.90) Active confirmed Problem 889736287 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) Active confirmed Problem 0291421 Former smoker (Z87.891) Active confirme d Problem 726754718 Family history o f hypothyroidism (Z83.49) Active confirmed Problem 632472487 Pure hypercholesterolemia (E78.00) Active confirmed Problem 021919939 Microscopic camacho turia (R31.29) Active confirmed Problem 462572579 Osteopenia of ri ght hip (M85.851) Active confirmed Vital Signs Blood pressure diastolic 70 mm Hg 07/05/2025 sara ght refused Height 60 in 07/05/2025 weight refused Blood pressure systolic 110 mm Hg 07/05/2025 weig ht refused Weight 209 lbs 01/19/2025 weight is up 6 pounds since 07-20-24 BMI 40.81 kg/m2 01/19/2025 weight is up 6 pounds since 07-20-24 Encounters Encounter Location Date Provider Diagnosis Andrew Waldrop MD [address] [place] [id number] 01/12/2025 Andrew Waldrop Labile hypertension I10 ; Pure hypercholesterolemia E78.00 ; Vitamin D deficiency E55.9 and Acquired hypothyroidism E03.9 Andrew Waldrop MD [address] [id number] 07/19/2025 Andrew Waldrop Pure hypercholestero lemia E78.00 Andrew Waldrop MD [address] [place] [id number] 07/20/2024 Andrew Waldrop Panlobular emphysema J43.1 ; Osteopenia of right hip M85.851 ; Acquired hypothyroidism E03.9 ; Encounter for immunization Z23 ; Pure hypercholesterolemia E78.00 and Labile hypertension I10 Andrew Waldrop MD [address] [id number] 01/19/2025 Andrew Waldrop Panlobular emphysema J43.1 ; Pure hypercholesterolemia E78.00 ; Lung nodules R91.8 ; Labile hypertension I10 ; Acquired hypothyroidism E03.9 and Vitamin D deficiency E55.9 Andrew Waldrop MD [address] [id number] 07/05/2025 Andrew Waldrop Cervical disc diseas e M50.90 Andrew Waldrop MD [address] [id number] 07/21/2024 Andrew Waldrop MD [address] [place] [id number] 03/30/2025 Andrew Waldrop Lung nodules R91.8 Assessments Encounter Date Diagnosis (ICD Code) Assessment Notes Treatment Notes Treatment Clinical Notes Section Notes 01/12/2025 Labile hypertension (ICD-10 - I10) 07/19/2025 Pure hypercholesterolemia (ICD-10 - E78.00) 07/20/2024 Panlobular emphysema (ICD-10 - J43.1) instructed in use of inhaler 07/20/2024 Osteopenia of right hip (ICD-10 - M85.851) no need for treatment 01/19/2025 Panlobular emphysema (ICD-10 - J43.1) stable, will continue current regiment 07/05/2025 Cervical disc diseas e (ICD-10 - M50.90) referral to physical therapy, patoent verbalized understanding of medication and directions for use 03/30/2025 Lung nodules (ICD-10 - R91.8) Order [...] Electrocardiogram (EKG) 11/10/2018 BONE DENSITY DEXA 01/17/2024 Liver Panel 07/19/2025 Lipid Panel with Reflex 07/19/2025 CT chest wo con 03/30/2025 CT chest wo con 03/20/2021 XR DEXA axial skeleton 11/22/2020 XR DEXA axial skeleton 02/25/2024 Future Test Test Name Order Date CT CHEST NO CONTRAST 03/19/2021 CT chest wo con 03/23/2023 Next Appt Details Provider Name:Andrew Delacruz ier, 07/20/2025 09:15:00 AM, [address], [address], [place], [place], [phone], Provider Name:Andrew Delacruz ier, 01/17/2026 07:15:00 AM, [address], [address], [place], [place], [phone], Provider Name:Andrew Delacruz ier, 01/24/2026 09:30:00 AM, [address], [address], [place], [place], [phone], Insurance Providers Payer Name Payer Address Payer Phone Subscriber Number Group Number Insured Name Patient Relationship to Insured Coverage Start Date Coverage End Date MEDICARE NHIC LEIGH [address] [place] [address] [id number] Lily Feliz Self - patient is the insured [address] [place] [id number] Lily Feliz Self - patient is the insured 6 Medical (General) History Medical History History ICD Code hematuria work up 2008 [employer] is Dr. Anay Camarena; pap smear 06/07 (Neg); 07/2013 Colonoscopy 2005; Colonoscopy 05/08/16 w/Sandy Arnold (repeat 10 years) cad on ct of chest 2016 refuses bisphosphanate adult lung cancer screeing program at [facility]
--- OUTSIDE RECORDS SUMMARY | 2025-07-19 13:12 | XMS_ITS | Patient Health Record ---
Author Organization [facility] Address [address] [place] [address] Care Team Providers Care Grooming Assistant Name Role Phone Andrew Waldrop MD Primary Care Provider Darnell Blackwood Jr Unavailable [phone] Allergies Allergen (clinical drug ingredient) Drug/Non Drug [...] GM As directed Orally Over the specified time.; Duration: 1 day(s) 02/05/2016 Active Problems Problem Type SNOMED Code ICD Code Onset Dates Problem Status W/U Status Risk Notes Problem Colon cancer screening (409027732) Colon cancer screening (Z12.11) Active confirmed Problem Pre-procedure evaluation check (137821947) Encounter for other preprocedural examination (Z01.818) Active confirmed Plan Of Treatment Future Test Test Name Order Date COLONOSCOPY 02/05/2016 Insurance Providers Payer Name Payer Address Payer Phone Subscriber Number Group Number Insured Name Patient Relationship to Insured Coverage Start Date Coverage End Date [facility] [address] [place] [phone] [id number] REMIGIO TOWNSEND Self - patient is the insured Medical (General) History Medical History History ICD Code 7-2005 colonoscopy colon polyp, hyperplastic sinusitis COPD Denies UT,DM,CVA,renal disease Surgical History Surgery Date(Month/Year) urethral surgery tonsillectomy throat polyp removal rectal abscess incision and drainage
[2025-07-19 14:56] LABS: Reflex LDLD? No
== END 2025-07-19 10:44 | disposition home or self-care (01) ==
LOC: HO.LNP 10:43
PROVIDERS: Visit Provider Internal Medicine
DX: E78.00 Pure hypercholesterolemia, unspecified (principal)
CPT/HCPCS: 80061; 80076